=== PATIENT | male | born 1965 | race Caucasian/White ===

== ENCOUNTER 2016-11-14 17:29 | Emergency (ER) | payer OTHER ==
[~2016-11-14] VITALS: Ht 175.3 cm; Wt 117.9 kg
[~2016-11-14 17:29] MED LIST: AMOX1TAB10 PO; CETI10TA22 PO; CYCL10TA2 PO; LOSA100T6 PO; METH-37 PO; MONT10TA9 PO; NAPR500T8 PO; OMEP20CA5 PO; OXYC-250 PO; RANI150C PO
[2016-11-14 17:42] VITALS: BP 135/82
[2016-11-14] MEDS ORDERED: IPRATRPIUM/ALBUTEROL 0.5/2.5MG 3 ML NEBU. ONE (17:59)
--- NOTE | 2016-11-14 18:04 | PHYS DOC ---
Past Medical History Past Medical History: Asthma, COPD, Hypertension Past Surgical History: Cholecystectomy Additional Information: 3-4 CIGS/DAY Alcohol Use: None Drug Use: Marijuana Adult General Chief Complaint Chief Complaint: ASTHMA HPI HPI Patient is a 51 year old male, with a history of COPD, asthma and hypertension , presents emergency Department today with complaint of nonproductive cough, nasal congestion and difficulty breathing that began within the past 24 hours. Patient states he did began to have increased shortness of breath shortly after eating lunch a few hours ago. He states he became more concerned that the tibial to make it to work so he came to the emergency department. Patient is not oxygen dependent. He does have a nebulizer at home. He states he has not used his nebulizer within the past 48 hours. He denies steroid use, antibiotics , hospitalization, foreign travel within the past 90 days. Patient denies chest pain. He denies exertional dyspnea, orthopnea or PND. Review of Systems Review of Systems Constitutional: Denies fever or chills [] Eyes: Denies change in visual acuity, redness, or eye pain [] HENT: Denies nasal congestion or sore throat [] Respiratory: Denies cough or shortness of breath [] Cardiovascular: No additional information not addressed in HPI [] GI: Denies abdominal pain, nausea, vomiting, bloody stools or diarrhea [] : Denies dysuria or hematuria [] Musculoskeletal: Denies back pain or joint pain [] Integument: Denies rash or skin lesions [] Neurologic: Denies headache, focal weakness or sensory changes [] Endocrine: Denies polyuria or polydipsia [] Current Medications Current Medications Current Medications Medications (Trade) Dose Ordered Sig/Job Start Time Stop Time Status Last Admin Dose Admin Albuterol/ Ipratropium (Duoneb) 3 ml STK-MED ONCE 11/14/16 17:59 11/14/16 18:00 DC Oxymetazoline HCl (Afrin) 2 spray 1X ONCE 11/14/16 18:15 11/14/16 18:16 DC 11/14/16 18:04 2 SPRAY Prednisone (Prednisone) 50 mg 1X ONCE 11/14/16 18:15 11/14/16 18:16 DC 11/14/16 18:04 50 MG Allergies Allergies Allergies Coded Allergies Type Severity Reaction Last Updated Verified doxycycline Allergy Intermediate SWELLING RASH 12/08/15 Yes Physical Exam Physical Exam Constitutional: Well developed, well nourished, no acute distress, non-toxic appearance. [] HENT: Normocephalic, atraumatic, bilateral external ears normal, oropharynx moist, no oral exudates, boggy nasal mucosa with scant, clear rhinorrhea. Left tympanic membrane is mildly retracted with a low level fluid meniscus. There is no perforation, erythema or bulging. Is no evidence of mastoiditis. Eyes: PERRLA, EOMI, conjunctiva normal, no discharge. [] Neck: Normal range of motion, no tenderness, supple, no stridor. [] Cardiovascular:Heart rate regular rhythm, no murmur [] Lungs & Thorax: There is no evidence of respiratory distress respiratory fatigue. There is no sensory muscle use or posturing. Patient demonstrates a harsh, staccato bronchitic type cough. He is able to speak in full sentences. Oxygen saturation is 96% on room air. Lungs with a scant amount of bilateral, and expiratory wheezing. Abdomen: Bowel sounds normal, soft, no tenderness, no masses, no pulsatile masses. [] Skin: Warm, dry, no erythema, no rash. [] Back: No tenderness, no CVA tenderness. [] Extremities: No tenderness, no cyanosis, no clubbing, ROM intact, no edema. [] Neurologic: Alert and oriented X 3, normal motor function, normal sensory function, no focal deficits noted. [] Psychologic: Affect normal, judgement normal, mood normal. [] Current Patient Data Vital Signs Vital Signs Date Time Temp Pulse Resp B/P Pulse Ox O2 Delivery O2 Flow Rate FiO2 11/14/16 18:02 Room Air 11/14/16 17:42 97.9 91 20 99 97.9 EKG EKG [] Radiology/Procedures Radiology/Procedures [] Course & Med Decision Making Course & Med Decision Making Patient received Afrin nasal spray and both his nostrils, 50 mg of prednisone by mouth and DuoNeb treatment. He was reevaluated by me after this. He states that he feels much better. His lungs are clear to auscultation bilaterally. Dragon Disclaimer Dragon Disclaimer This electronic medical record was generated, in whole or in part, using a voice recognition dictation system. Departure Departure Impression: Primary Impression: Asthma exacerbation in COPD Disposition: HOME, SELF-CARE Condition: IMPROVED Referrals: AMADA BROWN MD (PCP) Patient Instructions: Asthma, Adult, [id number] Additional Instructions: 1. Use Afrin nasal spray twice a day for the next 3 days. Take the steroids as prescribed. Use your nebulizer at home every 6 hours as needed for shortness of breath. 2. Review the discharge instructions provided for self-care and reasons to return to the emergency department. 3. Contact Dr. Brown office on Tuesday to schedule follow-up appointment if there are any concerns. Scripts Prednisone 50 Mg [id number] Mg PO DAILY 5 Days Prov:CRISTHIAN ISSA 11/14/16 CRISTHIAN ISSA Nov 14, 2016 18:04
[2016-11-14] MEDS ORDERED: PREDNISONE 10 MG TABLET PO ONE (18:15)
[2016-11-14] MEDS ORDERED: OXYMETAZOLINE 0.05% NASAL SPRAY 30ML BOTTLE. NS ONE (18:15)
[2016-11-14] MEDS ORDERED: IPRATRPIUM/ALBUTEROL 0.5/2.5MG 3 ML NEBU. NEB ONE (18:15)
[2016-11-14] MEDS ORDERED: PRED50TA PO (18:18)
== END 2016-11-14 18:25 | disposition home or self-care (01) ==
LOC: ER 17:29
DX: J45.901 Unspecified asthma with (acute) exacerbation (principal); J44.9 Chronic obstructive pulmonary disease, unspecified; I10 Essential (primary) hypertension; F17.210 Nicotine dependence, cigarettes, uncomplicated; F12.10 Cannabis abuse, uncomplicated; Z88.1 Allergy status to other antibiotic agents
CPT/HCPCS: 94250; 94640; 99284; J7512; J7620

== ENCOUNTER 2017-04-19 09:20 | Emergency (ER) | payer OTHER ==
[~2017-04-19] VITALS: Ht 175.3 cm; Wt 117.9 kg
[~2017-04-19 09:20] MED LIST changes: -OXYC-250 PO; +OXYC-328 PO; +PRED50TA PO
[2017-04-19 10:05] VITALS: BP 141/93
--- NOTE | 2017-04-19 11:15 | PHYS DOC ---
Past Medical History Past Medical History: Asthma, COPD, Hypertension Past Surgical History: Cholecystectomy Alcohol Use: Occasionally Drug Use: Marijuana Adult General Chief Complaint Chief Complaint: MECHANICAL FALL HPI HPI Patient is a 52 year old male presents to the emergency department stating that he was mowing his yard on Tuesday when he fell on normal: Landed on his right hip and right shoulder. He states that he has been having increased pain and discomfort in the right shoulder with trying to move his arm. He states that he is also been having some hip pain and discomfort however his been able to ambulate without difficulty. Patient states that he's been taken ibuprofen and mobic for his pain and discomfort. He states he had the mobic for right knee pain. Patient states he's been able to ambulate without any difficulty. Patient states that he has been having some numbness and tingling into his right hand. 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 Peripheral pulses 2+ cap refill brisk less than 2 seconds good sensation noted. Patient is right-hand dominant. Review of Systems Review of Systems Constitutional: Denies fever or chills [] Eyes: Denies change in visual acuity, redness, or eye pain [] HENT: Denies nasal congestion or sore throat [] Respiratory: Denies cough or shortness of breath [] Cardiovascular: No additional information not addressed in HPI [] GI: Denies abdominal pain, nausea, vomiting, bloody stools or diarrhea [] : Denies dysuria or hematuria [] Musculoskeletal: Denies back pain. Complaint of right shoulder, right hip pain Integument: Denies rash or skin lesions [] Neurologic: Denies headache, focal weakness or sensory changes [] Endocrine: Denies polyuria or polydipsia [] Allergies Allergies Allergies Coded Allergies Type Severity Reaction Last Updated Verified doxycycline Allergy Intermediate SWELLING RASH 12/08/15 Yes Physical Exam Physical Exam Constitutional: Well developed, well nourished, no acute distress, non-toxic appearance. [] HENT: Normocephalic, atraumatic, bilateral external ears normal, oropharynx moist, no oral exudates, nose normal. [] Eyes: PERRLA, EOMI, conjunctiva normal, no discharge. [] Neck: Normal range of motion, no tenderness, supple, no stridor. [] Cardiovascular:Heart rate regular rhythm, no murmur [] Lungs & Thorax: Bilateral breath sounds clear to auscultation [] Skin: Warm, dry, no erythema, no rash. [] Back: No tenderness Extremities: Right shoulder tenderness, decreased range of motion noted in the shoulder area. Peripheral pulses are 2+ cap refill brisk less than 2 seconds. 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 Patient also noted to have tenderness in the right hip area. Patient with no tenderness noted in the knee, ankle. He is able to ambulate with a good steady gait. No cyanosis, no clubbing , ROM intact, no edema. [] Neurologic: Alert and oriented X 3, normal motor function, normal sensory function, no focal deficits noted. [] Psychologic: Affect normal, judgement normal, mood normal. [] Current Patient Data Vital Signs Vital Signs Date Time Temp Pulse Resp B/P (MAP) Pulse Ox O2 Delivery O2 Flow Rate FiO2 04/19/17 10:05 97.4 80 16 98 Room Air 97.4 EKG EKG [] Radiology/Procedures Radiology/Procedures [address] [address] IMAGING REPORT Signed PATIENT: BESSIE ZAPATA ACCOUNT: [id number] : 1965 LOCATION: ER AGE: 52 SEX: M EXAM STATUS: REG ER ORD. PHYSICIAN: COLLIN GREENE APRN REASON: fell in [facility] landed on right side,pain rt hip and shoulder. PROCEDURE: SHOULDER 2+V RIGHT Right shoulder, 3 views, 04/19/2017: History: Fall, pain There is deformity of the distal end of the right clavicle, similar to that seen on a chest radiograph from 07/24/2012. This is probably due to remote trauma with secondary degenerative change at the AC joint. No acute fracture or dislocation is identified. There is mild degenerative change at the glenohumeral joint. IMPRESSION: No acute bony abnormality is detected. DICTATED and SIGNED BY: DIVINE DALEY MD DATE: 04/19/17 1155 CC: COLLIN GREENE APRN; NON,STAFF; AMADA BROWN MD ~[] [facility] [address] [place] [address] IMAGING REPORT Signed PATIENT: BESSIE ZAPATA ACCOUNT: [id number] : 1965 LOCATION: ER AGE: 52 SEX: M EXAM STATUS: REG ER ORD. PHYSICIAN: COLLIN GREENE APRN REASON: fell in [facility] landed on right side PROCEDURE: HIP RIGHT 2V WITH PELVIS Pelvis with right hip, 3 views, 04/19/2017: History: Fall, hip pain No acute fracture or dislocation is identified. There is mild spurring at the hip joints and at the symphysis pubis. Mild degenerative changes are evident in the lower lumbar spine. IMPRESSION: No acute bony abnormality is detected. DICTATED and SIGNED BY: DIVINE DALEY MD DATE: 04/19/17 0952 CC: COLLIN GREENE APRN; NON,STAFF; AMADA BROWN MD ~ Course & Med Decision Making Course & Med Decision Making Pertinent Labs and Imaging studies reviewed. (See chart for details) X-rays were negative for any bony abnormalities. Patient will be placed in a sling with recommendations to follow-up with orthopedic. Patient will be discharged home with recommendations to continue with his home medications. Recommended ice packs on 20 minutes off 20 minutes several times today. Also recommended he take his arm out of the sling 4-5 times a day and do active range of motion. Patient will be discharged home in stable condition signs and symptoms to return back to emergency department as been provided. Patient agrees with discharge instructions treatment regimens and follow-up recommendations. All questions and concerns been answered at the patient's bedside. [] Dragon Disclaimer Dragon Disclaimer This electronic medical record was generated, in whole or in part, using a voice recognition dictation system. Departure Departure Impression: Primary Impression: Right shoulder pain Additional Impression: Right hip pain Disposition: 01 HOME, SELF-CARE Condition: STABLE Referrals: AMADA BROWN MD (PCP) Patient Instructions: Hip Pain, Shoulder Pain, [id number] Additional Instructions: Activity as tolerated. Wear the sling for comfort for the next week. Take your arm out of the sling 4-5 times a day and do active range of motion. Follow-up with orthopedic in the next week. Continue with your home medications in which you have been taken for pain and discomfort. Ice packs on 20 minutes off 20 minutes several times a day. Return back to emergency prior signs symptoms of become worse. Problem Qualifiers Primary Impression: Right shoulder pain Chronicity: acute Qualified Codes: M25.511 - Pain in right shoulder COLLIN GREENE APRN Apr 19, 2017 11:15
--- NOTE | 2017-04-19 11:55 | RAD ---
Right shoulder, 3 views, 04/19/2017: History: Fall, pain There is deformity of the distal end of the right clavicle, similar to that seen on a chest radiograph from 07/24/2012. This is probably due to remote trauma with secondary degenerative change at the AC joint. No acute fracture or dislocation is identified. There is mild degenerative change at the glenohumeral joint. IMPRESSION: No acute bony abnormality is detected.
--- NOTE | 2017-04-19 11:56 | RAD ---
Pelvis with right hip, 3 views, 04/19/2017: History: Fall, hip pain No acute fracture or dislocation is identified. There is mild spurring at the hip joints and at the symphysis pubis. Mild degenerative changes are evident in the lower lumbar spine. IMPRESSION: No acute bony abnormality is detected.
== END 2017-04-19 12:38 | disposition home or self-care (01) ==
LOC: ER 09:20
DX: M25.551 Pain in right hip (principal); M25.511 Pain in right shoulder; J44.9 Chronic obstructive pulmonary disease, unspecified; I10 Essential (primary) hypertension; Z88.1 Allergy status to other antibiotic agents; W17.1XXA Fall into storm drain or manhole, initial encounter; Y93.89 Activity, other specified; Y99.8 Other external cause status; Y92.89 Other specified places as the place of occurrence of the external cause
CPT/HCPCS: 73030; 73502; 99284-25

== ENCOUNTER 2017-09-03 15:44 | Emergency (ER) | payer OTHER ==
[2017-09-03] MEDS ORDERED: DIPHTH,PERTUSS(ACELL),TET TOX 0.5 ML DISP.SYRIN. VAX IM (16:00)
[2017-09-03] MEDS ORDERED: LIDOCAINE WITH 8.4% SOD BICARB 3 ML DISP.SYRIN. IJ (16:00)
[2017-09-03] MEDS: HYDROcodone/APAP 5/325MG 1 TAB TABLET PO (16:32)
== END 2017-09-03 16:39 | disposition home or self-care (01) ==
LOC: ER 15:44
DX: L02.212 Cutaneous abscess of back [any part, except buttock and flank] (principal); S20.461A Insect bite (nonvenomous) of right back wall of thorax, initial encounter; J44.9 Chronic obstructive pulmonary disease, unspecified; I10 Essential (primary) hypertension; F12.10 Cannabis abuse, uncomplicated; Z88.1 Allergy status to other antibiotic agents; W57.XXXA Bitten or stung by nonvenomous insect and other nonvenomous arthropods, initial encounter; Y93.89 Activity, other specified; Y99.8 Other external cause status; Y92.89 Other specified places as the place of occurrence of the external cause
CPT/HCPCS: 10060; 99283-25

== ENCOUNTER → 2017-11-01 | Outpatient (CLI) | payer OTHER | END | disposition home or self-care (01) | LOC: RAD 14:43 | DX: M47.22 Other spondylosis with radiculopathy, cervical region (principal) | CPT/HCPCS: 72050 ==

== ENCOUNTER → 2018-04-14 | Outpatient (CLI) | payer OTHER ==
[2017-09-03 15:58] VITALS: BP 159/87
[~2018-04-14] MED LIST changes: +CEPH500C PO; +HYDR-971 PO; +SULF1TAB24 PO
--- NOTE | 2018-04-14 08:59 | KCIC ---
Three-view right knee dated 04/14/2018. No comparison available. Clinical data indication: Anterior knee pain for one month. Swelling. FINDINGS: 3 views right knee show normal bony alignment. No displaced fracture. Mild tricompartmental hypertrophic change. Suspect small joint effusion. Small loose body at the posterior joint space. IMPRESSION: 1. No acute radiographic abnormality. 2. Mild tricompartmental degenerative arthrosis. 3. Suspected small joint effusion with small loose body at the posterior joint space. Electronically signed by: Kang Martinez MD (04/14/2018 8:57 AM) [id number]
--- NOTE | 2018-04-14 09:02 | KCIC ---
MRI Cervical Spine Without Contrast History: Cervicalgia, neck pain, right radiculopathy for 1.5 months, right shoulder pain Technique: Multiplanar, multi sequential noncontrast MR imaging was performed of the cervical spine. Comparison: None Findings: There is motion degradation, limits accurate evaluation of the neural foramina. There is straightening of cervical spine, very mild segmental reversal of the lordotic curvature centered at C5-6. There is grade 1 anterior spondylolisthesis at C4-C5. There is moderate to severe degenerative disc disease C5-6, minimally at C4-5 and C2-C3. There is trace inferior C5 endplate edema likely reactive/degenerative in etiology. There is mild fluid associated with the C1-C2 articulation greater on the left. Cervical cord caliber is within normal limits, no defined or expansile signal change. Cervical vertebral body stature is maintained. There is no significant abnormality of the cervical medullary junction. There is mild levoscoliosis of the cervical spine. C2-C3: There is uncovertebral degenerative change greater on the right. There is advr-li-[id number] narrowing of the right neural foramen, minimal narrowing on the left. There is minimal disc osteophyte complex eccentric to the far right lateral recess. Spinal canal is overall adequate. C3-C4: There is severe right facet degenerative change . There is right uncovertebral degenerative change. Spinal canal and left neural foramen are adequate, severe narrowing of the right neural foramen. C4-C5: There is severe left facet hypertrophic change. Spinal canal and right neural foramen are adequate, fairly severe narrowing of the left neural foramen. C5-C6: There is minimal disc osteophyte complex. Central canal is borderline about 10 mm. There is moderate to severe facet degenerative change bilaterally. There is right uncovertebral degenerative change. There is severe right and at least moderate left neural foramina compromise. C6-C7: There is bilateral facet degenerative change. The spinal canal and neural foramina are adequate. C7-T1: There is bilateral facet degenerative change. Spinal canal and neural foramina are adequate. Impression: 1. There is multilevel facet and uncovertebral degenerative change contributing to neural foramina compromise, more significant narrowing on the right at C3-C4, on the left at C4-5, and right greater than left at C5-6. 2. There is degenerative disc disease greatest C5-C6, to lesser degree at C4-5 and C2-3. There is mild spondylosis. 3. There is grade 1 anterior spondylolisthesis C4-C5. 4. There is mild fluid associated with the C1-C2 lateral mass articulation probably reactive/degenerative in etiology. Electronically signed by: Bola Aragon MD (04/14/2018 8:59 AM) [id number]
== END | disposition home or self-care (01) ==
LOC: KCIC MRI 07:47
PROVIDERS: ATTEND Family Medicine
DX: M17.11 Unilateral primary osteoarthritis, right knee (principal); M50.31 Other cervical disc degeneration, high cervical region; M47.892 Other spondylosis, cervical region; M43.12 Spondylolisthesis, cervical region; M48.02 Spinal stenosis, cervical region; I10 Essential (primary) hypertension; J44.9 Chronic obstructive pulmonary disease, unspecified; Z87.891 Personal history of nicotine dependence; Z88.1 Allergy status to other antibiotic agents
CPT/HCPCS: 72141; 73562

== ENCOUNTER → 2018-05-03 | Day surgery (SDC) | payer OTHER ==
[~2018-05-03] MED LIST changes: +HYDROmorphone 2 MG/ML VIAL IV PRN; +IV RINGERS,LACTATED 1000ML 1,000 ML IV SCH; +LIDOCAINE 1% PF 2 ML VIAL. ID PRN; -LOSA100T6 PO; +LOSA100T7 PO; +MORPHINE SULFATE 2 MG/ML VIAL. IV PRN; +ONDANSETRON PF 4 MG/2 ML VIAL. IV PRN; +PROCHLORPERAZINE 10 MG/2 ML VIAL. IV PRN; +PROPOFOL 20 ML IV ONE; +fentaNYL PF VIAL 100 MCG/2 ML VIAL IV PRN
[2018-05-03 07:50] VITALS: BP 140/87
== END | disposition home or self-care (01) ==
LOC: ENDOS 06:06
PROVIDERS: ATTEND Internal Medicine Gastroenterology
DX: K29.50 Unspecified chronic gastritis without bleeding (principal); Z88.1 Allergy status to other antibiotic agents
CPT/HCPCS: 43235; J2704

== ENCOUNTER → 2018-05-12 | Outpatient (CLI) | payer OTHER ==
[2018-05-03 07:50] VITALS: BP 140/87
[~2018-05-12] MED LIST changes: -HYDROmorphone 2 MG/ML VIAL IV PRN; -IV RINGERS,LACTATED 1000ML 1,000 ML IV SCH; -LIDOCAINE 1% PF 2 ML VIAL. ID PRN; -MORPHINE SULFATE 2 MG/ML VIAL. IV PRN; -ONDANSETRON PF 4 MG/2 ML VIAL. IV PRN; -PROCHLORPERAZINE 10 MG/2 ML VIAL. IV PRN; -PROPOFOL 20 ML IV ONE; -fentaNYL PF VIAL 100 MCG/2 ML VIAL IV PRN
--- NOTE | 2018-05-12 14:11 | RAD ---
Gastric Emptying Study 05/12/2018 Indication: Nausea and vomiting. Procedure: Anterior and posterior projection static images are obtained over the stomach following oral administration of 2.2 mCi of 99 M technetium sulfur colloid in a solid meal (egg and toast). 1 and 2 hour time point were collected. The patient then terminated the study secondary to a family emergency. This limits the exam. Findings: There is progressive emptying of the stomach on sequential images. Percentage retention at... One hour is 36% (normal 34.8-91%). Two hours 13% (normal 2.7-60%). Based on available data give estimated gastric emptying half-time is 46 minutes. (Normal ranges from 30 to 90 minutes) Impression: Normal gastric emptying half time. Only one and 2 hour time time points were measured as described. These values are within normal limits. Consensus Recommendations for Gastric Emptying Scintigraphy: A Joint Report of the [place] [employer] and the Society of Nuclear Medicine: J. Nucl. Med. Technol. October 2007 vol. 36 no. 1 44-54 Grading for severity of delayed GE based on the 4-h value: grade 1 (mild): 11?20% retention at 4 h grade 2 (moderate): 21?35% retention at 4 h grade 3 (severe): 36?50% retention at 4 h grade 4 (very severe): >50% retention at 4 h. Electronically signed by: Taiwo Marks MD (05/12/2018 2:07 PM) [id number]
== END | disposition home or self-care (01) ==
LOC: NM 07:49
PROVIDERS: ATTEND Internal Medicine Gastroenterology
DX: R10.13 Epigastric pain (principal); R11.2 Nausea with vomiting, unspecified; I10 Essential (primary) hypertension; M17.11 Unilateral primary osteoarthritis, right knee; J44.9 Chronic obstructive pulmonary disease, unspecified; Z87.891 Personal history of nicotine dependence; Z90.49 Acquired absence of other specified parts of digestive tract; Z88.1 Allergy status to other antibiotic agents
CPT/HCPCS: 78264; A9541

== ENCOUNTER 2018-06-30 22:17 | Emergency (ER) | payer OTHER ==
[~2018-06-30] VITALS: Ht 175.3 cm; Wt 113.4 kg
[2018-06-30 22:17] VITALS: BP 155/70
[~2018-06-30 22:17] MED LIST changes: +HYDR-3164 PO; -HYDR-971 PO
[2018-06-30] MEDS ORDERED: AZIT250T PO (22:49)
--- NOTE | 2018-06-30 22:50 | PHYS DOC ---
Past Medical History Past Medical History: Asthma, Bronchitis, COPD, Hypertension, Other Additional Past Medical Histor: Upper Respiratory Infection Past Surgical History: Cholecystectomy Additional Past Surgical Histo: R testicular surgery Additional Information: 3-4 cigarettes per day Alcohol Use: Rarely Drug Use: Marijuana Adult General Chief Complaint Chief Complaint: COUGH HPI HPI Patient is a 53 year old male who presents with a strong cough. The patient is a smoker and states that he gets bronchitis every year. He denies fever. He denies asthma or COPD. The cough is very strong and hacking. Review of Systems Review of Systems Constitutional: Denies fever or chills [] Eyes: Denies change in visual acuity, redness, or eye pain [] HENT: Denies nasal congestion or sore throat [] Respiratory: See history of present illness Cardiovascular: No additional information not addressed in HPI [] GI: Denies abdominal pain, nausea, vomiting, bloody stools or diarrhea [] : Denies dysuria or hematuria [] Musculoskeletal: Denies back pain or joint pain [] Integument: Denies rash or skin lesions [] Neurologic: Denies headache, focal weakness or sensory changes [] Endocrine: Denies polyuria or polydipsia [] All other systems were reviewed and found to be within normal limits, except as documented in this note. Allergies Allergies Allergies Coded Allergies Type Severity Reaction Last Updated Verified tetracycline Allergy Intermediate Hives 05/03/18 Yes Physical Exam Physical Exam Constitutional: Well developed, well nourished, no acute distress, non-toxic appearance. [] Cardiovascular:Heart rate regular rhythm, no murmur [] Lungs & Thorax: Bilateral breath sounds clear to auscultation with harsh, paroxysmal, deep cough noted [] Abdomen: Bowel sounds normal, soft, no tenderness, no masses, no pulsatile masses. [] Skin: Warm, dry, no erythema, no rash. [] Back: No tenderness, no CVA tenderness. [] Extremities: No tenderness, no cyanosis, no clubbing, ROM intact, no edema. [] Neurologic: Alert and oriented X 3, normal motor function, normal sensory function, no focal deficits noted. [] Psychologic: Affect normal, judgement normal, mood normal. [] Current Patient Data Vital Signs Vital Signs Date Time Temp Pulse Resp B/P (MAP) Pulse Ox O2 Delivery O2 Flow Rate FiO2 11/16/18 22:17 98.3 94 24 155/70 (98) 99 Room Air 98.3 EKG EKG [] Radiology/Procedures Radiology/Procedures []No acute cardiopulmonary process noted on x-ray. This x-ray was read by Dr. Mendoza in the emergency department. Course & Med Decision Making Course & Med Decision Making Pertinent Labs and Imaging studies reviewed. (See chart for details) [] Dragon Disclaimer Dragon Disclaimer This electronic medical record was generated, in whole or in part, using a voice recognition dictation system. Departure Departure Impression: Primary Impression: Bronchitis Disposition: HOME, SELF-CARE Condition: STABLE Referrals: AMADA BROWN MD (PCP) Patient Instructions: Bronchitis Additional Instructions: You may use [id number] cough and cold medication to treat your cough symptoms. Follow-up with your primary care provider if not improving in one week. Take the medication as prescribed. Scripts Azithromycin (ZITHROMAX) 250 Mg Tablet 1 PKG PO UD for infection, #1 PKG Prov: BERNADETTE RAMÍREZ APRN 06/30/18 BERNADETTE RAMÍREZ APRN Jun 30, 2018 22:50
--- NOTE | 2018-07-01 08:15 | RAD ---
EXAM: PA and Lateral Views of the Chest DATE: 06/30/2018 10:34 PM INDICATION: Cough, hx of asthma COMPARISON: No Prior FINDINGS: The heart is not enlarged. Mediastinal and hilar contours are normal. No focal parenchymal airspace opacity. Calcified granulomas are seen within the right lung. No pleural effusion or pneumothorax. IMPRESSION: 1. No radiographic evidence for acute cardiopulmonary process. Electronically signed by: Jaziel Mott MD (07/01/2018 8:12 AM) [facility]
== END 2018-06-30 22:52 | disposition home or self-care (01) ==
LOC: ER 22:17
DX: J40 Bronchitis, not specified as acute or chronic (principal); J44.9 Chronic obstructive pulmonary disease, unspecified; I10 Essential (primary) hypertension; F17.210 Nicotine dependence, cigarettes, uncomplicated; Z90.49 Acquired absence of other specified parts of digestive tract; Z88.1 Allergy status to other antibiotic agents
CPT/HCPCS: 71046; 99284

== ENCOUNTER 2018-11-01 15:12 | Inpatient (IN) | payer OTHER ==
[~2018-11-01] VITALS: Ht 175.3 cm; Wt 115.8 kg
[~2018-11-01 15:12] MED LIST changes: +AZIT250T PO; +LOSA100T14 PO; -LOSA100T7 PO; -OXYC-328 PO; +OXYC1TAB22 PO
--- NOTE | 2018-11-01 16:03 | PHYS DOC ---
Past Medical History Past Medical History: Asthma, Bronchitis, COPD, Hypertension, Other Additional Past Medical Histor: Upper Respiratory Infection Past Surgical History: Cholecystectomy Additional Past Surgical Histo: R testicular surgery Alcohol Use: Rarely Drug Use: Marijuana Adult General Chief Complaint Chief Complaint: COUGH HPI HPI Patient is a 53 year old male presented ER today for evaluation of productive cough with bloody sputum, nausea vomiting, abdominal pain for about 3 days. Patient also complaint of trouble breathing. Patient denies chest pain. Patient is a smoker, has history COPD, he is not on any oxygen at home. Patient denies history of coronary artery disease. He does have fever and chill. Review of Systems Review of Systems Constitutional: positive for fever or chills [] Eyes: Denies change in visual acuity, redness, or eye pain [] HENT: Denies nasal congestion or sore throat [] Respiratory: Positive for cough amd shortness of breath [] Cardiovascular: No additional information not addressed in HPI [] GI: Positive for abdominal pain, nausea, vomiting, NO bloody stools or diarrhea [] : Denies dysuria or hematuria [] Musculoskeletal: Denies back pain or joint pain [] Integument: Denies rash or skin lesions [] Neurologic: Denies headache, focal weakness or sensory changes [] Endocrine: Denies polyuria or polydipsia [] All other systems were reviewed and found to be within normal limits, except as documented in this note. Current Medications Current Medications Current Medications Medications (Trade) Dose Ordered Sig/Job Start Time Stop Time Status Last Admin Dose Admin Acetaminophen (Tylenol) 650 mg PRN Q4HRS PRN 11/01/18 17:45 11/02/18 17:44 UNV Albuterol/ Ipratropium (Duoneb) 3 ml RTQID 11/01/18 20:00 11/02/18 19:59 UNV Azithromycin 250 ml @ 250 mls/hr 1X ONCE 11/01/18 17:15 11/01/18 18:14 Ceftriaxone Sodium (Rocephin) 1 gm 1X ONCE 11/01/18 17:15 11/01/18 17:16 DC Ibuprofen (Motrin) 800 mg 1X ONCE 11/01/18 16:15 11/01/18 16:16 DC 11/01/18 16:45 800 MG Morphine Sulfate (Morphine Sulfate) 2 mg PRN Q2HR PRN 11/01/18 17:45 11/02/18 17:44 UNV Ondansetron HCl (Zofran) 4 mg PRN Q8HRS PRN 11/01/18 17:45 11/02/18 17:44 UNV Potassium Chloride (Klor-Con) 40 meq 1X ONCE 11/01/18 17:45 11/01/18 17:46 Sodium Chloride 1,000 ml @ 100 mls/hr Q10H 11/01/18 17:34 11/02/18 17:33 UNV Allergies Allergies Allergies Coded Allergies Type Severity Reaction Last Updated Verified tetracycline Allergy Intermediate Hives 05/03/18 Yes Physical Exam Physical Exam Constitutional: Well developed, well nourished, no acute distress, non-toxic appearance. [] HENT: Normocephalic, atraumatic, bilateral external ears normal, oropharynx moist, no oral exudates, nose normal. [] Eyes: PERRLA, EOMI, conjunctiva normal, no discharge. [] Neck: Normal range of motion, no tenderness, supple, no stridor. [] Cardiovascular:Heart rate regular rhythm, no murmur [] Lungs & Thorax: Bilateral breath sounds clear to auscultation [] Abdomen: Bowel sounds normal, soft, DIFFUSE ABDOMINAL tenderness, no masses, no pulsatile masses. [] Skin: Warm, dry, no erythema, no rash. [] Back: No tenderness, no CVA tenderness. [] Extremities: No tenderness, no cyanosis, no clubbing, ROM intact, no edema. [] Neurologic: Alert and oriented X 3, normal motor function, normal sensory function, no focal deficits noted. [] Psychologic: Affect normal, judgement normal, mood normal. [] Current Patient Data Vital Signs Vital Signs Date Time Temp Pulse Resp B/P (MAP) Pulse Ox O2 Delivery O2 Flow Rate FiO2 11/01/18 16:29 94 Room Air 11/01/18 15:55 102.2 121 24 94/53 (67) 102.2 Lab Values Laboratory Tests Test 11/01/18 16:06 11/01/18 16:40 Influenza Type A Antigen Negative (NEGATIVE) Influenza Type B Antigen Negative (NEGATIVE) White Blood Count 34.0 x10^3/uL (4.0-11.0) H Red Blood Count 4.84 x10^6/uL (4.30-5.70) Hemoglobin 11.0 g/dL (13.0-17.5) L Hematocrit 34.8 % (39.0-53.0) L Mean Corpuscular Volume 72 fL (79-100) L Mean Corpuscular Hemoglobin 23 pg (25-35) L Mean Corpuscular Hemoglobin Concent 32 g/dL (31-37) Red Cell Distribution Width 14.8 % (11.5-14.5) H Platelet Count 230 x10^3/uL (140-400) Neutrophils (%) (Auto) 88 % (31-73) H Lymphocytes (%) (Auto) 4 % (24-48) L Monocytes (%) (Auto) 8 % (0-9) Eosinophils (%) (Auto) 0 % (0-3) Basophils (%) (Auto) 0 % (0-3) Neutrophils # (Auto) 29.8 x10^3uL (1.8-7.7) H Lymphocytes # (Auto) 1.4 x10^3/uL (1.0-4.8) Monocytes # (Auto) 2.7 x10^3/uL (0.0-1.1) H Eosinophils # (Auto) 0.0 x10^3/uL (0.0-0.7) Basophils # (Auto) 0.1 x10^3/uL (0.0-0.2) Platelet Estimate Pending Prothrombin Time 17.1 SEC (11.7-14.0) H Prothrombin Time INR 1.4 (0.8-1.1) H PTT 42 SEC (24-38) H Sodium Level 137 mmol/L (136-145) Potassium Level 3.0 mmol/L (3.5-5.1) L Chloride Level 98 mmol/L (98-107) Carbon Dioxide Level 25 mmol/L (21-32) Anion Gap 14 (6-14) Blood Urea Nitrogen 20 mg/dL (8-26) Creatinine 1.5 mg/dL (0.7-1.3) H Estimated GFR (Cockcroft-Gault) 49.0 BUN/Creatinine Ratio 13 (6-20) Glucose Level 141 mg/dL (70-99) H Lactic Acid Level 1.7 mmol/L (0.4-2.0) Calcium Level 8.2 mg/dL (8.5-10.1) L Total Bilirubin 1.9 mg/dL (0.2-1.0) H Aspartate Amino Transferase (AST) 57 U/L (15-37) H Alanine Aminotransferase (ALT) 107 U/L (16-63) H Alkaline Phosphatase 114 U/L (46-116) Creatine Kinase 168 U/L (39-308) Creatine Kinase MB (Mass) 0.5 ng/mL (0.0-3.6) Creatine Kinase MB Relative Index 0.3 % (0-4) Troponin I Quantitative < 0.017 ng/mL (0.000-0.055) Total Protein 7.1 g/dL (6.4-8.2) Albumin 3.3 g/dL (3.4-5.0) L Albumin/Globulin Ratio 0.9 (1.0-1.7) L Lipase 52 U/L (73-393) L Laboratory Tests 11/01/18 16:40 Laboratory Tests 11/01/18 16:40 EKG EKG [] Radiology/Procedures Radiology/Procedures [][facility] [address] [place] [address] IMAGING REPORT Signed PATIENT: BESSIE ZAPATA ACCOUNT: [id number] : 1965 LOCATION: ER AGE: 53 SEX: M EXAM STATUS: REG ER ORD. PHYSICIAN: SHMUEL SHELTON DO REASON: COUGH PROCEDURE: PORTABLE CHEST 1V PROCEDURE: PORTABLE CHEST 1V CLINICAL INDICATION: ER PATIENT. COUGH WITH BLOOD. Hx HTN, ASTHMA, COPD. PRIOR XRAY. COMPARISON: 06/30/2018 FINDINGS: Heart is normal in size. Scattered calcified granulomas in the right lung. Prominent bilateral central bronchial markings are seen. No focal consolidation. No pneumothorax or pleural effusion. Visualized bony thorax is within normal limits. IMPRESSION: Findings of bronchitis. Electronically signed by: Usman Cooper DO (11/01/2018 4:45 PM) [facility] DICTATED and SIGNED BY: USMAN COOPER DO DATE: 11/01/18 8284 Course & Med Decision Making Course & Med Decision Making Pertinent Labs and Imaging studies reviewed. (See chart for details) [] Dragon Disclaimer Dragon Disclaimer This electronic medical record was generated, in whole or in part, using a voice recognition dictation system. Departure Departure Impression: Primary Impression: CAP (community acquired pneumonia) Additional Impression: Asthma exacerbation in COPD Disposition: 09 ADMITTED INPATIENT Admitting Physician: Vanda Us Condition: STABLE Referrals: AMADA BROWN MD (PCP) Problem Qualifiers SHMUEL SHELTON DO Nov 01, 2018 16:03
[2018-11-01] MEDS ORDERED: ONDANSETRON PF 4 MG/2 ML VIAL. IV ONE (16:15)
[2018-11-01] MEDS ORDERED: IV NORMAL SALINE 1000ML BAG 1,000 ML IV ONE ×4 (16:15→18:30)
[2018-11-01] MEDS ORDERED: IBUPROFEN 400 MG TABLET. PO ONE (16:15)
[2018-11-01] MEDS ORDERED: ACETAMINOPHEN 500 MG TABLET PO ONE (16:15)
[2018-11-01] MEDS ORDERED: IPRATRPIUM/ALBUTEROL 0.5/2.5MG 3 ML NEBU. NEB ONE (16:15)
[2018-11-01 16:40] LABS: INFLUENZA A PATIENT NEGATIVE (NEGATIVE); INFLUENZA B PATIENT NEGATIVE (NEGATIVE)
--- NOTE | 2018-11-01 16:47 | RAD ---
PROCEDURE: PORTABLE CHEST 1V CLINICAL INDICATION: ER PATIENT. COUGH WITH BLOOD. Hx HTN, ASTHMA, COPD. PRIOR XRAY. COMPARISON: 06/30/2018 FINDINGS: Heart is normal in size. Scattered calcified granulomas in the right lung. Prominent bilateral central bronchial markings are seen. No focal consolidation. No pneumothorax or pleural effusion. Visualized bony thorax is within normal limits. IMPRESSION: Findings of bronchitis. Electronically signed by: Usman Cooper DO (11/01/2018 4:45 PM) [facility]
[2018-11-01 16:56] LABS: BASO # 0.1 x10^3/uL (0.0-0.2); BASO % 0 % (0-3); EOS % 0 % (0-3); HEMATOCRIT 34.8 % (39.0-53.0); LYMPH # 1.4 x10^3/uL (1.0-4.8); LYMPH % 4 % (24-48); MEAN CORPUSCULAR HEMOGLOBIN 23 pg (25-35); MEAN CORPUSCULAR HGB CONC 32 g/dL (31-37); MEAN CORPUSCULAR VOLUME 72 fL (79-100); MONO # 2.7 x10^3/uL (0.0-1.1); MONO % 8 % (0-9); NEUT # 29.8 x10^3uL (1.8-7.7); NEUT % 88 % (31-73); PLATELET COUNT 230 x10^3/uL (140-400); RED BLOOD COUNT 4.84 x10^6/uL (4.30-5.70); RED CELL DISTRIBUTION WIDTH 14.8 % (11.5-14.5)
[2018-11-01 17:04] LABS: PROTHROMBIN TIME PATIENT 17.1 SEC (11.7-14.0)
[2018-11-01 17:06] LABS: CALCIUM 8.2 mg/dL (8.5-10.1); CREATININE 1.5 mg/dL (0.7-1.3)
[2018-11-01 17:13] LABS: ALBUMIN 3.3 g/dL (3.4-5.0); ALBUMIN/GLOBULIN RATIO 0.9 (1.0-1.7); TOTAL BILIRUBIN 1.9 mg/dL (0.2-1.0); TOTAL PROTEIN 7.1 g/dL (6.4-8.2)
[2018-11-01] MEDS ORDERED: AZITHRMYCN 500MG IVPB FOR OMNI 250 ML IV ONE (17:15)
[2018-11-01] MEDS ORDERED: cefTRIAXone IV Push 1 GM VIAL. IVP ONE (17:15)
[2018-11-01 17:34] LABS: BILIRUBIN,URINE MODERATE (NEG); CLARITY,URINE CLEAR; COLOR,URINE ORANGE; NITRITE,URINE POSITIVE (NEG); PROTEIN,URINE NEGATIVE (NEG-TRACE)
[2018-11-01] MEDS ORDERED: MORPHINE SULFATE 2 MG/ML VIAL. IV PRN (17:45)
[2018-11-01] MEDS ORDERED: ACETAMINOPHEN 325 MG TABLET. PO PRN (17:45)
[2018-11-01] MEDS ORDERED: POTASSIUM CHLORIDE 20 MEQ TABLET.ER. PO ONE (17:45)
[2018-11-01] MEDS ORDERED: ONDANSETRON PF 4 MG/2 ML VIAL. IV PRN (17:45)
[2018-11-01] MEDS ORDERED: methylPREDNISolone SOD SUCC PF 125 MG/2 ML VIAL. IV ONE (17:45)
[2018-11-01 17:46] LABS: BACTERIA,URINE FEW /HPF (0-FEW); HYALINE CASTS, URINE MODERATE /HPF; RBC,URINE 0 /HPF (0-2)
[2018-11-01 18:25] LABS: % BANDS 26 % (0-9); % LYMPHS 5 % (24-48); % METAS 1 % (0-0); % MONOS 6 % (0-10); % SEGS 62 % (35-66)
[2018-11-01 18:27] LABS: HYPOCHROMIA MOD; MICROCYTOSIS SLIGHT; OVALOCYTES FEW; PLT ESTIMATE ADEQUATE (ADEQUATE); POLYCHROMASIA SLIGHT; TARGET CELLS FEW
[2018-11-01 18:28] LABS: TOXIC VACUOLATION SLIGHT
[2018-11-01 19:45] VITALS: BP 98/55
[2018-11-01] MEDS ORDERED: ALBU2.5V8 INH (20:18)
[2018-11-01] MEDS: IPRATRPIUM/ALBUTEROL 0.5/2.5MG 3 ML NEBU. NEB SCH (20:27)
[2018-11-01] MEDS: IV NORMAL SALINE 1000ML BAG 1,000 ML IV SCH (21:28)
[2018-11-01 23:32] VITALS: BP 91/40
[2018-11-02 03:35] VITALS: BP 100/52
--- NOTE | 2018-11-02 06:56 | EKG ---
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
[2018-11-02 07:00] VITALS: BP 106/62
[2018-11-02] MEDS: IPRATRPIUM/ALBUTEROL 0.5/2.5MG 3 ML NEBU. NEB SCH ×4 (07:15→20:15)
--- NOTE | 2018-11-02 07:21 | NUR ---
Pt admitted during the noc. No complaints noted at this time. Pt continues with chronic cough however able to rest with eyes closed. Pt SR on monitor. No complaints of pain noted at this time. Will continue current plan of care.
--- NOTE | 2018-11-02 08:16 | PDOC1 ---
History and Physical Date of Admission Date of Admission DATE: 11/02/18 TIME: 08:13 Identification/Chief Complaint Chief Complaint Fever and chills Source Source: Chart review, Patient History of Present Illness History of Present Illness 53 year old male presented ER today for evaluation of productive cough with bloody sputum, nausea vomiting, abdominal pain for about 3 days. Patient also complaint of trouble breathing. Patient denies chest pain. Patient is a smoker, has history COPD, he is not on any oxygen at home. Patient denies history of coronary artery disease. He does have fever and chill. Fever 102 on admit, WBC > 30K Past Medical History Cardiovascular: No pertinent hx Pulmonary: No pertinent hx GI: No pertinent hx Heme/Onc: No pertinent hx Hepatobiliary: No pertinent hx Psych: No pertinent hx Rheumatologic: No pertinent hx Infectious disease: No pertinent hx ENT: No pertinent hx Renal/: No pertinent hx Endocrine: No pertinent hx Dermatology: No pertinent hx Past Surgical History Past Surgical History: No pertinent history Family History Family History: High Cholestrol, Hypertension Social History Smoke: 1 pack per day ALCOHOL: rare Drugs: None Current Problem List Problem List Problems Medical Problems: (1) Asthma exacerbation in COPD Status: Acute (2) CAP (community acquired pneumonia) Status: Acute Current Medications Current Medications Current Medications Albuterol/ Ipratropium (Duoneb) 3 ml 1X ONCE NEB Last administered on at 16:28; Start 11/01/18 at 16:15; Stop 11/01/18 at 16:16; Status DC Acetaminophen (Tylenol) 1,000 mg 1X ONCE PO Last administered on 11/01/18at 16: 45; Start 11/01/18 at 16:15; Stop 11/01/18 at 16:16; Status DC Ibuprofen (Motrin) 800 mg 1X ONCE PO Last administered on 11/01/18at 16:45; Start 11/01/18 at 16:15; Stop 11/01/18 at 16:16; Status DC Ondansetron HCl (Zofran) 8 mg 1X ONCE IV Last administered on 11/01/18at 16:45 ; Start 11/01/18 at 16:15; Stop 11/01/18 at 16:16; Status DC Sodium Chloride 1,000 ml @ 1,000 mls/hr 1X ONCE IV Last administered on at 16:45; Start 11/01/18 at 16:15; Stop 11/01/18 at 17:14; Status DC Ceftriaxone Sodium (Rocephin) 1 gm 1X ONCE IVP Last administered on 11/01/18at 17:15; Start 11/01/18 at 17:15; Stop 11/01/18 at 17:16; Status DC Azithromycin 250 ml @ 250 mls/hr 1X ONCE IV Last administered on 11/01/18at 17 :15; Start 11/01/18 at 17:15; Stop 11/01/18 at 18:14; Status DC Sodium Chloride 1,000 ml @ 1,000 mls/hr 1X ONCE IV Last administered on at 17:15; Start 11/01/18 at 17:15; Stop 11/01/18 at 18:14; Status DC Potassium Chloride (Klor-Con) 40 meq 1X ONCE PO Last administered on at 18:45; Start 11/01/18 at 17:45; Stop 11/01/18 at 17:46; Status DC Ondansetron HCl (Zofran) 4 mg PRN Q8HRS PRN IV NAUSEA/VOMITING; Start 11/01/18 at 17:45; Stop 11/02/18 at 17:44 Morphine Sulfate (Morphine Sulfate) 2 mg PRN Q2HR PRN IV PAIN; Start 11/01/18 at 17:45; Stop 11/02/18 at 17:44 Sodium Chloride 1,000 ml @ 100 mls/hr Q10H IV Last administered on 11/01/18at 21:28; Start 11/01/18 at 17:34; Stop 11/02/18 at 17:33 Acetaminophen (Tylenol) 650 mg PRN Q4HRS PRN PO FEVER; Start 11/01/18 at 17:45 ; Stop 11/02/18 at 17:44 Albuterol/ Ipratropium (Duoneb) 3 ml RTQID NEB Last administered on 11/02/18at 07:15; Start 11/01/18 at 20:00; Stop 11/02/18 at 19:59 Methylprednisolone Sodium Succinate (SOLU-Medrol 125MG VIAL) 125 mg 1X ONCE IV Last administered on 11/01/18at 18:45; Start 11/01/18 at 17:45; Stop 11/01/18 at 17:46; Status DC Sodium Chloride 1,000 ml @ 1,000 mls/hr 1X ONCE IV Last administered on at 18:15; Start 11/01/18 at 18:15; Stop 11/01/18 at 19:14; Status DC Sodium Chloride 1,000 ml @ 1,000 mls/hr 1X ONCE IV Last administered on at 23:26; Start 11/01/18 at 18:30; Stop 11/01/18 at 19:29; Status DC Active Scripts Active Zithromax (Azithromycin) 250 Mg Tablet 1 Pkg PO UD Reported Proair Hfa Inhaler (Albuterol Sulfate) 8.5 Gm Hfa.aer.ad 1 Puff INH PRN Q6HRS PRN Ranitidine Hcl 150 Mg Capsule 150 Mg PO TID Robaxin (Methocarbamol) 500 Mg Tablet 1 Tab PO TID PRN PRN Zyrtec (Cetirizine Hcl) 10 Mg Tablet 10 Mg PO DAILYWSUP Montelukast Sodium Tablet (Montelukast Sodium) 10 Mg Tablet 10 Mg PO HS Allergies Allergies: Coded Allergies: tetracycline (Verified Allergy, Intermediate, Hives, 05/03/18) ROS General: YES: Chills, Night Sweats, Fatigue, Malaise, Appetite PSYCHOLOGICAL ROS: No: Anxiety, Behavioral Disorder, Concentration difficultie , Decreased libido, Depression, Disorientation, Hallucinations, Hostility, Irritablity, Memory difficulties, Mood Swings, Obsessive thoughts, Physical abuse, Sexual abuse, Sleep disturbances, Suicidal ideation, Other Eyes: No Blurry vision, No Decreased vision, No Double vision, No Dry eyes, No Excessive tearing, No Eye Pain, No Itchy Eyes, No Loss of vision, No Photophobia , No Scotomata, No Uses contacts, No Uses glasses, No Other HEENT: No: Heacaches, Visual Changes, Hearing change, Nasal congestion, Nasal discharge, Oral lesions, Sinus pain, Sore Throat, Epistaxis, Sneezing, Snoring, Tinnitus, Vertigo, Vocal changes, Other ALLERGY AND IMMUNOLOGY: No: Hives, Insect Bite Sensitivity, Itchy/Watery Eyes, Nasal Congestion, Post Nasal Drip, Seasonal Allergies, Other Hematological and Lymphatic: No: Bleeding Problems, Blood Clots, Blood Transfusions, Brusing, Night Sweats, Pallor, Swollen Lymph Nodes, Other ENDOCRINE: No: Breast Changes, Galactorrhea, Hair Pattern Changes, Hot Flashes , Malaise/lethargy, Mood Swings, Palpitations, Polydipsia/polyuria, Skin Changes , Temperature Intolerance, Unexpected Weight Changes, Other Breast: No New/Changing Breast Lumps, No Nipple changes, No Nipple discharge, No Other Respiratory: YES: Cough, Hemoptysis, Pleuritic Pain, Shortness of breath, SOB with excertion, Sputum Changes, Tachypnea, Wheezing; No: Orthopnea, Stridor, Other Cardiovascular: No Chest Pain, No Palpitations, No Orthopnea, No Paroxysmal Noc. Dyspnea, No Edema, No Lt Headedness, No Other Gastrointestinal: Yes Nausea; No Vomiting, No Abdominal Pain, No Diarrhea, No Constipation, No Melena, No Hematochezia, No Other Genitourinary: No Dysuria, No Frequency, No Incontinence, No Hematuria, No Retention, No Discharge, No Urgency, No Pain, No Flank Pain, No Other, No , No , No , No , No , No , No Musculoskeletal: No Gait Disturbance, No Joint Pain, No Joint Stiffness, No Joint Swelling, No Muscle Pain, No Muscular Weakness, No Pain In:, No Swelling In:, No Other Neurological: No Behavorial Changes, No Bowel/Bladder ControlChng, No Confusion , No Dizziness, No Gait Disturbance, No Headaches, No Impaired Coord/balance, No Memory Loss, No Numbness/Tingling, No Seizures, No Speech Problems, No Tremors, No Visual Changes, No Weakness, No Other Skin: No Dry Skin, No Eczema, No Hair Changes, No Lumps, No Mole Changes, No Mottling, No Nail Changes, No Pruritus, No Rash, No Skin Lesion Changes, No Other, No Acne Physical Exam General: Alert, Oriented X3, Cooperative, No acute distress HEENT: Atraumatic, PERRLA, EOMI, Mucous membr. moist/pink Lungs: Other (Right basilar rhonchi, scattered wheezes) Heart: S1S2, RRR, no gallops, no murmurs Abdomen: Normal bowel sounds, Soft, No tenderness, No hepatosplenomegaly, No masses Extremities: No clubbing, No cyanosis, No edema, Normal pulses, No tenderness/ swelling Skin: No rashes, No breakdown, No significant lesion Neuro: Normal gait, Normal speech, Strength at 5/5 X4 ext, Normal tone, Sensation intact, Cranial nerves 3-12 NL, Reflexes 2+ Psych/Mental Status: Mental status NL, Mood NL Vitals Vitals Vital Signs Date Time Temp Pulse Resp B/P (MAP) Pulse Ox O2 Delivery O2 Flow Rate FiO2 11/02/18 07:15 96 Room Air 11/02/18 07:00 97.7 63 18 106/62 (77) 97.7 Labs Labs Laboratory Tests Test 11/01/18 16:06 11/01/18 16:40 11/01/18 17:24 11/01/18 19:36 Influenza Type A Antigen Negative (NEGATIVE) Influenza Type B Antigen Negative (NEGATIVE) White Blood Count 34.0 x10^3/uL (4.0-11.0) Red Blood Count 4.84 x10^6/uL (4.30-5.70) Hemoglobin 11.0 g/dL (13.0-17.5) Hematocrit 34.8 % (39.0-53.0) Mean Corpuscular Volume 72 fL (79-100) Mean Corpuscular Hemoglobin 23 pg (25-35) Mean Corpuscular Hemoglobin Concent 32 g/dL (31-37) Red Cell Distribution Width 14.8 % (11.5-14.5) Platelet Count 230 x10^3/uL (140-400) Neutrophils (%) (Auto) 88 % (31-73) Lymphocytes (%) (Auto) 4 % (24-48) Monocytes (%) (Auto) 8 % (0-9) Eosinophils (%) (Auto) 0 % (0-3) Basophils (%) (Auto) 0 % (0-3) Neutrophils # (Auto) 29.8 x10^3uL (1.8-7.7) Lymphocytes # (Auto) 1.4 x10^3/uL (1.0-4.8) Monocytes # (Auto) 2.7 x10^3/uL (0.0-1.1) Eosinophils # (Auto) 0.0 x10^3/uL (0.0-0.7) Basophils # (Auto) 0.1 x10^3/uL (0.0-0.2) Segmented Neutrophils % 62 % (35-66) Band Neutrophils % 26 % (0-9) Lymphocytes % 5 % (24-48) Monocytes % 6 % (0-10) Metamyelocytes % 1 % (0-0) Toxic Vacuolation Slight Platelet Estimate Adequate (ADEQUATE) Polychromasia Slight Hypochromasia Mod Microcytosis Slight Target Cells Few Ovalocytes Few Prothrombin Time 17.1 SEC (11.7-14.0) Prothromb Time International Ratio 1.4 (0.8-1.1) Activated Partial Thromboplast Time 42 SEC (24-38) Sodium Level 137 mmol/L (136-145) Potassium Level 3.0 mmol/L (3.5-5.1) Chloride Level 98 mmol/L (98-107) Carbon Dioxide Level 25 mmol/L (21-32) Anion Gap 14 (6-14) Blood Urea Nitrogen 20 mg/dL (8-26) Creatinine 1.5 mg/dL (0.7-1.3) Estimated GFR (Cockcroft-Gault) 49.0 BUN/Creatinine Ratio 13 (6-20) Glucose Level 141 mg/dL (70-99) Lactic Acid Level 1.7 mmol/L (0.4-2.0) 1.7 mmol/L (0.4-2.0) Calcium Level 8.2 mg/dL (8.5-10.1) Total Bilirubin 1.9 mg/dL (0.2-1.0) Aspartate Amino Transf (AST/SGOT) 57 U/L (15-37) Alanine Aminotransferase (ALT/SGPT) 107 U/L (16-63) Alkaline Phosphatase 114 U/L (46-116) Creatine Kinase 168 U/L (39-308) Creatine Kinase MB (Mass) 0.5 ng/mL (0.0-3.6) Creatine Kinase MB Relative Index 0.3 % (0-4) Troponin I Quantitative < 0.017 ng/mL (0.000-0.055) Total Protein 7.1 g/dL (6.4-8.2) Albumin 3.3 g/dL (3.4-5.0) Albumin/Globulin Ratio 0.9 (1.0-1.7) Lipase 52 U/L (73-393) Urine Collection Type Unknown Urine Color [place] Urine Clarity Clear Urine pH 5.0 Urine Specific [place] 1.025 Urine Protein Negative mg/dL (NEG-TRACE) Urine Glucose (UA) Negative mg/dL (NEG) Urine Ketones (Stick) Trace mg/dL (NEG) Urine Blood Negative (NEG) Urine Nitrite Positive (NEG) Urine Bilirubin Moderate (NEG) Urine Urobilinogen Dipstick 1.0 mg/dL (0.2 mg/dL) Urine Leukocyte Esterase Small (NEG) Urine RBC 0 /HPF (0-2) Urine WBC 1-4 /HPF (0-4) Urine Bacteria Few /HPF (0-FEW) Urine Hyaline Casts Moderate /HPF Urine Mucus Marked /LPF Laboratory Tests Test 11/01/18 16:06 11/01/18 16:40 11/01/18 17:24 11/01/18 19:36 Influenza Type A Antigen Negative (NEGATIVE) Influenza Type B Antigen Negative (NEGATIVE) White Blood Count 34.0 x10^3/uL (4.0-11.0) Red Blood Count 4.84 x10^6/uL (4.30-5.70) Hemoglobin 11.0 g/dL (13.0-17.5) Hematocrit 34.8 % (39.0-53.0) Mean Corpuscular Volume 72 fL (79-100) Mean Corpuscular Hemoglobin 23 pg (25-35) Mean Corpuscular Hemoglobin Concent 32 g/dL (31-37) Red Cell Distribution Width 14.8 % (11.5-14.5) Platelet Count 230 x10^3/uL (140-400) Neutrophils (%) (Auto) 88 % (31-73) Lymphocytes (%) (Auto) 4 % (24-48) Monocytes (%) (Auto) 8 % (0-9) Eosinophils (%) (Auto) 0 % (0-3) Basophils (%) (Auto) 0 % (0-3) Neutrophils # (Auto) 29.8 x10^3uL (1.8-7.7) Lymphocytes # (Auto) 1.4 x10^3/uL (1.0-4.8) Monocytes # (Auto) 2.7 x10^3/uL (0.0-1.1) Eosinophils # (Auto) 0.0 x10^3/uL (0.0-0.7) Basophils # (Auto) 0.1 x10^3/uL (0.0-0.2) Segmented Neutrophils % 62 % (35-66) Band Neutrophils % 26 % (0-9) Lymphocytes % 5 % (24-48) Monocytes % 6 % (0-10) Metamyelocytes % 1 % (0-0) Toxic Vacuolation Slight Platelet Estimate Adequate (ADEQUATE) Polychromasia Slight Hypochromasia Mod Microcytosis Slight Target Cells Few Ovalocytes Few Prothrombin Time 17.1 SEC (11.7-14.0) Prothromb Time International Ratio 1.4 (0.8-1.1) Activated Partial Thromboplast Time 42 SEC (24-38) Sodium Level 137 mmol/L (136-145) Potassium Level 3.0 mmol/L (3.5-5.1) Chloride Level 98 mmol/L (98-107) Carbon Dioxide Level 25 mmol/L (21-32) Anion Gap 14 (6-14) Blood Urea Nitrogen 20 mg/dL (8-26) Creatinine 1.5 mg/dL (0.7-1.3) Estimated GFR (Cockcroft-Gault) 49.0 BUN/Creatinine Ratio 13 (6-20) Glucose Level 141 mg/dL (70-99) Lactic Acid Level 1.7 mmol/L (0.4-2.0) 1.7 mmol/L (0.4-2.0) Calcium Level 8.2 mg/dL (8.5-10.1) Total Bilirubin 1.9 mg/dL (0.2-1.0) Aspartate Amino Transf (AST/SGOT) 57 U/L (15-37) Alanine Aminotransferase (ALT/SGPT) 107 U/L (16-63) Alkaline Phosphatase 114 U/L (46-116) Creatine Kinase 168 U/L (39-308) Creatine Kinase MB (Mass) 0.5 ng/mL (0.0-3.6) Creatine Kinase MB Relative Index 0.3 % (0-4) Troponin I Quantitative < 0.017 ng/mL (0.000-0.055) Total Protein 7.1 g/dL (6.4-8.2) Albumin 3.3 g/dL (3.4-5.0) Albumin/Globulin Ratio 0.9 (1.0-1.7) Lipase 52 U/L (73-393) Urine Collection Type Unknown Urine Color [place] Urine Clarity Clear Urine pH 5.0 Urine Specific [place] 1.025 Urine Protein Negative mg/dL (NEG-TRACE) Urine Glucose (UA) Negative mg/dL (NEG) Urine Ketones (Stick) Trace mg/dL (NEG) Urine Blood Negative (NEG) Urine Nitrite Positive (NEG) Urine Bilirubin Moderate (NEG) Urine Urobilinogen Dipstick 1.0 mg/dL (0.2 mg/dL) Urine Leukocyte Esterase Small (NEG) Urine RBC 0 /HPF (0-2) Urine WBC 1-4 /HPF (0-4) Urine Bacteria Few /HPF (0-FEW) Urine Hyaline Casts Moderate /HPF Urine Mucus Marked /LPF Images Images CXR - Findings of bronchitis. CT Chest - 1. Consolidation in the right lower lobe may secondary to pneumonia. 2. Scattered groundglass opacities and nodules as described above. Differential diagnoses includes fungal infection or vasculitis. Follow-up CT chest in 3 months recommended. VTE Prophylaxis Ordered VTE Prophylaxis Devices: No VTE Pharmacological Prophylaxi: Yes Assessment/Plan Assessment/Plan A/P: Hemoptysis/Shortness of breath - bronchitis on CXR read. CT confirms this is pneumonia. Consult pulm, may need bronch. Transaminitis - likely shock 2/2 sepsis, though his INR also elevated, he likely has some underlying liver disease. Will monitor Severe sepsis - on empiric antibiotics, likely 2/2 pneumonia as source with end organ dysfunction in his liver. Very large leukocytosis, likely infectious Tobacco use - counseled on cessation Probably underlying chronic obstructive pulmonary disease, smoked for 20 years. Hypokalemia, present on admission - replaced Moderate protein-calorie malnutrition. Albumin is 2.7 - will get nutrition involved to accelerate recovery time. Hyperglycemia - will screen for DM, check A1c, in the meantime will give insulin coverage and poc glucose checks FEN - ADA diet PPX - lovenox FULL CODE Inpatient for pneumonia with severe sepsis, will be admitted at least 2 midnights. TOMEKA BAEZ MD Nov 02, 2018 08:16
[2018-11-02 09:44] LABS: BASO % 0 % (0-3); EOS % 0 % (0-3); HEMATOCRIT 32.8 % (39.0-53.0); HEMOGLOBIN 10.4 g/dL (13.0-17.5); LYMPH # 0.9 x10^3/uL (1.0-4.8); LYMPH % 3 % (24-48); MEAN CORPUSCULAR HEMOGLOBIN 23 pg (25-35); MEAN CORPUSCULAR HGB CONC 32 g/dL (31-37); MEAN CORPUSCULAR VOLUME 73 fL (79-100); MONO # 0.6 x10^3/uL (0.0-1.1); MONO % 2 % (0-9); NEUT # 31.2 x10^3uL (1.8-7.7); NEUT % 95 % (31-73); PLATELET COUNT 208 x10^3/uL (140-400); RED BLOOD COUNT 4.48 x10^6/uL (4.30-5.70); RED CELL DISTRIBUTION WIDTH 15.3 % (11.5-14.5); WHITE BLOOD COUNT 32.7 x10^3/uL (4.0-11.0)
[2018-11-02 09:55] LABS: ALBUMIN 2.7 g/dL (3.4-5.0); ALBUMIN/GLOBULIN RATIO 0.7 (1.0-1.7); CREATININE 1.3 mg/dL (0.7-1.3); GFR 57.7; TOTAL BILIRUBIN 0.5 mg/dL (0.2-1.0); TOTAL PROTEIN 6.5 g/dL (6.4-8.2)
[2018-11-02 10:04] LABS: POTASSIUM 2.9 mmol/L (3.5-5.1)
[2018-11-02] MEDS: IV NORMAL SALINE 1000ML BAG 1,000 ML IV SCH ×2 (10:23→13:34)
[2018-11-02] MEDS ORDERED: POTASSIUM CHLORIDE 20 MEQ TABLET.ER. PO ONE (10:45)
[2018-11-02] MEDS ORDERED: DEXTROSE 50% 25 GM / 50ML DISP.SYRIN. IV PRN (10:45)
--- NOTE | 2018-11-02 10:59 | CONS ---
DATE OF CONSULTATION: PULMONARY CONSULTATION ATTENDING PHYSICIAN: Dr. Us. REASON FOR CONSULTATION: Hemoptysis. HISTORY OF PRESENT ILLNESS: The patient is a 53-year-old who presents to the hospital with 3 day history of coughing up bloody sputum. He has no subjective fever. However, on admit, he had a fever of 102. The patient states that he has no shortness of breath. He denies any chest pains. Never had deep vein thrombosis or pulmonary embolism. The patient had some nausea and headache. No increased leg edema. No focal weakness. His chest x-ray did not reveal any definite infiltrate. PAST MEDICAL HISTORY: Significant for COPD. SOCIAL HISTORY: Smoker for 20 years and still smokes 4 cigarettes a day. SURGERIES: Cholecystectomy and testicular surgery. ALLERGIES: TETRACYCLINE. CURRENT MEDICATIONS: Reviewed as listed in the MRAD including one dose of antibiotics, azithromycin, Rocephin, and one dose of Solu-Medrol. SYSTEMS REVIEW: A 12-point system obtained. Pertinent positives discussed in my present illness, otherwise noncontributory. All systems that were negative were reviewed as well. FAMILY HISTORY: Noncontributory to lungs. PHYSICAL EXAMINATION: VITAL SIGNS: T-max of 102, blood pressure 116/65, pulse ox 94% on room air. NECK: Supple. LUNGS: Clear. No wheezing. CARDIOVASCULAR: Regular rate and rhythm. ABDOMEN: Soft, nontender, obese. EXTREMITIES: With no pitting edema. LABORATORY DATA: Labs are reviewed. Influenza screen is negative. Potassium was 2.9, sodium 144. INR 1.4. White cell count 32,000, hemoglobin 10.4 and platelets are 208. IMPRESSION: 1. Hemoptysis along with fever and the patient has been coughing up bloody sputum for the last 3 days. This is likely related to an infectious etiology and likely caused by acute bronchitis. However, would obtain a noncontrast CT chest to make sure there is no mass contributing to the patient's symptoms. Clinically less likely thromboembolic disease. 2. Marked leukocytosis are likely related to an infectious etiology. 3. History of tobacco use, probably underlying chronic obstructive pulmonary disease, smoked for 20 years. 4. Hypokalemia, present on admission. 5. Moderate protein-calorie malnutrition. Albumin is 2.7. RECOMMENDATIONS: 1. Continue with present antibiotics. 2. Bronchodilators, DuoNeb. 3. Noncontrast CT chest. 4. Monitor hemoptysis closely. If it does not improve, then may consider bronchoscopy. 5. Discussed with RN. 6. Smoking cessation counseling provided. OJ MAR MD DR: BO/peggy JOB#: [id number] / [id number]
[2018-11-02 11:00] VITALS: BP 118/62
--- NOTE | 2018-11-02 11:25 | RAD ---
PQRS Compliance statement: One or more of the following individualized dose reduction techniques were utilized for this examination: 1. Automated exposure control. 2. Adjustment of the mA and/or kV according to patient size. 3. Use of iterative reconstruction technique. Indication:Bloody SPUTUM TECHNIQUE: CT chest without IV contrast with multiplanar reformats. COMPARISON: 07/18/2014 FINDINGS: Heart is normal in size. No pericardial or pleural effusion. No enlarged axillary adenopathy. Enlarged mediastinal lymph nodes are seen, the largest measuring 1.7 x 1.4 cm. Calcified mediastinal lymph nodes likely stigmata of old healed than a metastatic disease. Evaluation of hilar lymphadenopathy is limited due to lack of IV contrast. Central airways are patent. Consolidation is seen in the right lower lobe with air bronchograms. 1 cm groundglass nodule in the right upper lobe (series 3 image 24). Ill-defined patchy opacity in the left upper lobe with surrounding groundglass opacity measuring 3.7 cm (series 3 image 21). 9 mm groundglass nodule in the superior segment left lower lobe (series 3 image 22). Visualized noncontrast sections through the liver, spleen, pancreas, adrenals and kidneys within normal limits. No suspicious bony lesion. IMPRESSION: 1. Consolidation in the right lower lobe may secondary to pneumonia. 2. Scattered groundglass opacities and nodules as described above. Differential diagnoses includes fungal infection or vasculitis. Follow-up CT chest in 3 months recommended. Electronically signed by: Usman Cooper DO (11/02/2018 11:22 AM) [facility]
[2018-11-02] MEDS: POTASSIUM CHLORIDE 10MEQ 100 ML IV SCH ×2 (11:34→12:46)
[2018-11-02] MEDS: FAMOTIDINE 20 MG TABLET. PO SCH ×2 (11:35→20:02)
[2018-11-02] MEDS: INSULIN LISPRO 300 UNITS/3 ML INSULN.PEN. SQ SCH ×2 (12:52→17:04)
--- NOTE | 2018-11-02 14:23 | NUR ---
SW following for discharge planning. Chart reviewed. Pt lives at home with significant other. No discharge recommendation or SW needs noted at this time. Will continue to assess needs.
[2018-11-02] MEDS ORDERED: ENOXAPARIN 40 MG/0.4 ML SYRINGE. SQ SCH (14:30)
[2018-11-02 15:00] VITALS: BP 125/70
[2018-11-02] MEDS ORDERED: cefTRIAXone IV Push 1 GM VIAL. IVP SCH (17:00)
[2018-11-02] MEDS ORDERED: CETIRIZINE HCL 10 MG TABLET. PO SCH (17:00)
[2018-11-02] MEDS ORDERED: AZITHROMYCIN 500 MG in IV NORMAL SALINE 250ML 250 ML IV SCH (17:30)
[2018-11-02 19:48] VITALS: BP 103/55
[2018-11-02] MEDS: LACTOBACILLUS RHAMNOSUS GG 1 CAPSULE. PO SCH (20:02)
[2018-11-02] MEDS ORDERED: ACETAMINOPHEN 325 MG TABLET. PO PRN (20:15)
[2018-11-02] MEDS: BENZONATATE 100 MG CAPSULE. PO PRN (20:24)
[2018-11-02] MEDS ORDERED: MONTELUKAST SODIUM 10 MG TABLET. PO SCH (21:00)
[2018-11-02] MEDS ORDERED: INSULIN GLARGINE 300 UNITS/3 ML INSULN.PEN. SQ SCH (21:00)
--- NOTE | 2018-11-02 22:32 | NUR ---
Patient agitated with radiation monitor and removed from self. After educating patient about monitor in an attempt to put back on, patient verbalized that he did not want it on and decided to refuse to monitor at this time. Will continue to monitor.
[2018-11-02 23:11] LABS: HEMOGLOBIN A1C 5.6 % (4.8-5.6)
[2018-11-02 23:33] VITALS: BP 119/62
[2018-11-03 03:06] VITALS: BP 104/53
[2018-11-03 07:00] VITALS: BP 139/85
[2018-11-03] MEDS: IPRATRPIUM/ALBUTEROL 0.5/2.5MG 3 ML NEBU. NEB SCH ×2 (07:59→11:30)
[2018-11-03] MEDS: INSULIN LISPRO 300 UNITS/3 ML INSULN.PEN. SQ SCH ×2 (08:00→12:00)
[2018-11-03] MEDS: BENZONATATE 100 MG CAPSULE. PO PRN (08:11)
[2018-11-03] MEDS: LACTOBACILLUS RHAMNOSUS GG 1 CAPSULE. PO SCH (08:11)
[2018-11-03] MEDS: FAMOTIDINE 20 MG TABLET. PO SCH (08:11)
--- NOTE | 2018-11-03 08:24 | PDOC ---
PROGRESS NOTES Chief Complaint Chief Complaint A/P: Hemoptysis/Shortness of breath - bronchitis on CXR read. CT confirms this is pneumonia. Consulted pulm, may need bronch. Transaminitis - likely shock 2/2 sepsis, though his INR also elevated, he likely has some underlying liver disease. Will monitor Severe sepsis - on empiric antibiotics, likely 2/2 pneumonia as source with end organ dysfunction in his liver. Very large leukocytosis, likely infectious etiology which could be Bordetella pertussis - azithromycin 500mg IV daily appropriate treatment, could go home on this or biaxin Tobacco use - counseled on cessation Probably underlying chronic obstructive pulmonary disease, smoked for 20 years. Hypokalemia, present on admission - replaced Moderate protein-calorie malnutrition. Albumin is 2.7 - will get nutrition involved to accelerate recovery time. Hyperglycemia - will screen for DM, check A1c, in the meantime will give insulin coverage and poc glucose checks FEN - ADA diet PPX - lovenox FULL CODE Inpatient for pneumonia with severe sepsis, will be admitted at least 2 midnights. History of Present Illness History of Present Illness 53 year old male presented ER for evaluation of productive cough with bloody sputum, nausea vomiting, abdominal pain for about 3 days. Patient also complaint of trouble breathing. Patient denies chest pain. Patient is a smoker, has history COPD, he is not on any oxygen at home. Patient denies history of coronary artery disease. He does have fever and chill. Fever 102 on admit, WBC > 30K Feeling better today. Agitated about his telemetry Plan: Can likely d/c on azithromycin if ok with ID. Vitals Vitals Vital Signs Date Time Temp Pulse Resp B/P (MAP) Pulse Ox O2 Delivery O2 Flow Rate FiO2 11/03/18 08:01 96 Room Air 11/03/18 03:06 97.5 99 18 104/53 (70) 97.5 Physical Exam General: Alert, Oriented X3, Cooperative, No acute distress Abdomen: Normal bowel sounds, Soft, No tenderness, No hepatosplenomegaly, No masses Extremities: No clubbing, No cyanosis, No edema, Normal pulses, No tenderness/ swelling Skin: No rashes, No breakdown, No significant lesion Labs LABS Laboratory Tests Test 11/02/18 09:28 11/02/18 12:14 11/02/18 17:02 11/02/18 20:04 White Blood Count 32.7 x10^3/uL (4.0-11.0) Red Blood Count 4.48 x10^6/uL (4.30-5.70) Hemoglobin 10.4 g/dL (13.0-17.5) Hematocrit 32.8 % (39.0-53.0) Mean Corpuscular Volume 73 fL (79-100) Mean Corpuscular Hemoglobin 23 pg (25-35) Mean Corpuscular Hemoglobin Concent 32 g/dL (31-37) Red Cell Distribution Width 15.3 % (11.5-14.5) Platelet Count 208 x10^3/uL (140-400) Neutrophils (%) (Auto) 95 % (31-73) Lymphocytes (%) (Auto) 3 % (24-48) Monocytes (%) (Auto) 2 % (0-9) Eosinophils (%) (Auto) 0 % (0-3) Basophils (%) (Auto) 0 % (0-3) Neutrophils # (Auto) 31.2 x10^3uL (1.8-7.7) Lymphocytes # (Auto) 0.9 x10^3/uL (1.0-4.8) Monocytes # (Auto) 0.6 x10^3/uL (0.0-1.1) Eosinophils # (Auto) 0.0 x10^3/uL (0.0-0.7) Basophils # (Auto) 0.0 x10^3/uL (0.0-0.2) Sodium Level 144 mmol/L (136-145) Potassium Level 2.9 mmol/L (3.5-5.1) Chloride Level 107 mmol/L (98-107) Carbon Dioxide Level 24 mmol/L (21-32) Anion Gap 13 (6-14) Blood Urea Nitrogen 21 mg/dL (8-26) Creatinine 1.3 mg/dL (0.7-1.3) Estimated GFR (Cockcroft-Gault) 57.7 BUN/Creatinine Ratio 16 (6-20) Glucose Level 265 mg/dL (70-99) Hemoglobin A1c 5.6 % (4.8-5.6) Calcium Level 8.0 mg/dL (8.5-10.1) Magnesium Level 2.2 mg/dL (1.8-2.4) Total Bilirubin 0.5 mg/dL (0.2-1.0) Aspartate Amino Transf (AST/SGOT) 29 U/L (15-37) Alanine Aminotransferase (ALT/SGPT) 81 U/L (16-63) Alkaline Phosphatase 114 U/L (46-116) Total Protein 6.5 g/dL (6.4-8.2) Albumin 2.7 g/dL (3.4-5.0) Albumin/Globulin Ratio 0.7 (1.0-1.7) Glucose (Fingerstick) 255 mg/dL (70-99) 143 mg/dL (70-99) 179 mg/dL (70-99) Test 11/03/18 08:11 Glucose (Fingerstick) 95 mg/dL (70-99) Assessment and Plan Assessmemt and Plan Problems Medical Problems: (1) Asthma exacerbation in COPD Status: Acute (2) CAP (community acquired pneumonia) Status: Acute Comment Review of Relevant I have reviewed the following items tereso (where applicable) has been applied. Labs Laboratory Tests Test 11/01/18 16:06 11/01/18 16:40 11/01/18 17:24 11/01/18 19:36 Influenza Type A Antigen Negative (NEGATIVE) Influenza Type B Antigen Negative (NEGATIVE) White Blood Count 34.0 x10^3/uL (4.0-11.0) Red Blood Count 4.84 x10^6/uL (4.30-5.70) Hemoglobin 11.0 g/dL (13.0-17.5) Hematocrit 34.8 % (39.0-53.0) Mean Corpuscular Volume 72 fL (79-100) Mean Corpuscular Hemoglobin 23 pg (25-35) Mean Corpuscular Hemoglobin Concent 32 g/dL (31-37) Red Cell Distribution Width 14.8 % (11.5-14.5) Platelet Count 230 x10^3/uL (140-400) Neutrophils (%) (Auto) 88 % (31-73) Lymphocytes (%) (Auto) 4 % (24-48) Monocytes (%) (Auto) 8 % (0-9) Eosinophils (%) (Auto) 0 % (0-3) Basophils (%) (Auto) 0 % (0-3) Neutrophils # (Auto) 29.8 x10^3uL (1.8-7.7) Lymphocytes # (Auto) 1.4 x10^3/uL (1.0-4.8) Monocytes # (Auto) 2.7 x10^3/uL (0.0-1.1) Eosinophils # (Auto) 0.0 x10^3/uL (0.0-0.7) Basophils # (Auto) 0.1 x10^3/uL (0.0-0.2) Segmented Neutrophils % 62 % (35-66) Band Neutrophils % 26 % (0-9) Lymphocytes % 5 % (24-48) Monocytes % 6 % (0-10) Metamyelocytes % 1 % (0-0) Toxic Vacuolation Slight Platelet Estimate Adequate (ADEQUATE) Polychromasia Slight Hypochromasia Mod Microcytosis Slight Target Cells Few Ovalocytes Few Prothrombin Time 17.1 SEC (11.7-14.0) Prothromb Time International Ratio 1.4 (0.8-1.1) Activated Partial Thromboplast Time 42 SEC (24-38) Sodium Level 137 mmol/L (136-145) Potassium Level 3.0 mmol/L (3.5-5.1) Chloride Level 98 mmol/L (98-107) Carbon Dioxide Level 25 mmol/L (21-32) Anion Gap 14 (6-14) Blood Urea Nitrogen 20 mg/dL (8-26) Creatinine 1.5 mg/dL (0.7-1.3) Estimated GFR (Cockcroft-Gault) 49.0 BUN/Creatinine Ratio 13 (6-20) Glucose Level 141 mg/dL (70-99) Lactic Acid Level 1.7 mmol/L (0.4-2.0) 1.7 mmol/L (0.4-2.0) Calcium Level 8.2 mg/dL (8.5-10.1) Total Bilirubin 1.9 mg/dL (0.2-1.0) Aspartate Amino Transf (AST/SGOT) 57 U/L (15-37) Alanine Aminotransferase (ALT/SGPT) 107 U/L (16-63) Alkaline Phosphatase 114 U/L (46-116) Creatine Kinase 168 U/L (39-308) Creatine Kinase MB (Mass) 0.5 ng/mL (0.0-3.6) Creatine Kinase MB Relative Index 0.3 % (0-4) Troponin I Quantitative < 0.017 ng/mL (0.000-0.055) Total Protein 7.1 g/dL (6.4-8.2) Albumin 3.3 g/dL (3.4-5.0) Albumin/Globulin Ratio 0.9 (1.0-1.7) Lipase 52 U/L (73-393) Urine Collection Type Unknown Urine Color [place] Urine Clarity Clear Urine pH 5.0 Urine Specific [place] 1.025 Urine Protein Negative mg/dL (NEG-TRACE) Urine Glucose (UA) Negative mg/dL (NEG) Urine Ketones (Stick) Trace mg/dL (NEG) Urine Blood Negative (NEG) Urine Nitrite Positive (NEG) Urine Bilirubin Moderate (NEG) Urine Urobilinogen Dipstick 1.0 mg/dL (0.2 mg/dL) Urine Leukocyte Esterase Small (NEG) Urine RBC 0 /HPF (0-2) Urine WBC 1-4 /HPF (0-4) Urine Bacteria Few /HPF (0-FEW) Urine Hyaline Casts Moderate /HPF Urine Mucus Marked /LPF Test 11/02/18 09:28 11/02/18 12:14 11/02/18 17:02 11/02/18 20:04 White Blood Count 32.7 x10^3/uL (4.0-11.0) Red Blood Count 4.48 x10^6/uL (4.30-5.70) Hemoglobin 10.4 g/dL (13.0-17.5) Hematocrit 32.8 % (39.0-53.0) Mean Corpuscular Volume 73 fL (79-100) Mean Corpuscular Hemoglobin 23 pg (25-35) Mean Corpuscular Hemoglobin Concent 32 g/dL (31-37) Red Cell Distribution Width 15.3 % (11.5-14.5) Platelet Count 208 x10^3/uL (140-400) Neutrophils (%) (Auto) 95 % (31-73) Lymphocytes (%) (Auto) 3 % (24-48) Monocytes (%) (Auto) 2 % (0-9) Eosinophils (%) (Auto) 0 % (0-3) Basophils (%) (Auto) 0 % (0-3) Neutrophils # (Auto) 31.2 x10^3uL (1.8-7.7) Lymphocytes # (Auto) 0.9 x10^3/uL (1.0-4.8) Monocytes # (Auto) 0.6 x10^3/uL (0.0-1.1) Eosinophils # (Auto) 0.0 x10^3/uL (0.0-0.7) Basophils # (Auto) 0.0 x10^3/uL (0.0-0.2) Sodium Level 144 mmol/L (136-145) Potassium Level 2.9 mmol/L (3.5-5.1) Chloride Level 107 mmol/L (98-107) Carbon Dioxide Level 24 mmol/L (21-32) Anion Gap 13 (6-14) Blood Urea Nitrogen 21 mg/dL (8-26) Creatinine 1.3 mg/dL (0.7-1.3) Estimated GFR (Cockcroft-Gault) 57.7 BUN/Creatinine Ratio 16 (6-20) Glucose Level 265 mg/dL (70-99) Hemoglobin A1c 5.6 % (4.8-5.6) Calcium Level 8.0 mg/dL (8.5-10.1) Magnesium Level 2.2 mg/dL (1.8-2.4) Total Bilirubin 0.5 mg/dL (0.2-1.0) Aspartate Amino Transf (AST/SGOT) 29 U/L (15-37) Alanine Aminotransferase (ALT/SGPT) 81 U/L (16-63) Alkaline Phosphatase 114 U/L (46-116) Total Protein 6.5 g/dL (6.4-8.2) Albumin 2.7 g/dL (3.4-5.0) Albumin/Globulin Ratio 0.7 (1.0-1.7) Glucose (Fingerstick) 255 mg/dL (70-99) 143 mg/dL (70-99) 179 mg/dL (70-99) Test 11/03/18 08:11 Glucose (Fingerstick) 95 mg/dL (70-99) Laboratory Tests Test 11/02/18 09:28 11/02/18 12:14 11/02/18 17:02 11/02/18 20:04 White Blood Count 32.7 x10^3/uL (4.0-11.0) Red Blood Count 4.48 x10^6/uL (4.30-5.70) Hemoglobin 10.4 g/dL (13.0-17.5) Hematocrit 32.8 % (39.0-53.0) Mean Corpuscular Volume 73 fL (79-100) Mean Corpuscular Hemoglobin 23 pg (25-35) Mean Corpuscular Hemoglobin Concent 32 g/dL (31-37) Red Cell Distribution Width 15.3 % (11.5-14.5) Platelet Count 208 x10^3/uL (140-400) Neutrophils (%) (Auto) 95 % (31-73) Lymphocytes (%) (Auto) 3 % (24-48) Monocytes (%) (Auto) 2 % (0-9) Eosinophils (%) (Auto) 0 % (0-3) Basophils (%) (Auto) 0 % (0-3) Neutrophils # (Auto) 31.2 x10^3uL (1.8-7.7) Lymphocytes # (Auto) 0.9 x10^3/uL (1.0-4.8) Monocytes # (Auto) 0.6 x10^3/uL (0.0-1.1) Eosinophils # (Auto) 0.0 x10^3/uL (0.0-0.7) Basophils # (Auto) 0.0 x10^3/uL (0.0-0.2) Sodium Level 144 mmol/L (136-145) Potassium Level 2.9 mmol/L (3.5-5.1) Chloride Level 107 mmol/L (98-107) Carbon Dioxide Level 24 mmol/L (21-32) Anion Gap 13 (6-14) Blood Urea Nitrogen 21 mg/dL (8-26) Creatinine 1.3 mg/dL (0.7-1.3) Estimated GFR (Cockcroft-Gault) 57.7 BUN/Creatinine Ratio 16 (6-20) Glucose Level 265 mg/dL (70-99) Hemoglobin A1c 5.6 % (4.8-5.6) Calcium Level 8.0 mg/dL (8.5-10.1) Magnesium Level 2.2 mg/dL (1.8-2.4) Total Bilirubin 0.5 mg/dL (0.2-1.0) Aspartate Amino Transf (AST/SGOT) 29 U/L (15-37) Alanine Aminotransferase (ALT/SGPT) 81 U/L (16-63) Alkaline Phosphatase 114 U/L (46-116) Total Protein 6.5 g/dL (6.4-8.2) Albumin 2.7 g/dL (3.4-5.0) Albumin/Globulin Ratio 0.7 (1.0-1.7) Glucose (Fingerstick) 255 mg/dL (70-99) 143 mg/dL (70-99) 179 mg/dL (70-99) Test 11/03/18 08:11 Glucose (Fingerstick) 95 mg/dL (70-99) Microbiology 11/01/18 Blood Culture - Preliminary, Resulted NO GROWTH AFTER 1 DAY Medications Current Medications Albuterol/ Ipratropium (Duoneb) 3 ml 1X ONCE NEB Last administered on 16:28; Start 11/01/18 at 16:15; Stop 11/01/18 at 16:16; Status DC Acetaminophen (Tylenol) 1,000 mg 1X ONCE PO Last administered on 11/01/18 16: 45; Start 11/01/18 at 16:15; Stop 11/01/18 at 16:16; Status DC Ibuprofen (Motrin) 800 mg 1X ONCE PO Last administered on 11/01/18 16:45; Start 11/01/18 at 16:15; Stop 11/01/18 at 16:16; Status DC Ondansetron HCl (Zofran) 8 mg 1X ONCE IV Last administered on 11/01/18 16:45 ; Start 11/01/18 at 16:15; Stop 11/01/18 at 16:16; Status DC Sodium Chloride 1,000 ml @ 1,000 mls/hr 1X ONCE IV Last administered on at 16:45; Start 11/01/18 at 16:15; Stop 11/01/18 at 17:14; Status DC Ceftriaxone Sodium (Rocephin) 1 gm 1X ONCE IVP Last administered on 11/01/18at 17:15; Start 11/01/18 at 17:15; Stop 11/01/18 at 17:16; Status DC Azithromycin 250 ml @ 250 mls/hr 1X ONCE IV Last administered on 11/01/18at 17 :15; Start 11/01/18 at 17:15; Stop 11/01/18 at 18:14; Status DC Sodium Chloride 1,000 ml @ 1,000 mls/hr 1X ONCE IV Last administered on at 17:15; Start 11/01/18 at 17:15; Stop 11/01/18 at 18:14; Status DC Potassium Chloride (Klor-Con) 40 meq 1X ONCE PO Last administered on at 18:45; Start 11/01/18 at 17:45; Stop 11/01/18 at 17:46; Status DC Ondansetron HCl (Zofran) 4 mg PRN Q8HRS PRN IV NAUSEA/VOMITING; Start 11/01/18 at 17:45; Stop 11/02/18 at 17:44; Status DC Morphine Sulfate (Morphine Sulfate) 2 mg PRN Q2HR PRN IV PAIN; Start 11/01/18 at 17:45; Stop 11/02/18 at 17:44; Status DC Sodium Chloride 1,000 ml @ 100 mls/hr Q10H IV Last administered on 11/02/18at 10:23; Start 11/01/18 at 17:34; Stop 11/02/18 at 17:33; Status DC Acetaminophen (Tylenol) 650 mg PRN Q4HRS PRN PO FEVER; Start 11/01/18 at 17:45 ; Stop 11/02/18 at 17:44; Status DC Albuterol/ Ipratropium (Duoneb) 3 ml RTQID NEB Last administered on 11/02/18at 15:56; Start 11/01/18 at 20:00; Stop 11/02/18 at 16:23; Status DC Methylprednisolone Sodium Succinate (SOLU-Medrol 125MG VIAL) 125 mg 1X ONCE IV Last administered on 11/01/18at 18:45; Start 11/01/18 at 17:45; Stop 11/01/18 at 17:46; Status DC Sodium Chloride 1,000 ml @ 1,000 mls/hr 1X ONCE IV Last administered on at 18:15; Start 11/01/18 at 18:15; Stop 11/01/18 at 19:14; Status DC Sodium Chloride 1,000 ml @ 1,000 mls/hr 1X ONCE IV Last administered on at 23:26; Start 11/01/18 at 18:30; Stop 11/01/18 at 19:29; Status DC Ceftriaxone Sodium (Rocephin) 1 gm Q24H IVP Last administered on 11/02/18at 16: 58; Start 11/02/18 at 17:00 Lactobacillus Rhamnosus (Culturelle) 1 cap BID PO Last administered on at 08:11; Start 11/02/18 at 21:00 Potassium Chloride/Water 100 ml @ 100 mls/hr Q1H IV Last administered on at 12:46; Start 11/02/18 at 10:45; Stop 11/02/18 at 12:44; Status DC Potassium Chloride (Klor-Con) 40 meq 1X ONCE PO Last administered on at 11:35; Start 11/02/18 at 10:45; Stop 11/02/18 at 10:50; Status DC Cetirizine HCl (ZyrTEC) 10 mg DAILYWSUP PO Last administered on 11/02/18at 16:57 ; Start 11/02/18 at 17:00 Montelukast Sodium (Singulair) 10 mg QHS PO Last administered on 11/02/18at 20: 02; Start 11/02/18 at 21:00 Famotidine (Pepcid) 20 mg BID PO Last administered on 11/03/18at 08:11; Start at 11:00 Insulin Human Lispro (HumaLOG) 0-7 UNITS TIDWMEALS SQ Last administered on 11/02at 12:52; Start 11/02/18 at 12:00 Dextrose (Dextrose 50%-Water Syringe) 12.5 gm PRN Q15MIN PRN IV SEE COMMENTS; Start 11/02/18 at 10:45 Insulin Glargine (Lantus) 8 units QHS SQ ; Start 11/02/18 at 21:00 Azithromycin 500 mg/Sodium Chloride 250 ml @ 250 mls/hr Q24H IV Last administered on 11/02/18at 16:58; Start 11/02/18 at 17:30 Enoxaparin Sodium (Lovenox 40mg Syringe) 40 mg Q24H SQ ; Start 11/02/18 at 14:30 Albuterol/ Ipratropium (Duoneb) 3 ml RTQID NEB Last administered on 11/03/18at 07:59; Start 11/02/18 at 20:00 Acetaminophen (Tylenol) 650 mg PRN Q4HRS PRN PO PAIN Last administered on at 20:24; Start 11/02/18 at 20:15 Benzonatate (Tessalon Perle) 200 mg PRN Q8HRS PRN PO COUGH Last administered on 11/03/18at 08:11; Start 11/02/18 at 20:15 Active Scripts Active Zithromax (Azithromycin) 250 Mg Tablet 1 Pkg PO UD Reported Proair Hfa Inhaler (Albuterol Sulfate) 8.5 Gm Hfa.aer.ad 1 Puff INH PRN Q6HRS PRN Ranitidine Hcl 150 Mg Capsule 150 Mg PO TID Robaxin (Methocarbamol) 500 Mg Tablet 1 Tab PO TID PRN PRN Zyrtec (Cetirizine Hcl) 10 Mg Tablet 10 Mg PO DAILYWSUP Montelukast Sodium Tablet (Montelukast Sodium) 10 Mg Tablet 10 Mg PO HS Vitals/I & O Vital Sign - Last 24 Hours 11/02/18 11/02/18 11/02/18 11/02/18 11:00 11:06 15:00 15:57 Temp 98.0 98.0 98.0 98.0 Pulse 105 105 Resp 18 18 B/P (MAP) 118/62 (80) 125/70 (88) Pulse Ox 95 98 96 98 O2 Delivery Room Air Room Air Room Air Room Air 11/02/18 11/02/18 11/02/18 11/02/18 19:48 20:07 20:17 23:33 Temp 98.0 98.4 98.0 98.4 Pulse 106 105 Resp 20 18 B/P (MAP) 103/55 (71) 119/62 (81) Pulse Ox 98 97 O2 Delivery Room Air Room Air Room Air Room Air 11/03/18 11/03/18 03:06 08:01 Temp 97.5 97.5 Pulse 99 Resp 18 B/P (MAP) 104/53 (70) Pulse Ox 95 96 O2 Delivery Room Air Room Air Intake and Output 11/02/18 11/02/18 11/03/18 14:59 22:59 06:59 Intake Total 360 ml Balance [address] Chest - 1. Consolidation in the right lower lobe may secondary to pneumonia. 2. Scattered groundglass opacities and nodules as described above. Differential diagnoses includes fungal infection or vasculitis. Follow-up CT chest in 3 months recommended. TOMEKA BAEZ MD Nov 03, 2018 08:24
[2018-11-03] MEDS ORDERED: AZIT1PAC PO (10:39)
[2018-11-03] MEDS ORDERED: CEFU500T46 PO (10:39)
--- NOTE | 2018-11-03 10:44 | PDOC3 ---
Discharge Summary Visit Information Date of Admission: Nov 01, 2018 Date of Discharge: Nov 03, 2018 Admitting Diagnosis: Hemoptysis Final Diagnosis Problems Medical Problems: (1) Asthma exacerbation in COPD Status: Acute (2) CAP (community acquired pneumonia) Status: Acute Brief Hospital Course Allergies Allergies Coded Allergies Type Severity Reaction Last Updated Verified tetracycline Allergy Intermediate Hives 05/03/18 Yes Vital Signs Vital Signs Date Time Temp Pulse Resp B/P (MAP) Pulse Ox O2 Delivery O2 Flow Rate FiO2 11/03/18 08:01 96 Room Air 11/03/18 07:00 97.8 105 18 139/85 (103) 97.8 Lab Results Laboratory Tests Test 11/01/18 16:06 11/01/18 16:40 11/01/18 17:24 11/01/18 19:36 Influenza Type A Antigen Negative (NEGATIVE) Influenza Type B Antigen Negative (NEGATIVE) White Blood Count 34.0 x10^3/uL (4.0-11.0) Red Blood Count 4.84 x10^6/uL (4.30-5.70) Hemoglobin 11.0 g/dL (13.0-17.5) Hematocrit 34.8 % (39.0-53.0) Mean Corpuscular Volume 72 fL (79-100) Mean Corpuscular Hemoglobin 23 pg (25-35) Mean Corpuscular Hemoglobin Concent 32 g/dL (31-37) Red Cell Distribution Width 14.8 % (11.5-14.5) Platelet Count 230 x10^3/uL (140-400) Neutrophils (%) (Auto) 88 % (31-73) Lymphocytes (%) (Auto) 4 % (24-48) Monocytes (%) (Auto) 8 % (0-9) Eosinophils (%) (Auto) 0 % (0-3) Basophils (%) (Auto) 0 % (0-3) Neutrophils # (Auto) 29.8 x10^3uL (1.8-7.7) Lymphocytes # (Auto) 1.4 x10^3/uL (1.0-4.8) Monocytes # (Auto) 2.7 x10^3/uL (0.0-1.1) Eosinophils # (Auto) 0.0 x10^3/uL (0.0-0.7) Basophils # (Auto) 0.1 x10^3/uL (0.0-0.2) Segmented Neutrophils % 62 % (35-66) Band Neutrophils % 26 % (0-9) Lymphocytes % 5 % (24-48) Monocytes % 6 % (0-10) Metamyelocytes % 1 % (0-0) Toxic Vacuolation Slight Platelet Estimate Adequate (ADEQUATE) Polychromasia Slight Hypochromasia Mod Microcytosis Slight Target Cells Few Ovalocytes Few Prothrombin Time 17.1 SEC (11.7-14.0) Prothromb Time International Ratio 1.4 (0.8-1.1) Activated Partial Thromboplast Time 42 SEC (24-38) Sodium Level 137 mmol/L (136-145) Potassium Level 3.0 mmol/L (3.5-5.1) Chloride Level 98 mmol/L (98-107) Carbon Dioxide Level 25 mmol/L (21-32) Anion Gap 14 (6-14) Blood Urea Nitrogen 20 mg/dL (8-26) Creatinine 1.5 mg/dL (0.7-1.3) Estimated GFR (Cockcroft-Gault) 49.0 BUN/Creatinine Ratio 13 (6-20) Glucose Level 141 mg/dL (70-99) Lactic Acid Level 1.7 mmol/L (0.4-2.0) 1.7 mmol/L (0.4-2.0) Calcium Level 8.2 mg/dL (8.5-10.1) Total Bilirubin 1.9 mg/dL (0.2-1.0) Aspartate Amino Transf (AST/SGOT) 57 U/L (15-37) Alanine Aminotransferase (ALT/SGPT) 107 U/L (16-63) Alkaline Phosphatase 114 U/L (46-116) Creatine Kinase 168 U/L (39-308) Creatine Kinase MB (Mass) 0.5 ng/mL (0.0-3.6) Creatine Kinase MB Relative Index 0.3 % (0-4) Troponin I Quantitative < 0.017 ng/mL (0.000-0.055) Total Protein 7.1 g/dL (6.4-8.2) Albumin 3.3 g/dL (3.4-5.0) Albumin/Globulin Ratio 0.9 (1.0-1.7) Lipase 52 U/L (73-393) Urine Collection Type Unknown Urine Color [place] Urine Clarity Clear Urine pH 5.0 Urine Specific [place] 1.025 Urine Protein Negative mg/dL (NEG-TRACE) Urine Glucose (UA) Negative mg/dL (NEG) Urine Ketones (Stick) Trace mg/dL (NEG) Urine Blood Negative (NEG) Urine Nitrite Positive (NEG) Urine Bilirubin Moderate (NEG) Urine Urobilinogen Dipstick 1.0 mg/dL (0.2 mg/dL) Urine Leukocyte Esterase Small (NEG) Urine RBC 0 /HPF (0-2) Urine WBC 1-4 /HPF (0-4) Urine Bacteria Few /HPF (0-FEW) Urine Hyaline Casts Moderate /HPF Urine Mucus Marked /LPF Test 11/02/18 09:28 11/02/18 12:14 11/02/18 17:02 11/02/18 20:04 White Blood Count 32.7 x10^3/uL (4.0-11.0) Red Blood Count 4.48 x10^6/uL (4.30-5.70) Hemoglobin 10.4 g/dL (13.0-17.5) Hematocrit 32.8 % (39.0-53.0) Mean Corpuscular Volume 73 fL (79-100) Mean Corpuscular Hemoglobin 23 pg (25-35) Mean Corpuscular Hemoglobin Concent 32 g/dL (31-37) Red Cell Distribution Width 15.3 % (11.5-14.5) Platelet Count 208 x10^3/uL (140-400) Neutrophils (%) (Auto) 95 % (31-73) Lymphocytes (%) (Auto) 3 % (24-48) Monocytes (%) (Auto) 2 % (0-9) Eosinophils (%) (Auto) 0 % (0-3) Basophils (%) (Auto) 0 % (0-3) Neutrophils # (Auto) 31.2 x10^3uL (1.8-7.7) Lymphocytes # (Auto) 0.9 x10^3/uL (1.0-4.8) Monocytes # (Auto) 0.6 x10^3/uL (0.0-1.1) Eosinophils # (Auto) 0.0 x10^3/uL (0.0-0.7) Basophils # (Auto) 0.0 x10^3/uL (0.0-0.2) Sodium Level 144 mmol/L (136-145) Potassium Level 2.9 mmol/L (3.5-5.1) Chloride Level 107 mmol/L (98-107) Carbon Dioxide Level 24 mmol/L (21-32) Anion Gap 13 (6-14) Blood Urea Nitrogen 21 mg/dL (8-26) Creatinine 1.3 mg/dL (0.7-1.3) Estimated GFR (Cockcroft-Gault) 57.7 BUN/Creatinine Ratio 16 (6-20) Glucose Level 265 mg/dL (70-99) Hemoglobin A1c 5.6 % (4.8-5.6) Calcium Level 8.0 mg/dL (8.5-10.1) Magnesium Level 2.2 mg/dL (1.8-2.4) Total Bilirubin 0.5 mg/dL (0.2-1.0) Aspartate Amino Transf (AST/SGOT) 29 U/L (15-37) Alanine Aminotransferase (ALT/SGPT) 81 U/L (16-63) Alkaline Phosphatase 114 U/L (46-116) Total Protein 6.5 g/dL (6.4-8.2) Albumin 2.7 g/dL (3.4-5.0) Albumin/Globulin Ratio 0.7 (1.0-1.7) Glucose (Fingerstick) 255 mg/dL (70-99) 143 mg/dL (70-99) 179 mg/dL (70-99) Test 11/03/18 08:11 Glucose (Fingerstick) 95 mg/dL (70-99) Laboratory Tests Test 11/02/18 12:14 11/02/18 17:02 11/02/18 20:04 11/03/18 08:11 Glucose (Fingerstick) 255 mg/dL (70-99) 143 mg/dL (70-99) 179 mg/dL (70-99) 95 mg/dL (70-99) Brief Hospital Course 53 year old male presented ER for evaluation of productive cough with bloody sputum, nausea vomiting, abdominal pain for about 3 days. Patient also complaint of trouble breathing. Patient denies chest pain. Patient is a smoker, has history COPD, he is not on any oxygen at home. Patient denies history of coronary artery disease. He does have fever and chill. Fever 102 on admit, WBC > 30K Seen by pulmonology adn ID, underwent CT chest showing lobar pneumonia RLL and possible VIDAL, his sx imply pertussis, was already on z-colleen, will treat with ceftin and azithromycin Feeling better today. Agitated about his telemetry Plan: Can likely d/c on azithromycin if ok with ID. Greater than 30 minutes spent on discharge A/P: Hemoptysis/Shortness of breath - bronchitis on CXR read. CT confirms this is pneumonia. Consulted pulm, may need bronch. Transaminitis - likely shock 2/2 sepsis, though his INR also elevated, he likely has some underlying liver disease. Will monitor Severe sepsis - on empiric antibiotics, likely 2/2 pneumonia as source with end organ dysfunction in his liver. Very large leukocytosis, likely infectious etiology which could be Bordetella pertussis - azithromycin 500mg IV daily appropriate treatment, could go home on this or biaxin Tobacco use - counseled on cessation Probably underlying chronic obstructive pulmonary disease, smoked for 20 years. Hypokalemia, present on admission - replaced Moderate protein-calorie malnutrition. Albumin is 2.7 - will get nutrition involved to accelerate recovery time. Hyperglycemia - will screen for DM, check A1c, in the meantime will give insulin coverage and poc glucose checks Discharge Information Condition at Discharge: Improved Follow Up: Weeks (2) Disposition/Orders: D/C to Home Scheduled Azithromycin (Zithromax Packet) 1 Gm Packet, 1 PACKET PO ONCE for Pertussis for 5 Days, #1 2 tabs day 1 followed by 1 tab daily for 4 days, disp #6 tabs Prescribed by: TOMEKA BAEZ MD on 11/03/18 1039 Cefuroxime Axetil (Cefuroxime) 500 Mg Tablet, 1 TAB PO BID for 5, #10 Prescribed by: TOMEKA BAEZ MD on 11/03/18 1039 Cetirizine Hcl (Zyrtec) 10 Mg Tablet, 10 MG PO DAILYWSUP for allergy, (Reported) Entered as Reported by: ELODIA IRWIN on 12/08/15 1721 Last Taken: Unknown Dose on 10/31/18 Last Action: Continued on 11/02/18 1040 by TOMEKA BAEZ MD Montelukast Sodium (Montelukast Sodium Tablet) 10 Mg Tablet, 10 MG PO HS for FOR ASTHMA, #30 Ref 0 (Reported) Entered as Reported by: ELODIA IRWIN on 12/08/151720 Last Taken: Unknown Dose on 10/31/18 Last Action: Converted on 11/02/18 1040 by TOMEKA BAEZ MD Ranitidine Hcl (Ranitidine Hcl) 150 Mg Capsule, 150 MG PO TID for indigestion, ( Reported) Entered as Reported by: ELODIA IRWIN on 12/08/151721 Last Taken: Unknown Dose on 11/01/18 Last Action: Converted on 11/02/18 1040 by TOMEKA BAEZ MD Scheduled PRN Albuterol Sulfate (Proair Hfa Inhaler) 8.5 Gm Hfa.aer.ad, 1 PUFF INH PRN Q6HRS PRN for SHORTNESS OF BREATH, Ref 0 (Reported) Entered as Reported by: CHUNG ALMAGUER on 11/01/182017 Last Taken: Unknown Dose on 11/01/18 Last Action: New Order on 11/01/182017 by CHUNG ALMAGUER Methocarbamol (Robaxin) 500 Mg Tablet, 1 TAB PO TID PRN PRN for PAIN, #90 ( Reported) Entered as Reported by: ELODIA IRWIN on 12/08/151720 Last Taken: Unknown Dose on 11/01/18 Last Action: HELD on 11/02/181038 by TOMEKA BAEZ MD Discontinued Medications Azithromycin (Zithromax) 250 Mg Tablet, 1 PKG PO UD for infection, #1 Prescribed by: BERNADETTE RAMÍREZ APRN on 06/30/18 0994 Last Action: HELD on 11/02/181038 by TOMEKA BAEZ MD Omeprazole (Prilosec) 20 Mg Capsule.dr, 20 MG PO, (Reported) Entered as Reported by: OBIE ARREOLA on 08/03/13 0747 Last Action: Discontinued on 11/01/182017 by TOMEKA LONGORIA MD Nov 03, 2018 10:44
--- NOTE | 2018-11-03 10:59 | PDOC ---
Infectious Disease Note Vital Sign Vital Signs Vital Signs Date Time Temp Pulse Resp B/P (MAP) Pulse Ox O2 Delivery O2 Flow Rate FiO2 11/03/18 08:01 96 Room Air 11/03/18 07:00 97.8 105 18 139/85 (103) 97.8 Labs Lab Laboratory Tests Test 11/02/18 12:14 11/02/18 17:02 11/02/18 20:04 11/03/18 08:11 Glucose (Fingerstick) 255 mg/dL (70-99) 143 mg/dL (70-99) 179 mg/dL (70-99) 95 mg/dL (70-99) Micro Microbiology 11/01/18 Blood Culture - Preliminary, Resulted NO GROWTH AFTER 1 DAY Objective Assessment CAP Leukocytosis COPD Obesity Plan Plan of Care ok to d/c home will need f/u wbc and cxr/ct d/w ANOTNINA Messer MD Nov 03, 2018 10:59
[2018-11-03 11:00] VITALS: BP 140/83
[2018-11-03 11:37] LABS: BASO % 0 % (0-3); EOS % 0 % (0-3); HEMATOCRIT 30.2 % (39.0-53.0); HEMOGLOBIN 9.7 g/dL (13.0-17.5); LYMPH # 2.2 x10^3/uL (1.0-4.8); LYMPH % 8 % (24-48); MEAN CORPUSCULAR HEMOGLOBIN 23 pg (25-35); MEAN CORPUSCULAR HGB CONC 32 g/dL (31-37); MEAN CORPUSCULAR VOLUME 73 fL (79-100); MONO # 1.3 x10^3/uL (0.0-1.1); MONO % 5 % (0-9); NEUT # 24.1 x10^3uL (1.8-7.7); NEUT % 87 % (31-73); PLATELET COUNT 247 x10^3/uL (140-400); RED BLOOD COUNT 4.14 x10^6/uL (4.30-5.70); RED CELL DISTRIBUTION WIDTH 15.3 % (11.5-14.5); WHITE BLOOD COUNT 27.6 x10^3/uL (4.0-11.0)
--- NOTE | 2018-11-03 11:44 | NUR ---
Received discharge orders from Dr Porter today. Also spoke to Dr Lee and he agrees with discharge. Dr Aragon would like the pt to stay another night however pt is wanting to be discharged to home. I reviewed with him the importance of following up with his primary for repeat labs and chest x-ray. He verbalized understanding and has an appointment with Dr Flores on November 14, 2018. I also gave him contact numbers for Dr Aragon and Dr Lee.
--- NOTE | 2018-11-03 11:50 | PDOC ---
PULMONARY PROGRESS NOTES Subjective HEMOPTYSIS RESOLVED PT INSIST IN GOING HOME Vitals Vital Signs Date Time Temp Pulse Resp B/P (MAP) Pulse Ox O2 Delivery O2 Flow Rate FiO2 11/03/18 11:31 Room Air 11/03/18 08:01 96 11/03/18 07:00 97.8 105 18 139/85 (103) 97.8 General: Alert, No acute distress Lungs: Clear Cardiovascular: S1 Abdomen: Soft Neuro Exam: Alert Extremities: No Edema Skin: Warm Labs Laboratory Tests Test 11/01/18 16:06 11/01/18 16:40 11/01/18 17:24 11/01/18 19:36 Influenza Type A Antigen Negative (NEGATIVE) Influenza Type B Antigen Negative (NEGATIVE) White Blood Count 34.0 x10^3/uL (4.0-11.0) Red Blood Count 4.84 x10^6/uL (4.30-5.70) Hemoglobin 11.0 g/dL (13.0-17.5) Hematocrit 34.8 % (39.0-53.0) Mean Corpuscular Volume 72 fL (79-100) Mean Corpuscular Hemoglobin 23 pg (25-35) Mean Corpuscular Hemoglobin Concent 32 g/dL (31-37) Red Cell Distribution Width 14.8 % (11.5-14.5) Platelet Count 230 x10^3/uL (140-400) Neutrophils (%) (Auto) 88 % (31-73) Lymphocytes (%) (Auto) 4 % (24-48) Monocytes (%) (Auto) 8 % (0-9) Eosinophils (%) (Auto) 0 % (0-3) Basophils (%) (Auto) 0 % (0-3) Neutrophils # (Auto) 29.8 x10^3uL (1.8-7.7) Lymphocytes # (Auto) 1.4 x10^3/uL (1.0-4.8) Monocytes # (Auto) 2.7 x10^3/uL (0.0-1.1) Eosinophils # (Auto) 0.0 x10^3/uL (0.0-0.7) Basophils # (Auto) 0.1 x10^3/uL (0.0-0.2) Segmented Neutrophils % 62 % (35-66) Band Neutrophils % 26 % (0-9) Lymphocytes % 5 % (24-48) Monocytes % 6 % (0-10) Metamyelocytes % 1 % (0-0) Toxic Vacuolation Slight Platelet Estimate Adequate (ADEQUATE) Polychromasia Slight Hypochromasia Mod Microcytosis Slight Target Cells Few Ovalocytes Few Prothrombin Time 17.1 SEC (11.7-14.0) Prothromb Time International Ratio 1.4 (0.8-1.1) Activated Partial Thromboplast Time 42 SEC (24-38) Sodium Level 137 mmol/L (136-145) Potassium Level 3.0 mmol/L (3.5-5.1) Chloride Level 98 mmol/L (98-107) Carbon Dioxide Level 25 mmol/L (21-32) Anion Gap 14 (6-14) Blood Urea Nitrogen 20 mg/dL (8-26) Creatinine 1.5 mg/dL (0.7-1.3) Estimated GFR (Cockcroft-Gault) 49.0 BUN/Creatinine Ratio 13 (6-20) Glucose Level 141 mg/dL (70-99) Lactic Acid Level 1.7 mmol/L (0.4-2.0) 1.7 mmol/L (0.4-2.0) Calcium Level 8.2 mg/dL (8.5-10.1) Total Bilirubin 1.9 mg/dL (0.2-1.0) Aspartate Amino Transf (AST/SGOT) 57 U/L (15-37) Alanine Aminotransferase (ALT/SGPT) 107 U/L (16-63) Alkaline Phosphatase 114 U/L (46-116) Creatine Kinase 168 U/L (39-308) Creatine Kinase MB (Mass) 0.5 ng/mL (0.0-3.6) Creatine Kinase MB Relative Index 0.3 % (0-4) Troponin I Quantitative < 0.017 ng/mL (0.000-0.055) Total Protein 7.1 g/dL (6.4-8.2) Albumin 3.3 g/dL (3.4-5.0) Albumin/Globulin Ratio 0.9 (1.0-1.7) Lipase 52 U/L (73-393) Urine Collection Type Unknown Urine Color [place] Urine Clarity Clear Urine pH 5.0 Urine Specific [place] 1.025 Urine Protein Negative mg/dL (NEG-TRACE) Urine Glucose (UA) Negative mg/dL (NEG) Urine Ketones (Stick) Trace mg/dL (NEG) Urine Blood Negative (NEG) Urine Nitrite Positive (NEG) Urine Bilirubin Moderate (NEG) Urine Urobilinogen Dipstick 1.0 mg/dL (0.2 mg/dL) Urine Leukocyte Esterase Small (NEG) Urine RBC 0 /HPF (0-2) Urine WBC 1-4 /HPF (0-4) Urine Bacteria Few /HPF (0-FEW) Urine Hyaline Casts Moderate /HPF Urine Mucus Marked /LPF Test 11/02/18 09:28 11/02/18 12:14 11/02/18 17:02 11/02/18 20:04 White Blood Count 32.7 x10^3/uL (4.0-11.0) Red Blood Count 4.48 x10^6/uL (4.30-5.70) Hemoglobin 10.4 g/dL (13.0-17.5) Hematocrit 32.8 % (39.0-53.0) Mean Corpuscular Volume 73 fL (79-100) Mean Corpuscular Hemoglobin 23 pg (25-35) Mean Corpuscular Hemoglobin Concent 32 g/dL (31-37) Red Cell Distribution Width 15.3 % (11.5-14.5) Platelet Count 208 x10^3/uL (140-400) Neutrophils (%) (Auto) 95 % (31-73) Lymphocytes (%) (Auto) 3 % (24-48) Monocytes (%) (Auto) 2 % (0-9) Eosinophils (%) (Auto) 0 % (0-3) Basophils (%) (Auto) 0 % (0-3) Neutrophils # (Auto) 31.2 x10^3uL (1.8-7.7) Lymphocytes # (Auto) 0.9 x10^3/uL (1.0-4.8) Monocytes # (Auto) 0.6 x10^3/uL (0.0-1.1) Eosinophils # (Auto) 0.0 x10^3/uL (0.0-0.7) Basophils # (Auto) 0.0 x10^3/uL (0.0-0.2) Sodium Level 144 mmol/L (136-145) Potassium Level 2.9 mmol/L (3.5-5.1) Chloride Level 107 mmol/L (98-107) Carbon Dioxide Level 24 mmol/L (21-32) Anion Gap 13 (6-14) Blood Urea Nitrogen 21 mg/dL (8-26) Creatinine 1.3 mg/dL (0.7-1.3) Estimated GFR (Cockcroft-Gault) 57.7 BUN/Creatinine Ratio 16 (6-20) Glucose Level 265 mg/dL (70-99) Hemoglobin A1c 5.6 % (4.8-5.6) Calcium Level 8.0 mg/dL (8.5-10.1) Magnesium Level 2.2 mg/dL (1.8-2.4) Total Bilirubin 0.5 mg/dL (0.2-1.0) Aspartate Amino Transf (AST/SGOT) 29 U/L (15-37) Alanine Aminotransferase (ALT/SGPT) 81 U/L (16-63) Alkaline Phosphatase 114 U/L (46-116) Total Protein 6.5 g/dL (6.4-8.2) Albumin 2.7 g/dL (3.4-5.0) Albumin/Globulin Ratio 0.7 (1.0-1.7) Glucose (Fingerstick) 255 mg/dL (70-99) 143 mg/dL (70-99) 179 mg/dL (70-99) Test 11/03/18 08:11 Glucose (Fingerstick) 95 mg/dL (70-99) Laboratory Tests Test 11/02/18 12:14 11/02/18 17:02 11/02/18 20:04 11/03/18 08:11 Glucose (Fingerstick) 255 mg/dL (70-99) 143 mg/dL (70-99) 179 mg/dL (70-99) 95 mg/dL (70-99) Medications Active Scripts Medications Dose Route/Sig Max Daily Dose Days Date Category Dose Instructions Zithromax Packet (Azithromycin) 1 Gm Packet 1 Packet PO ONCE 5 11/03/18 Rx 2 tabs day 1 followed by 1 tab daily for 4 days, disp #6 tabs Cefuroxime (Cefuroxime Axetil) 500 Mg Tablet 1 Tab PO BID 11/03/18 Rx Proair Hfa Inhaler (Albuterol Sulfate) 8.5 Gm Hfa.aer.ad 1 Puff INH PRN Q6HRS PRN 11/01/18 Reported Ranitidine Hcl 150 Mg Capsule 150 Mg PO TID 12/08/15 Reported Robaxin (Methocarbamol) 500 Mg Tablet 1 Tab PO TID PRN PRN 12/08/15 Reported Zyrtec (Cetirizine Hcl) 10 Mg Tablet 10 Mg PO DAILYWSUP 12/08/15 Reported Montelukast Sodium Tablet (Montelukast Sodium) 10 Mg Tablet 10 Mg PO HS 12/08/[address] chest VIDAL/ RLL pneumonia Impression . 1. Hemoptysis along with fever and the patient has been coughing up bloody sputum for the last [address] chest with no mass. Confirmed VIDAL/ RLL pneumonia 2. Marked leukocytosis are likely related to an infectious etiology.? steroids ( received one dose in ER) 3. History of tobacco use, probably underlying chronic obstructive pulmonary disease, smoked for 20 years. 4. Hypokalemia, present on admission. 5. Moderate protein-calorie malnutrition. Albumin is 2.7. Plan . 1. Continue with present antibiotics./ ID consulted 2. Bronchodilators, DuoNeb. 3. Noncontrast CT chest reviewed.. 4. resolved hemoptysis 5. Discussed with RN./ DR BAEZ. I would prefer to keep patient one more day to see improvement in wbc. He insist in leaving. Abx per ID/ Rec F/U ct chest with PCP 6. Smoking cessation counseling provided. OJ MAR MD Nov 03, 2018 11:50
[2018-11-03 12:02] LABS: ALBUMIN 2.5 g/dL (3.4-5.0); ALBUMIN/GLOBULIN RATIO 0.7 (1.0-1.7); CALCIUM 8.2 mg/dL (8.5-10.1); GFR 78.2; POTASSIUM 3.6 mmol/L (3.5-5.1); TOTAL BILIRUBIN 0.3 mg/dL (0.2-1.0); TOTAL PROTEIN 6.2 g/dL (6.4-8.2)
--- NOTE | 2018-11-03 13:00 | NUR ---
Pt discharged to home with family. Discussed discharge instructions such as diet, activity, medications and follow up. Pt verbalized understanding and importance of follow up.
--- NOTE | 2018-11-03 22:42 | CONS ---
DATE OF CONSULTATION: 11/03/2018 REQUESTING PHYSICIAN: Dr. Porter. REASON FOR CONSULTATION: Pneumonia and leukocytosis. HISTORY OF PRESENT ILLNESS: This is a 53-year-old gentleman who came in with 3-day history of cough with coughing up some blood. He was noted to have 102 fever when he hit the ER. The patient was admitted, diagnosed with pneumonia. The patient was started on Rocephin, azithromycin and now the white count is still 32,000, hence consultation. The patient is feeling much better. He would rather go home, he says. The patient denies any vomiting, denies any headache, visual symptoms. Denies any chest pain, abdominal pain, urinary symptoms. PAST MEDICAL HISTORY: Positive for suspected COPD, has had cholecystectomy and testicular surgery done in the past. SOCIAL HISTORY: Negative for alcohol use or drug use. The patient does smoke. The patient's last antibiotic use was a month or two ago for "sinusitis" with azithromycin. REVIEW OF SYSTEMS: As per HPI, all other systems reviewed are negative. CURRENT MEDICATIONS: Reviewed. PHYSICAL EXAMINATION: GENERAL: Alert, oriented gentleman, not in any distress. VITAL SIGNS: Stable. The patient is afebrile. HEENT: NAD. NECK: Supple, no JVP, no lymphadenopathy. LUNGS: Clear. HEART: S1, S2 regular. ABDOMEN: Benign. EXTREMITIES: No edema or cyanosis. SKIN: Unremarkable. NEUROLOGIC: The patient is neurologically intact. LABORATORY DATA: White count is 32,000. BUN and creatinine is normal. Lactic acid was normal. Chest x-ray and CT reviewed. The patient's CT is showing consolidation of the right lower lobe. IMPRESSION: 1. Community-acquired pneumonia. 2. Leukocytosis, partially complicated along with pneumonia with one dose of methylprednisolone the patient received. 3. Suspected chronic obstructive pulmonary disease. 4. Fever and leukocytosis. RECOMMENDATIONS: The patient can be discharged on cefuroxime or Omnicef. The patient does need a followup WBC next week and the patient needs probably follow up either chest x-ray or CT in about 4 weeks. Thank you very much, Dr. Porter, for giving me the opportunity to participate in this patient's care. ANTONINA LEE MD DR: SAMANTHA/peggy JOB#: [id number] / [id number]
== END 2018-11-03 13:00 | disposition home or self-care (01) | DRG 871 ==
LOC: ER 15:12 → 6 SOUTH 17:33
PROVIDERS: ADMIT Internal Medicine; ATTEND Internal Medicine
DX: A41.9 Sepsis, unspecified organism (principal); J18.9 Pneumonia, unspecified organism; R65.21 Severe sepsis with septic shock; J18.1 Lobar pneumonia, unspecified organism; J44.0 Chronic obstructive pulmonary disease with (acute) lower respiratory infection; E44.0 Moderate protein-calorie malnutrition; J45.901 Unspecified asthma with (acute) exacerbation; R04.2 Hemoptysis; E87.6 Hypokalemia; J20.9 Acute bronchitis, unspecified; F12.90 Cannabis use, unspecified, uncomplicated; E66.9 Obesity, unspecified; I10 Essential (primary) hypertension; Z90.49 Acquired absence of other specified parts of digestive tract; F17.210 Nicotine dependence, cigarettes, uncomplicated; Z82.49 Family history of ischemic heart disease and other diseases of the circulatory system; Z68.37 Body mass index [BMI] 37.0-37.9, adult
CPT/HCPCS: 36415; 71045; 71250; 80053; 81001; 82553; 82962; 83036; 83605; 83690; 83735; 84484; 85007; 85025; 85610; 85730; 87040; 87070; 87086; 87205; 87804; 93005; 94640; 96361; 96365; 96366; 96375; 99406; J0456; J0696; J1815; J2405; J2930; J3480; J7030; J7050; J7620; 99285-25

== ENCOUNTER 2019-04-30 20:45 | Emergency (ER) | payer OTHER ==
[~2019-04-30] VITALS: Ht 175.3 cm; Wt 113.4 kg
[~2019-04-30 20:45] MED LIST changes: +ALBU2.5V8 INH; +AZIT1PAC PO; +CEFU500T46 PO; +MONT10TA49 PO; -MONT10TA9 PO
[2019-04-30 21:14] VITALS: BP 140/80
--- NOTE | 2019-04-30 21:36 | PHYS DOC ---
Past Medical History Past Medical History: Hypertension Additional Past Medical Histor: Upper Respiratory Infection (BESSIE MARTÍNEZ APRN) Past Surgical History: Cholecystectomy Additional Past Surgical Histo: R testicular surgery (BESSIE MARTÍNEZ APRN) Alcohol Use: Occasionally Drug Use: Marijuana (BESSIE MARTÍNEZ APRN) Adult General Chief Complaint Chief Complaint: LOWER EXTREMITY SWELLING HPI HPI Patient is a 54 year old male that presents to the ER stating that he's had left foot pain has been ongoing for couple months. The patient states his pain level is 8 out of 10 in severity and states it has been excruciating when he walks over the last several months. He states he been try to tough it out been no longer can. Denies trauma. (BESSIE MARTÍNEZ APRN) Review of Systems Review of Systems Constitutional: Denies fever or chills [] Eyes: Denies change in visual acuity, redness, or eye pain [] HENT: Denies nasal congestion or sore throat [] Respiratory: Denies cough or shortness of breath [] Cardiovascular: No additional information not addressed in HPI [] GI: Denies abdominal pain, nausea, vomiting, bloody stools or diarrhea [] : Denies dysuria or hematuria [] Musculoskeletal: Reports L foot pain. Integument: Denies rash or skin lesions [] Neurologic: Denies headache, focal weakness or sensory changes [] Endocrine: Denies polyuria or polydipsia [] Complete systems were reviewed and found to be within normal limits, except as documented in this note. (BESSIE MARTÍNEZ APRN) Current Medications Current Medications Current Medications Medications (Trade) Dose Ordered Sig/Job Start Time Stop Time Status Last Admin Dose Admin Morphine Sulfate (Morphine Sulfate) 8 mg 1X ONCE 04/30/19 22:00 04/30/19 22:01 DC 04/30/19 21:54 8 MG (BESSIE ONEAL DO) Allergies Allergies Allergies Coded Allergies Type Severity Reaction Last Updated Verified tetracycline Allergy Intermediate Hives 05/03/18 Yes (BESSIE ONEAL DO) Physical Exam Physical Exam Constitutional: Well developed, well nourished, no acute distress, non-toxic appearance. [] HENT: Normocephalic, atraumatic, bilateral external ears normal, oropharynx moist, no oral exudates, nose normal. [] Eyes: PERRLA, EOMI, conjunctiva normal, no discharge. [] Neck: Normal range of motion, no tenderness, supple, no stridor. [] Cardiovascular:Heart rate regular rhythm, no murmur [] Lungs & Thorax: Bilateral breath sounds clear to auscultation [] Abdomen: Bowel sounds normal, soft, no tenderness, no masses, no pulsatile masses. [] Skin: Warm, dry, no erythema, no rash. [] Back: No tenderness, no CVA tenderness. [] Extremities: Tenderness and edema to L foot going up posterior ankle. -handy test. Neurologic: Alert and oriented X 3, normal motor function, normal sensory function, no focal deficits noted. [] Psychologic: Affect normal, judgement normal, mood normal. [] (BESSIE MARTÍNEZ APRN) Current Patient Data Vital Signs Vital Signs Date Time Temp Pulse Resp B/P (MAP) Pulse Ox O2 Delivery O2 Flow Rate FiO2 04/30/19 21:54 14 98 04/30/19 21:14 98.7 107 140/80 (100) Room Air 98.7 (BESSEI ONEAL DO) EKG EKG [] (BESSIE MARTÍNEZ APRN) Radiology/Procedures Radiology/Procedures XRAY interpreted by Dr. ONEAL No obvious acute findings.[] (BESSIE MARTÍNEZ APRN) Course & Med Decision Making Course & Med Decision Making Pertinent Labs and Imaging studies reviewed. (See chart for details) Will give meds and get imaging. Imaging is unremarkable. Will place in Post-Op shoe and have follow up with primary care doctor and ortho. (BESSIE MARTÍNEZ APRN) Dragon Disclaimer Dragon Disclaimer This electronic medical record was generated, in whole or in part, using a voice recognition dictation system. (BESSIE MARTÍNEZ APRN) Splinting Splinting : Location: Left foot Pre-Made Type: Post op shoe Pre-Proc Neuro Vasc Exam: normal Post-Proc Neuro Vasc Exam: normal, unchanged from pre-exam (BESSIE ONEAL DO) Departure Departure Impression: Primary Impression: Left foot pain Disposition: 01 HOME, SELF-CARE Condition: STABLE Referrals: AMADA BROWN MD (PCP) FROYLAN BUTCHER MD Additional Instructions: Thank you for visiting [facility]. We appreciate you trusting us with your care. If any additional problems come up don't hesitate to return to visit us. Please follow up with your primary care provider so they can plan additional care if needed and know about the problem that you had. If symptoms worsen come back to the Emergency Department. Any concerning symptoms that start such as chest pain, shortness of air, weakness or numbness on one side of the body, running high fevers or any other concerning symptoms return to the ER. Please follow up with primary care and ortho. Scripts Naproxen (NAPROXEN) 500 Mg Tablet 1 TAB PO BID for 30 Days, #60 TAB Prov: BESSIE MARTÍNEZ APRN 04/30/19 Attending Signature Attending Signature I have reviewed the PA/PALLIATIVE CARE COORDINATOR's note and plan of care. I was available for consultation as needed during the patient's visit in the emergency department. I agree with the clinical impression, plan, and disposition. (BESSIE ONEAL DO) BESSIE MARTÍNEZ APRN Apr 30, 2019 21:36 BESSIE ONEAL DO May 01, 2019 04:35
[2019-04-30] MEDS ORDERED: MORPHINE SULFATE 4 MG/ML VIAL. IM ONE (22:00)
[2019-04-30] MEDS ORDERED: NAPR-514 PO (22:40)
--- NOTE | 2019-05-01 08:17 | RAD ---
LEFT FOOT AP LATERAL OBLIQUE Clinical Indication: Chronic edema, pain to left foot. Comparison: None. Findings: There is no acute fracture or dislocation. The bony alignment is normal. Mineralization is normal. No bony erosion. Joint spaces are maintained. Bipartite medial sesamoid. There are tiny calcaneal bone spurs. No soft tissue swelling is identified radiographically. No radiopaque foreign body is seen. IMPRESSION: No acute bone abnormality. Electronically signed by: Toño Tan MD (05/01/2019 8:14 AM) [id number]
== END 2019-04-30 23:25 | disposition home or self-care (01) ==
LOC: ER 20:45
DX: M79.672 Pain in left foot (principal); I10 Essential (primary) hypertension; Z88.1 Allergy status to other antibiotic agents
CPT/HCPCS: 73630; 96372; 99284; J2270

== ENCOUNTER 2019-08-03 14:03 | Emergency (ER) | payer OTHER ==
[~2019-08-03] VITALS: Ht 175.3 cm; Wt 111.1 kg
[~2019-08-03 14:03] MED LIST changes: +NAPR-514 PO
--- NOTE | 2019-08-03 15:16 | PHYS DOC ---
Past Medical History Past Medical History: Hypertension, Other Additional Past Medical Histor: Upper Respiratory Infection,CHRONIC NECK PAIN Past Surgical History: Cholecystectomy, Other Additional Past Surgical Histo: R testicular surgery Alcohol Use: Occasionally Drug Use: Marijuana Adult General Chief Complaint Chief Complaint: SYNCOPE HPI HPI Patient is a 54 year old male patient with history of asthma who presents with complaining of passing out and dizziness and hand numbness. Patient states he has had this problem for a long time since 2013 that getting worse gradually. Patient states he gets episodes of syncope once or twice a month with the last episode happened 2 nights ago and is getting tired of having this episode and wanted to do was going on with him. Patient states he has constant dizziness for years and gets episodes of bilateral hand numbness that lasted for few hours to a few days intermittently. Patient states he had CT scan of his head and waiting for his insurance to up with him for MRI of the brain but decided to come to ER today for evaluation. Patient denies a smoking cigarettes, using drugs except for marijuana or drinking alcohol. Review of Systems Review of Systems Constitutional: Denies fever or chills [] Eyes: Denies change in visual acuity, redness, or eye pain [] HENT: Denies nasal congestion or sore throat [] Respiratory: Denies cough or shortness of breath [] Cardiovascular: No additional information not addressed in HPI [] GI: Denies abdominal pain, nausea, vomiting, bloody stools or diarrhea [] : Denies dysuria or hematuria [] Musculoskeletal: Denies back pain or joint pain [] Integument: Denies rash or skin lesions [] Neurologic: Denies headache, focal weakness, reports dizziness, syncope and sensory changes [] Endocrine: Denies polyuria or polydipsia [] All other systems were reviewed and found to be within normal limits, except as documented in this note. Allergies Allergies Allergies Coded Allergies Type Severity Reaction Last Updated Verified tetracycline Allergy Intermediate Hives 05/03/18 Yes Physical Exam Physical Exam Constitutional: Well developed, well nourished, no acute distress, non-toxic appearance. [] HENT: Normocephalic, atraumatic, bilateral external ears normal, oropharynx moist, no oral exudates, nose normal. [] Eyes: PERRLA, EOMI, conjunctiva normal, no discharge. [] Neck: Normal range of motion, no tenderness, supple, no stridor. [] Cardiovascular:Heart rate regular rhythm, no murmur [] Lungs & Thorax: Bilateral breath sounds clear to auscultation [] Abdomen: Bowel sounds normal, soft, no tenderness, no masses, no pulsatile masses. [] Skin: Warm, dry, no erythema, no rash. [] Back: No tenderness, no CVA tenderness. [] Extremities: No tenderness, no cyanosis, no clubbing, ROM intact, no edema. [] Neurologic: Alert and oriented X 3, normal motor function, normal sensory function, no focal deficits noted. [] Psychologic: Affect anxious, judgement normal, mood normal. [] Current Patient Data Vital Signs Vital Signs Date Time Temp Pulse Resp B/P (MAP) Pulse Ox O2 Delivery O2 Flow Rate FiO2 08/03/19 16:49 89 17 149/83 (105) 95 Room Air 08/03/19 14:26 98.8 98.8 Lab Values Laboratory Tests Test 08/03/19 15:17 08/03/19 16:30 White Blood Count 7.3 x10^3/uL (4.0-11.0) Red Blood Count 5.41 x10^6/uL (4.30-5.70) Hemoglobin 12.6 g/dL (13.0-17.5) L Hematocrit 39.7 % (39.0-53.0) Mean Corpuscular Volume 73 fL (79-100) L Mean Corpuscular Hemoglobin 23 pg (25-35) L Mean Corpuscular Hemoglobin Concent 32 g/dL (31-37) Red Cell Distribution Width 15.0 % (11.5-14.5) H Platelet Count 275 x10^3/uL (140-400) Neutrophils (%) (Auto) 60 % (31-73) Lymphocytes (%) (Auto) 26 % (24-48) Monocytes (%) (Auto) 12 % (0-9) H Eosinophils (%) (Auto) 2 % (0-3) Basophils (%) (Auto) 1 % (0-3) Neutrophils # (Auto) 4.4 x10^3/uL (1.8-7.7) Lymphocytes # (Auto) 1.9 x10^3/uL (1.0-4.8) Monocytes # (Auto) 0.8 x10^3/uL (0.0-1.1) Eosinophils # (Auto) 0.1 x10^3/uL (0.0-0.7) Basophils # (Auto) 0.1 x10^3/uL (0.0-0.2) Sodium Level 145 mmol/L (136-145) Potassium Level 3.6 mmol/L (3.5-5.1) Chloride Level 106 mmol/L (98-107) Carbon Dioxide Level 29 mmol/L (21-32) Anion Gap 10 (6-14) Blood Urea Nitrogen 20 mg/dL (8-26) Creatinine 1.0 mg/dL (0.7-1.3) Estimated GFR (Cockcroft-Gault) 77.9 BUN/Creatinine Ratio 20 (6-20) Glucose Level 103 mg/dL (70-99) H Calcium Level 8.5 mg/dL (8.5-10.1) Magnesium Level 1.8 mg/dL (1.8-2.4) Total Bilirubin 0.2 mg/dL (0.2-1.0) Aspartate Amino Transferase (AST) 21 U/L (15-37) Alanine Aminotransferase (ALT) 27 U/L (16-63) Alkaline Phosphatase 102 U/L (46-116) Troponin I Quantitative < 0.017 ng/mL (0.000-0.055) Total Protein 6.9 g/dL (6.4-8.2) Albumin 3.2 g/dL (3.4-5.0) L Albumin/Globulin Ratio 0.9 (1.0-1.7) L Urine Opiates Screen Neg (NEG) Urine Methadone Screen Neg (NEG) Urine Barbiturates Neg (NEG) Urine Phencyclidine Screen Neg (NEG) Urine Amphetamine/Methamphetamine Pos (NEG) Urine Benzodiazepines Screen Neg (NEG) Urine Cocaine Screen Neg (NEG) Urine Cannabinoids Screen Pos (NEG) Urine Ethyl Alcohol Neg (NEG) Laboratory Tests 08/03/19 15:17 Laboratory Tests 08/03/19 15:17 EKG EKG EKG interpreted by me. EKG at 1515 showed normal sinus rhythm at rate of 92, left atrial abnormality, normal OH and QT interval, no acute ST and T-wave elevation. Radiology/Procedures Radiology/Procedures [][facility] [address] [place] [address] IMAGING REPORT Signed PATIENT: BESSIE ZAPATA AACCOUNT: [id number] : 1965 LOCATION: ER AGE: 54 SEX: M EXAM STATUS: REG ER ORD. PHYSICIAN: JOCELYNE ROSS MD REASON: syncope/ pt states having trouble breathing and blacking out. PROCEDURE: PORTABLE CHEST 1V EXAM: CHEST 1 VIEW History: Syncope COMPARISON: 11/01/2018 TECHNIQUE: Single portable radiograph of the chest FINDINGS: The cardiac silhouette is unremarkable. The lungs are clear bilaterally. The costophrenic sulci are clear and well demarcated. Small calcified granuloma identified in the right upper lobe of the lung unchanged. IMPRESSION: No radiographic evidence of an acute cardiopulmonary process. Electronically signed by: Yogesh Wilks MD (08/03/2019 3:49 PM) [id number] DICTATED and SIGNED BY: YOGESH WILKS MD DATE: 08/03/19 1549 [facility] [address] [place] [address] IMAGING REPORT Signed PATIENT: BESSIE ZAPATA AACCOUNT: [id number] : 1965 LOCATION: ER AGE: 54 SEX: M EXAM STATUS: REG ER ORD. PHYSICIAN: JOCELYNE ROSS MD REASON: syncope PROCEDURE: CT HEAD WO CONTRAST Exam: CT head INDICATION: Syncope TECHNIQUE: Sequential axial images through the head were obtained without the administration of IV contrast. Comparisons: None FINDINGS: No focal parenchymal lesion or hemorrhage is identified. There is no midline shift or sulcal effacement. No acute vascular territory infarction is identified. Monae-white distinction is preserved. The ventricular system is within normal limits without compression hydrocephalus. The basal cisterns are well maintained. The visualized portions of the paranasal sinuses and mastoid air cells are well-pneumatized. No acute fractures. IMPRESSION: No acute intracranial abnormality. Exposure: One or more of the following in the visualized dose reduction techniques were utilized for this examination: 1. Automated exposure control 2. Adjustment of the MA and/or KV according to patient size Use of iterative of reconstructive technique Electronically signed by: Sherry Maxwell MD (08/03/2019 4:10 PM) [id number] DICTATED and SIGNED BY: SHERRY MAXWELL MD DATE: 08/03/19 1610 Course & Med Decision Making Course & Med Decision Making Pertinent Labs and Imaging studies reviewed. (See chart for details) Evaluation of patient in ER showed 54-year-old male patient with episodes of dizziness and syncope and hands numbness. Patient had unremarkable physical exam and labs except for positive methamphetamine and marijuana abuse and CT head and chest x-ray was advised to follow-up with his primary care physician regarding chronic problem. Dragon Disclaimer Dragon Disclaimer This electronic medical record was generated, in whole or in part, using a voice recognition dictation system. Departure Departure Impression: Primary Impression: Recurrent syncope Additional Impressions: Dizziness Anemia, mild Paresthesia Methamphetamine abuse Marijuana abuse Disposition: HOME, SELF-CARE (at 1649) Condition: STABLE Referrals: AMADA BROWN MD (PCP) Patient Instructions: Anemia, FAQs, Dizziness, Paresthesia, Syncope Additional Instructions: Drink plenty of liquids Follow-up with your primary care physician in 2-3 days for more evaluation and arrangement for colonoscopy Return to ER if not getting better Thank you for visiting . We appreciate you trusting us with your care. If any additional problems come up don't hesitate to return to visit us. Please follow up with your primary care provider so they can plan additional care if needed and know about the problem that you had. If symptoms worsen come back to the Emergency Department. Any concerning symptoms that start such as chest pain, shortness of air, weakness or numbness on one side of the body, running high fevers or any other concerning symptoms return to the ER. Scripts Thiamine Hcl (VITAMIN B-1) 100 Mg Tablet 1 TAB PO DAILY for 30 Days, #30 TAB 0 Refills Prov: JOCELYNE ROSS MD 08/03/19 Problem Qualifiers JOCELYNE ROSS MD Aug 03, 2019 15:16
[2019-08-03 15:29] LABS: BASO # 0.1 x10^3/uL (0.0-0.2); BASO % 1 % (0-3); EOS # 0.1 x10^3/uL (0.0-0.7); EOS % 2 % (0-3); HEMATOCRIT 39.7 % (39.0-53.0); HEMOGLOBIN 12.6 g/dL (13.0-17.5); LYMPH # 1.9 x10^3/uL (1.0-4.8); LYMPH % 26 % (24-48); MEAN CORPUSCULAR HEMOGLOBIN 23 pg (25-35); MEAN CORPUSCULAR HGB CONC 32 g/dL (31-37); MEAN CORPUSCULAR VOLUME 73 fL (79-100); MONO # 0.8 x10^3/uL (0.0-1.1); MONO % 12 % (0-9); NEUT # 4.4 x10^3/uL (1.8-7.7); NEUT % 60 % (31-73); PLATELET COUNT 275 x10^3/uL (140-400); RED BLOOD COUNT 5.41 x10^6/uL (4.30-5.70); WHITE BLOOD COUNT 7.3 x10^3/uL (4.0-11.0)
[2019-08-03 15:42] LABS: CALCIUM 8.5 mg/dL (8.5-10.1); GFR 77.9; POTASSIUM 3.6 mmol/L (3.5-5.1)
[2019-08-03 15:47] LABS: ALBUMIN 3.2 g/dL (3.4-5.0); ALBUMIN/GLOBULIN RATIO 0.9 (1.0-1.7); MAGNESIUM 1.8 mg/dL (1.8-2.4); TOTAL BILIRUBIN 0.2 mg/dL (0.2-1.0); TOTAL PROTEIN 6.9 g/dL (6.4-8.2)
--- NOTE | 2019-08-03 15:52 | RAD ---
EXAM: CHEST 1 VIEW History: Syncope COMPARISON: 11/01/2018 TECHNIQUE: Single portable radiograph of the chest FINDINGS: The cardiac silhouette is unremarkable. The lungs are clear bilaterally. The costophrenic sulci are clear and well demarcated. Small calcified granuloma identified in the right upper lobe of the lung unchanged. IMPRESSION: No radiographic evidence of an acute cardiopulmonary process. Electronically signed by: Yogesh Wilks MD (08/03/2019 3:49 PM) [id number]
--- NOTE | 2019-08-03 16:13 | RAD ---
Exam: CT head INDICATION: Syncope TECHNIQUE: Sequential axial images through the head were obtained without the administration of IV contrast. Comparisons: None FINDINGS: No focal parenchymal lesion or hemorrhage is identified. There is no midline shift or sulcal effacement. No acute vascular territory infarction is identified. Monae-white distinction is preserved. The ventricular system is within normal limits without compression hydrocephalus. The basal cisterns are well maintained. The visualized portions of the paranasal sinuses and mastoid air cells are well-pneumatized. No acute fractures. IMPRESSION: No acute intracranial abnormality. Exposure: One or more of the following in the visualized dose reduction techniques were utilized for this examination: 1. Automated exposure control 2. Adjustment of the MA and/or KV according to patient size Use of iterative of reconstructive technique Electronically signed by: Sherry Stahl MD (08/03/2019 4:10 PM) [facility]
[2019-08-03 16:49] VITALS: BP 149/83
[2019-08-03] MEDS ORDERED: THIA100T57 PO (16:51)
[2019-08-03 17:19] LABS: BARBITURATES NEG (NEG); BENZODIAZEPINES NEG (NEG); CANNABINOIDS POS (NEG); COCAINE NEG (NEG); METHADONE NEG (NEG); OPIATES NEG (NEG); PHENCYCLIDINE NEG (NEG)
[2019-08-03 17:23] LABS: AMPHETAMINE/METHAMPHETAMINE POS (NEG)
--- NOTE | 2019-08-04 13:41 | EKG ---
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
== END 2019-08-03 17:07 | disposition home or self-care (01) ==
LOC: ER 14:03
DX: R55 Syncope and collapse (principal); D64.9 Anemia, unspecified; R20.2 Paresthesia of skin; F15.10 Other stimulant abuse, uncomplicated; F12.10 Cannabis abuse, uncomplicated; I10 Essential (primary) hypertension; G89.29 Other chronic pain; Z90.49 Acquired absence of other specified parts of digestive tract; Z88.1 Allergy status to other antibiotic agents
CPT/HCPCS: 36415; 70450; 71045; 80053; 80307; 83735; 84484; 85025; 93005; 99285-25

== ENCOUNTER → 2019-09-13 | Outpatient (CLI) | payer OTHER ==
[~2019-09-13] MED LIST changes: -CETI10TA22 PO; +CETI10TA24 PO; +THIA100T57 PO
--- NOTE | 2019-09-13 14:44 | KCIC ---
MRI Cervical Spine Without Contrast History: Cervical radiculopathy, worsening symptoms, bilateral upper extremity numbness Technique: Multiplanar, multi sequential noncontrast MR imaging was performed of the cervical spine. Comparison: April 14, 2018 Findings: There is significant motion degradation even for repeated images. Cervical cord caliber is within normal limits without new expansile signal abnormality, limited evaluation for signal change due to motion. Cervical vertebral body stature is overall preserved. There is again straightening of cervical spine. There is likely unchanged minimal grade 1 anterior spondylolisthesis C4-5. There is again moderate to severe degenerative disc disease at C5-6, minimally at C2-C3. There is C5-6 endplate edema likely reactive/degenerative in etiology. C2-C3: There is again uncovertebral degenerative change greater on the right. There is minimal disc osteophyte complex greater in the right lateral recess, spinal canal overall adequate. There is again suspected mild neural foramina compromise bilaterally. C3-C4: There is again severe right facet degenerative change, also right uncovertebral degenerative change. There is again severe narrowing of the right neural foramen, spinal canal and left neural foramen overall adequate. C4-C5: There is again severe left facet hypertrophic change contributing to likely severe narrowing of the left neural foramen although poorly characterized due to severe motion. Spinal canal and right neural foramen are overall adequate. C5-C6: There is again disc osteophyte complex indenting the ventral thecal sac, central canal narrowed to about 9 to 10 mm. There is again facet into change bilaterally also likely right uncovertebral degenerative change. Neural foramina are poorly characterized due to severe motion, probable fairly severe right and at least moderate left neural foramina compromise. C6-C7: Spinal canal is overall adequate. Neural foramina are poorly characterized due to severe motion, possible mild narrowing on the right by uncovertebral degenerative change, left neural foramen overall adequate. C7-T1: Spinal canal and neural foramina are overall adequate. Impression: 1. There is significant motion degradation even for repeated images. Findings are not convincingly changed compared with March 2018 exam. There is again mild spinal stenosis C5-6. There is again degenerative disc disease and spondylosis greatest at C5-6. There is multilevel facet degenerative change contributing to multilevel neural foramina compromise, again more significant narrowing on the right at C3-4, on the left at C4-C5, and bilaterally at C5-C6. Electronically signed by: Bola Aragon MD (09/13/2019 2:41 PM) [id number]
== END | disposition home or self-care (01) ==
LOC: KCIC MRI 13:20
PROVIDERS: ATTEND Nurse Practitioner Gerontology
DX: M43.12 Spondylolisthesis, cervical region (principal); M50.122 Cervical disc disorder at C5-C6 level with radiculopathy; M47.22 Other spondylosis with radiculopathy, cervical region; M48.02 Spinal stenosis, cervical region; M25.78 Osteophyte, vertebrae
CPT/HCPCS: 72141

== ENCOUNTER 2019-09-28 16:17 | Emergency (ER) | payer OTHER ==
[~2019-09-28] VITALS: Ht 175.3 cm; Wt 109.0 kg
[2019-09-28 16:20] VITALS: BP 152/75
[2019-09-28] MEDS ORDERED: IPRATRPIUM/ALBUTEROL 0.5/2.5MG 3 ML NEBU. NEB STA (16:42)
--- NOTE | 2019-09-28 16:44 | PHYS DOC ---
Past Medical History Past Medical History: Hypertension, Other Additional Past Medical Histor: Upper Respiratory Infection,CHRONIC NECK PAIN Past Surgical History: Cholecystectomy, Other Additional Past Surgical Histo: R testicular surgery Smoking Status: Former Smoker Alcohol Use: Occasionally Drug Use: Marijuana Adult General Chief Complaint Chief Complaint: COUGH HPI HPI Patient is a 54 year old male who presents with cough this been ongoing for 3 weeks. The patient denies having a fever, denies sore throat, denies nausea, vomiting, diarrhea. The patient does state she feels a little bit short of breath but no more than normal. The patient has a history of COPD and asthma. The patient states he's been having a runny nose and congestion. Denies any additional complaints. Complete ROS were reviewed and found to be within normal limits, except as documented in the HPI Current Medications Current Medications Current Medications Medications (Trade) Dose Ordered Sig/Job Start Time Stop Time Status Last Admin Dose Admin Albuterol/ Ipratropium (Duoneb) 3 ml 1X STAT 09/28/19 16:42 09/28/19 16:44 DC 09/28/19 16:50 3 ML Allergies Allergies Allergies Coded Allergies Type Severity Reaction Last Updated Verified tetracycline Allergy Intermediate Hives 05/03/18 Yes Physical Exam Physical Exam Constitutional: Well developed, well nourished, no acute distress, non-toxic appearance. [] HENT: Normocephalic, atraumatic, bilateral external ears normal, bilateral tympanic membranes are pearly kee, oropharynx moist, no oral exudates, nose turbinates are inflamed. Eyes: PERRLA, EOMI, conjunctiva normal, no discharge. [] Neck: Normal range of motion, no tenderness, supple, no stridor. [] Cardiovascular:Heart rate regular rhythm, no murmur [] Lungs & Thorax: Bilateral breath sounds clear to auscultation [] Abdomen: Bowel sounds normal, soft, no tenderness, no masses, no pulsatile masses. [] Skin: Warm, dry, no erythema, no rash. [] Neurologic: Alert and oriented X 3, normal motor function, normal sensory function, no focal deficits noted. [] Psychologic: Affect normal, judgement normal, mood normal. [] Current Patient Data Vital Signs Vital Signs Date Time Temp Pulse Resp B/P (MAP) Pulse Ox O2 Delivery O2 Flow Rate FiO2 09/28/19 16:52 95 Room Air 09/28/19 16:20 98.7 111 22 152/75 (100) 98.7 EKG EKG [] Radiology/Procedures Radiology/Procedures [][facility] [address] [place] [address] IMAGING REPORT Signed PATIENT: BESSIE ZAPATA ACCOUNT: [id number] : 1965 LOCATION: ER AGE: 54 SEX: M EXAM STATUS: PRE ER ORD. PHYSICIAN: BESSIE MARTÍNEZ APRN REASON: cough PROCEDURE: CHEST PA & LATERAL Chest, PA and Lateral: Technique: PA and lateral views of the chest were obtained. History: Cough. Comparison: 08/03/2019. Findings: The heart and pulmonary vasculature appear within normal limits. The lungs are clear. The pleural margins are clear. Impression: No acute chest process is seen. Electronically signed by: Yogesh Wilks MD (09/28/2019 5:13 PM) [facility] DICTATED and SIGNED BY: YOGESH WILKS MD DATE: 09/28/19 1713 Course & Med Decision Making Course & Med Decision Making Pertinent Labs and Imaging studies reviewed. (See chart for details) Will get chest x-ray, and breathing treatment. Patient has been sick for three weeks with symptoms. Will place on Zithromax and Medrol Dose pack. X-ray is unremarkable. Dragon Disclaimer Dragon Disclaimer This electronic medical record was generated, in whole or in part, using a voice recognition dictation system. Departure Departure Impression: Primary Impression: Upper respiratory infection Disposition: 01 HOME, SELF-CARE Condition: STABLE Referrals: AMADA BROWN MD (PCP) Patient Instructions: Upper Respiratory Infection, Adult Additional Instructions: Thank you for visiting [facility]. We appreciate you trusting us with your care. If any additional problems come up don't hesitate to return to visit us. Please follow up with your primary care provider so they can plan additional care if needed and know about the problem that you had. If symptoms worsen come back to the Emergency Department. Any concerning symptoms that start such as chest pain, shortness of air, weakness or numbness on one side of the body, running high fevers or any other concerning symptoms return to the ER. You have been prescribed an antibiotic today to help fight your infection. Please take all of the antibiotic as directed. If after 48 hours the infection is not improving, please return for more care. If the infection worsens, return to ER for additional care. Please fill your medications at any pharmacy and follow the prescription instructions. Scripts Azithromycin (ZITHROMAX PACKET) 1 Gm Packet 1 PACKET PO ONCE, #1 PACKET Prov: BESSIE MARTÍNEZ APRN 09/28/19 Methylprednisolone (MEDROL) 4 Mg Tab.ds.pk 1 PKG PO UD, #1 PKG Prov: BESSIE MARTÍNEZ APRN 09/28/19 Problem Qualifiers Primary Impression: Upper respiratory infection URI type: unspecified URI Qualified Codes: J06.9 - Acute upper respiratory infection, unspecified BESSIE MARTÍNEZ APRN Sep 28, 2019 16:44
--- NOTE | 2019-09-28 17:16 | RAD ---
Chest, PA and Lateral: Technique: PA and lateral views of the chest were obtained. History: Cough. Comparison: 08/03/2019. Findings: The heart and pulmonary vasculature appear within normal limits. The lungs are clear. The pleural margins are clear. Impression: No acute chest process is seen. Electronically signed by: Yogesh Wilks MD (09/28/2019 5:13 PM) [facility]
[2019-09-28] MEDS ORDERED: METH4TAB2 PO (17:40)
[2019-09-28] MEDS ORDERED: AZIT1PAC PO (17:40)
== END 2019-09-28 17:59 | disposition home or self-care (01) ==
LOC: ER 16:17
DX: J06.9 Acute upper respiratory infection, unspecified (principal); J44.9 Chronic obstructive pulmonary disease, unspecified; I10 Essential (primary) hypertension; G89.29 Other chronic pain; Z87.891 Personal history of nicotine dependence; Z88.1 Allergy status to other antibiotic agents
CPT/HCPCS: 71046; 94640; 99283; J7620

== ENCOUNTER → 2019-10-02 | Outpatient (CLI) | payer OTHER ==
[2019-09-28 16:20] VITALS: BP 152/75
[~2019-10-02] MED LIST changes: +LEVO750T31 PO; +METH4TAB2 PO
--- NOTE | 2019-10-03 01:25 | PAIN ---
DATE OF SERVICE: 10/02/2019 INITIAL CONSULTATION FOR PAIN CLINIC CHIEF COMPLAINT: Neck and bilateral upper extremity pain. HISTORY OF PRESENT ILLNESS: This is a 54-year-old male who presents with history of pain in the base of neck, upper extremities and shoulders for about 3 years, gradually increasing, not a result of any specific injury or accident he is aware of. The patient reports it just came on, got worse over time. He has had some physical therapy for this, which has helped. This was in March of last summer 2018. The patient reports it did decrease the pain fairly significantly, but it has been returning on him, now much more noticeably over the past few months. The patient reports no motor loss, but significant fatigability of both the upper extremities, especially the right arm as he is right-hand dominant. The patient reports no complete loss of function, but significant fatigability. The patient reports the pain is constant, sharp, stabbing, throbbing, and shooting in the upper extremities, mostly in the anterior and posterior aspects of the upper arms, forearms and hands with tingling and numbness in both hands, radiating, burning, cramping, aching in the neck. The patient did have MRI scan of the cervical spine showing significant mild spinal stenosis at C5-C6 with degenerative disk disease and spondylosis greatest at C5-C6 with multilevel facet degenerative change, more significant narrowing on the right at C3-C4, left at C4-C5, bilaterally at C5-C6. The patient rates disability rating from 0-10, 10 being the worst, is a 7-8 with family and home responsibilities, 9 with recreation, occupation and life support activities, 8 with social activity and sexual behavior, 6 with self-care activities. The patient reports the pain does awaken him from sleep about 3-5 times a night, does not affect his bowel or bladder control, but can affect his ability to walk if he is walking greater distances with fatigability in the shoulders and arms. The patient reports no loss of motor function, but again significant difficulty with fine motor movements and repetitive lifting, reaching over his head with his hands or any repetitive lifting or motions with the upper extremities. PAST MEDICAL HISTORY: Significant for COPD, hypertension, tachycardia, gastroesophageal reflux, dizziness, and arthritis. PREVIOUS SURGERY: Include cholecystectomy, right hydrocelectomy, and wisdom teeth extraction. CURRENT MEDICATIONS: Include ibuprofen, losartan, Robaxin, ProAir inhaler, Singulair, and Zyrtec. ALLERGIES: THE PATIENT REPORTS ALLERGY TO DOXYCYCLINE AND HYDROCODONE. FAMILY HISTORY: Significant for hypertension. SOCIAL HISTORY: The patient drinks 2-3 beers once or twice a year, does smoke about 2 packs a day of [place], did smoke marijuana, but quit about a year ago by his report. The patient is single, lives locally in [place], [place]. Reports he is currently not working. REVIEW OF SYSTEMS: The patient's review of systems is positive for those items mentioned in history of present illness. All systems reviewed and otherwise negative. It is complete, full and well documented on the patient's chart. PHYSICAL EXAMINATION: VITAL SIGNS: The patient's blood pressure 158/104, pulse 107, respirations 16, temperature 98.0 degrees Fahrenheit, height is 5 feet 9 inches, weight is 241 pounds. GENERAL: The patient is awake, alert, oriented, appropriate, very pleasant demeanor. HEENT: Head shows normocephalic, atraumatic. Extraocular movements are intact and symmetrical. Oral cavity: Mucous membranes moist and pink. Dentition is intact. NECK: Shows anterior throat supple without palpable lymphadenopathy noted. Swallow reflex symmetrical. CHEST: Shows normal on inspection. Breath sounds are clear to auscultation bilaterally. HEART: Shows S1, S2 clear. No murmurs auscultated. ABDOMEN: Soft, nontender, and nondistended. No palpable organomegaly is noted. No rebound or guarding demonstrated. BACK: Shows spine grossly in the midline, normal-appearing cervical lordotic curvature, thoracic kyphotic curvature and lumbar lordotic curvature. Cervical paraspinous muscle shows symmetrical on inspection, with palpation shows some moderate tenderness diffusely bilaterally, but only diffusely without significant radiation. The patient has good rotational motion of cervical spine, both laterally greater than 45 degrees, closer to 90 degrees right and left as well as full extension, full forward flexion without significant pain reported. EXTREMITIES: The patient's upper extremities show deep tendon reflexes 2+ in the biceps and triceps tendons. 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 Peripheral pulses are 2+ radial distribution. No peripheral edema is noted. Upper extremities are warm and dry to touch, equal in color and appearance. The patient's shoulder shrug is strong and intact without loss of strength on resistance, but with some moderate pain reported bilaterally in the shoulders, but without radiation in the upper extremities as with abduction of the shoulder to 90 degrees, which is performed well without loss of strength on resistance bilaterally. The patient's skin shows warm and dry, good turgor. No edema. No sores, rashes or bruising throughout. IMPRESSION: 1. This is a 54-year-old male with approximately 3-year history of pain in the base of the neck, upper extremities in a radicular fashion. 2. Cervical MRI scan as noted. 3. Arthritis. 4. Hypertension. 5. Chronic obstructive pulmonary disease. PLAN: Options were discussed with the patient including conservative medical managements, physical therapies and interventional techniques and he would like to pursue interventional techniques. We discussed a cervical epidural steroid injection, but he would first like to try more conservative measures. We discussed the matter further and if he did well with physical therapy in the past, we will order the patient for physical therapy to include traction of the cervical spine also. The patient will follow up after physical therapy is completed. If not significantly improved, we did discuss potential interventional techniques at that time. KALEY VIDES MD DR: PIPER/peggy JOB#: [id number] / [id number] ALICIA Son APRN
== END | disposition home or self-care (01) ==
LOC: PNCL 07:58
PROVIDERS: ATTEND Anesthesiology
DX: M54.2 Cervicalgia (principal); M79.641 Pain in right hand; M79.642 Pain in left hand; J44.9 Chronic obstructive pulmonary disease, unspecified; I10 Essential (primary) hypertension; K21.9 Gastro-esophageal reflux disease without esophagitis; M19.90 Unspecified osteoarthritis, unspecified site; Z90.49 Acquired absence of other specified parts of digestive tract
CPT/HCPCS: G0463

== ENCOUNTER 2019-10-04 22:20 | Emergency (ER) | payer OTHER ==
[~2019-10-04] VITALS: Ht 175.3 cm; Wt 111.0 kg
[~2019-10-04 22:20] MED LIST changes: -LEVO750T31 PO
[2019-10-04] MEDS ORDERED: IPRATRPIUM/ALBUTEROL 0.5/2.5MG 3 ML NEBU. NEB ONE (23:30)
--- NOTE | 2019-10-04 23:31 | PHYS DOC ---
Past Medical History Past Medical History: Hypertension, Other Additional Past Medical Histor: Upper Respiratory Infection,CHRONIC NECK PAIN Past Surgical History: Cholecystectomy, Other Additional Past Surgical Histo: R testicular surgery Smoking Status: Former Smoker Alcohol Use: Occasionally Drug Use: Marijuana Adult General Chief Complaint Chief Complaint: COUGH HPI HPI 54-year-old male underlying history of COPD, hypertension [facility] complaints of shortness of breath, cough. Patient was diagnosed with upper respiratory tract infection on September 28, 2019 he was provided Z pack at that time. He states he's had continued cough, productive with evidence of blood tinged sputum. He describes a headache behind his eyes. He is to contact on examination, not febrile, tachycardic. Patient denies any chest pain, complains of shortness of breath, nausea. Nothing makes his symptoms worse, nothing makes his symptoms better. Patient has a rash appreciated to his back, warm to the touch, no mucosal involvement. Review of Systems Review of Systems Constitutional: chills Respiratory:Cough/SOB Cardiovascular: No additional information not addressed in HPI [] GI: Denies abdominal pain, + nausea, no vomiting, bloody stools or diarrhea [] Musculoskeletal: Denies back pain or joint pain [] Integument: redness appreciated to bilateral flank Neurologic: + headache, focal weakness or sensory changes [] All other systems were reviewed and found to be within normal limits, except as documented in this note. Current Medications Current Medications Current Medications Medications (Trade) Dose Ordered Sig/Job Start Time Stop Time Status Last Admin Dose Admin Albuterol/ Ipratropium (Duoneb) 3 ml 1X ONCE 10/04/19 23:30 10/04/19 23:31 DC 10/04/19 23:41 3 ML Levofloxacin/ Dextrose 150 ml @ 100 mls/hr 1X ONCE 10/05/19 01:00 10/05/19 02:29 10/05/19 00:54 100 MLS/HR Allergies Allergies Allergies Coded Allergies Type Severity Reaction Last Updated Verified doxycycline Allergy Intermediate Unknown 10/02/19 Yes tetracycline Allergy Intermediate Hives 05/03/18 Yes Physical Exam Physical Exam Constitutional: Well developed, well nourished, ill appearing. [] HENT: Normocephalic, atraumatic, bilateral external ears normal, oropharynx moist, no oral exudates, nose normal. [] Eyes: PERRLA, EOMI, conjunctiva normal, no discharge. [] Neck: Normal range of motion, no tenderness, supple, no stridor. [] Cardiovascular: Tachycardia Lungs & Thorax: Coarse BS Abdomen: Bowel sounds normal, soft, no tenderness, no masses, no pulsatile masses. [] Skin: Warm, dry, no erythema, no rash. [] Back: No tenderness, no CVA tenderness. [] Extremities: No tenderness, no edema. [] Neurologic: Alert and oriented X 3, no focal deficits noted. [] Psychologic: Affect normal, judgement normal, mood normal. [] Current Patient Data Vital Signs Vital Signs Date Time Temp Pulse Resp B/P (MAP) Pulse Ox O2 Delivery O2 Flow Rate FiO2 10/04/19 23:44 98 Room Air Lab Values Laboratory Tests Test 10/04/19 23:39 White Blood Count 10.7 x10^3/uL (4.0-11.0) Red Blood Count 4.91 x10^6/uL (4.30-5.70) Hemoglobin 11.5 g/dL (13.0-17.5) L Hematocrit 35.6 % (39.0-53.0) L Mean Corpuscular Volume 73 fL (79-100) L Mean Corpuscular Hemoglobin 23 pg (25-35) L Mean Corpuscular Hemoglobin Concent 32 g/dL (31-37) Red Cell Distribution Width 14.8 % (11.5-14.5) H Platelet Count 248 x10^3/uL (140-400) Neutrophils (%) (Auto) 55 % (31-73) Lymphocytes (%) (Auto) 33 % (24-48) Monocytes (%) (Auto) 7 % (0-9) Eosinophils (%) (Auto) 5 % (0-3) H Basophils (%) (Auto) 1 % (0-3) Neutrophils # (Auto) 5.8 x10^3/uL (1.8-7.7) Lymphocytes # (Auto) 3.5 x10^3/uL (1.0-4.8) Monocytes # (Auto) 0.8 x10^3/uL (0.0-1.1) Eosinophils # (Auto) 0.6 x10^3/uL (0.0-0.7) Basophils # (Auto) 0.1 x10^3/uL (0.0-0.2) Sodium Level 144 mmol/L (136-145) Potassium Level 3.2 mmol/L (3.5-5.1) L Chloride Level 108 mmol/L (98-107) H Carbon Dioxide Level 28 mmol/L (21-32) Anion Gap 8 (6-14) Blood Urea Nitrogen 21 mg/dL (8-26) Creatinine 1.1 mg/dL (0.7-1.3) Estimated GFR (Cockcroft-Gault) 69.8 BUN/Creatinine Ratio 19 (6-20) Glucose Level 158 mg/dL (70-99) H Lactic Acid Level 2.2 mmol/L (0.4-2.0) H Calcium Level 8.0 mg/dL (8.5-10.1) L Total Bilirubin 0.2 mg/dL (0.2-1.0) Aspartate Amino Transferase (AST) 23 U/L (15-37) Alanine Aminotransferase (ALT) 38 U/L (16-63) Alkaline Phosphatase 104 U/L (46-116) Troponin I Quantitative < 0.017 ng/mL (0.000-0.055) YG-Uin-J-Type Natriuretic Peptide 80 pg/mL (0-124) Total Protein 6.1 g/dL (6.4-8.2) L Albumin 2.9 g/dL (3.4-5.0) L Albumin/Globulin Ratio 0.9 (1.0-1.7) L Influenza Type A Antigen Negative (NEGATIVE) Influenza Type B Antigen Negative (NEGATIVE) Laboratory Tests 10/04/19 23:39 Laboratory Tests 10/04/19 23:39 EKG EKG [] Radiology/Procedures Radiology/Procedures CXR with evidence of right middle lobe PNA[] Course & Med Decision Making Course & Med Decision Making Pertinent Labs and Imaging studies reviewed. (See chart for details) []54-year-old male underlying history of COPD, hypertension presents to the emergency Department complaints of shortness of breath, cough. Patient was diagnosed with upper respiratory tract infection on September 28, 2019 he was provided Z pack at that time. He states he's had continued cough, productive with evidence of blood tinged sputum. He describes a headache behind his eyes. He is to contact on examination, not febrile, tachycardic. Patient denies any chest pain, complains of shortness of breath, nausea. Nothing makes his symptoms worse, nothing makes his symptoms better. Patient has a rash appreciated to his back, warm to the touch, no mucosal involvement. Labs/Imaging reviewed Shadi revise reviewed white blood cell count 10.7, lactic acid 2.2, potassium 3.2 Influenza negative CXR reveals evidence of right middle lobe pneumonia It appears patient has failed outpatient therapy, discussed staying in the hospital given sepsis criteria however patient declines Levaquin 750 mg IV 1, recommend continued inhalers as prescribed home, steroid burst provided upon discharge Even patient's sepsis criteria has been met, and that he declines admission will recommend AMA form to be signed. Discussed findings with the patient and family member the bedside Johnny Disclaimer Johnny Disclaimer This electronic medical record was generated, in whole or in part, using a voice recognition dictation system. Departure Departure Impression: Primary Impression: Sepsis Additional Impression: Community acquired pneumonia Disposition: AGAINST MEDICAL ADVICE Condition: STABLE Referrals: AMADA BROWN MD (PCP) Patient Instructions: Hypokalemia-Brief, Pneumonia, Adult, [id number], Sepsis, Adult Additional Instructions: Recommend levaquin 750mg daily x 7 days Continue inhaler as prescribed Prednisone burst 50mg x 3 days Recommend return to ER if worsening symptoms - fever, altered mental status, worsening SOB Scripts Prednisone (PREDNISONE) 50 Mg Tablet 1 TAB PO DAILY for 3 Days, #3 TAB Prov: FORREST BERRIOS MD 10/05/19 Levofloxacin (LEVAQUIN) 750 Mg Tablet 1 TAB PO DAILY for 7 Days, #7 TAB 0 Refills Prov: FORREST BERRIOS MD 10/05/19 Problem Qualifiers Primary Impression: Sepsis Sepsis type: sepsis due to unspecified organism Sepsis acute organ dysfunction status: unspecified Qualified Codes: A41.9 - Sepsis, unspecified organism Additional Impression: Community acquired pneumonia Laterality: right Lung location: middle lobe of lung Qualified Codes: J18.9 - Pneumonia, unspecified organism FORREST BERRIOS MD Oct 04, 2019 23:31
[2019-10-04 23:50] LABS: BASO # 0.1 x10^3/uL (0.0-0.2); BASO % 1 % (0-3); EOS # 0.6 x10^3/uL (0.0-0.7); EOS % 5 % (0-3); HEMATOCRIT 35.6 % (39.0-53.0); HEMOGLOBIN 11.5 g/dL (13.0-17.5); LYMPH # 3.5 x10^3/uL (1.0-4.8); LYMPH % 33 % (24-48); MEAN CORPUSCULAR HEMOGLOBIN 23 pg (25-35); MEAN CORPUSCULAR HGB CONC 32 g/dL (31-37); MEAN CORPUSCULAR VOLUME 73 fL (79-100); MONO # 0.8 x10^3/uL (0.0-1.1); MONO % 7 % (0-9); NEUT # 5.8 x10^3/uL (1.8-7.7); NEUT % 55 % (31-73); PLATELET COUNT 248 x10^3/uL (140-400); RED BLOOD COUNT 4.91 x10^6/uL (4.30-5.70); RED CELL DISTRIBUTION WIDTH 14.8 % (11.5-14.5); WHITE BLOOD COUNT 10.7 x10^3/uL (4.0-11.0)
[2019-10-05 00:02] LABS: CREATININE 1.1 mg/dL (0.7-1.3); GFR 69.8; POTASSIUM 3.2 mmol/L (3.5-5.1)
[2019-10-05 00:07] LABS: ALBUMIN 2.9 g/dL (3.4-5.0); ALBUMIN/GLOBULIN RATIO 0.9 (1.0-1.7); TOTAL BILIRUBIN 0.2 mg/dL (0.2-1.0); TOTAL PROTEIN 6.1 g/dL (6.4-8.2)
[2019-10-05 00:09] LABS: INFLUENZA A PATIENT NEGATIVE (NEGATIVE); INFLUENZA B PATIENT NEGATIVE (NEGATIVE)
[2019-10-05] MEDS ORDERED: LEVO750T31 PO (01:22)
[2019-10-05] MEDS ORDERED: PRED50TA PO (01:22)
[2019-10-05] MEDS ORDERED: POTASSIUM CHLORIDE 20 MEQ TABLET.ER. PO ONE (01:30)
[2019-10-05 02:18] VITALS: BP 129/66
--- NOTE | 2019-10-05 06:54 | EKG ---
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
--- NOTE | 2019-10-05 07:45 | RAD ---
Examination: PORTABLE CHEST 1V History: Cough Comparison/Correlation: 09/28/2019 two-view chest x-ray exam Findings: Portable frontal view the chest was obtained. Exams obtained with patient upright. Heart size and pulmonary vasculature are normal. No infiltrate or pleural effusion. No pneumothorax. Bony structures unremarkable. Calcified granuloma at the right upper lung noted. Impression: No active disease. Electronically signed by: Kenny Escamilla MD (10/05/2019 7:42 AM) [id number]
== END 2019-10-05 02:30 | disposition left against medical advice (07) ==
LOC: ER 22:20
DX: A41.9 Sepsis, unspecified organism (principal); J18.9 Pneumonia, unspecified organism; I10 Essential (primary) hypertension; G89.29 Other chronic pain; Z87.891 Personal history of nicotine dependence; Z88.1 Allergy status to other antibiotic agents
CPT/HCPCS: 36415; 71045; 80053; 83605; 83880; 84484; 85025; 87804; 93005; 94640; 96365; 99285; J1956; J7620

== ENCOUNTER 2020-08-26 00:12 | Emergency (ER) | payer OTHER ==
[~2020-08-26] VITALS: Ht 175.3 cm; Wt 110.0 kg
[~2020-08-26 00:12] MED LIST changes: -CETI10TA24 PO; +CETI10TA74 PO; +LEVO750T31 PO
[2020-08-26] MEDS ORDERED: IV NORMAL SALINE 1000ML BAG 1,000 ML IV ONE (00:45)
--- NOTE | 2020-08-26 00:46 | ED.ADGEN ---
Past Medical History Past Medical History: COPD, Hypertension, Other Additional Past Medical Histor: Upper Respiratory Infection,CHRONIC NECK PAIN Past Surgical History: Cholecystectomy, Other Additional Past Surgical Histo: R testicular surgery Smoking Status: Current Every Day Smoker Alcohol Use: Occasionally Drug Use: Marijuana General Adult EDM: Chief Complaint: ABDOMINAL PAIN HPI: HPI: Patient is a 55 year old male brought in by EMS for left lower quadrant abdominal pain. Said the pain has been intermittent over the past couple weeks. Is sharp and often causes him to vomit. Patient states the pain was intolerable tonight. Has not had any diarrhea but says he has been constipated for the past 3 days. Does not have a history of constipation. Patient states he is a appointment coming up with his GI doctor in 1 week. States he has a history of diverticulitis. States he otherwise been well denies any fevers, cough, shortness of breath, chest pain, change in urination. Has history of cholecystectomy but no other abdominal surgeries Review of Systems: Review of Systems: All other systems within normal limits except for as noted in the HPI Current Medications: Current Medications Medications (Trade) Dose Ordered Sig/Job Start Time Stop Time Status Last Admin Dose Admin Info (CONTRAST GIVEN -- Rx MONITORING) 1 each PRN DAILY PRN 08/26/20 01:00 08/28/20 00:59 Iohexol (Omnipaque 300 Mg/ml) 75 ml 1X ONCE 08/26/20 01:00 08/26/20 01:01 DC 08/26/20 01:05 75 ML Sodium Chloride 1,000 ml @ 1,000 mls/hr 1X ONCE 08/26/20 00:45 08/26/20 01:44 DC 08/26/20 01:26 1,000 MLS/HR Allergies: Allergies: Allergies Coded Allergies Type Severity Reaction Last Updated Verified doxycycline Allergy Intermediate Unknown 10/02/19 Yes tetracycline Allergy Intermediate Hives 05/03/18 Yes Physical Exam: PE: Constitutional: Well developed, well nourished, no acute distress, non-toxic appearance. [] HENT: Normocephalic, atraumatic, bilateral external ears normal, nose normal. [] Eyes: PERRLA, conjunctiva normal, no discharge. [] Neck: No rigidity, supple, no stridor. [] Cardiovascular: Regular rate and rhythm, brisk cap refill [] Lungs & Thorax: Non labored symmetric respirations, no tachypnea or respiratory distress [] Abdomen: Soft, nondistended, left lower quadrant abdominal pain with guarding.. Skin: Warm, dry, no erythema, no rash. [] Back: No tenderness, no CVA tenderness. [] Extremities: No deformities, range of motion grossly intact, no lower extremity edema [] Neurologic: Alert and oriented X 3, no focal deficits noted. [] Psychologic: Affect normal, judgement normal, mood normal. [] Current Patient Data: Labs: Laboratory Tests Test 08/26/20 00:30 08/26/20 01:43 White Blood Count 10.6 x10^3/uL (4.0-11.0) Red Blood Count 5.38 x10^6/uL (4.30-5.70) Hemoglobin 12.7 g/dL (13.0-17.5) L Hematocrit 39.1 % (39.0-53.0) Mean Corpuscular Volume 73 fL (79-100) L Mean Corpuscular Hemoglobin 24 pg (25-35) L Mean Corpuscular Hemoglobin Concent 33 g/dL (31-37) Red Cell Distribution Width 14.6 % (11.5-14.5) H Platelet Count 283 x10^3/uL (140-400) Neutrophils (%) (Auto) 78 % (31-73) H Lymphocytes (%) (Auto) 16 % (24-48) L Monocytes (%) (Auto) 6 % (0-9) Eosinophils (%) (Auto) 0 % (0-3) Basophils (%) (Auto) 1 % (0-3) Neutrophils # (Auto) 8.3 x10^3/uL (1.8-7.7) H Lymphocytes # (Auto) 1.6 x10^3/uL (1.0-4.8) Monocytes # (Auto) 0.6 x10^3/uL (0.0-1.1) Eosinophils # (Auto) 0.0 x10^3/uL (0.0-0.7) Basophils # (Auto) 0.0 x10^3/uL (0.0-0.2) Sodium Level 140 mmol/L (136-145) Potassium Level 4.3 mmol/L (3.5-5.1) Chloride Level 104 mmol/L (98-107) Carbon Dioxide Level 26 mmol/L (21-32) Anion Gap 10 (6-14) Blood Urea Nitrogen 24 mg/dL (8-26) Creatinine 1.0 mg/dL (0.7-1.3) Estimated GFR (Cockcroft-Gault) 77.6 BUN/Creatinine Ratio 24 (6-20) H Glucose Level 126 mg/dL (70-99) H Calcium Level 9.0 mg/dL (8.5-10.1) Total Bilirubin 0.2 mg/dL (0.2-1.0) Aspartate Amino Transferase (AST) 21 U/L (15-37) Alanine Aminotransferase (ALT) 49 U/L (16-63) Alkaline Phosphatase 106 U/L (46-116) Total Protein 7.0 g/dL (6.4-8.2) Albumin 3.5 g/dL (3.4-5.0) Albumin/Globulin Ratio 1.0 (1.0-1.7) Lipase 123 U/L (73-393) Urine Collection Type Unknown Urine Color Yellow Urine Clarity Clear Urine pH 5.5 (<5.0-8.0) Urine Specific [place] >=1.030 (1.000-1.030) Urine Protein Negative mg/dL (NEG-TRACE) Urine Glucose (UA) Negative mg/dL (NEG) Urine Ketones (Stick) Negative mg/dL (NEG) Urine Blood Negative (NEG) Urine Nitrite Negative (NEG) Urine Bilirubin Negative (NEG) Urine Urobilinogen Dipstick 0.2 mg/dL (0.2 mg/dL) Urine Leukocyte Esterase Negative (NEG) Urine RBC 0 /HPF (0-2) Urine WBC 0 /HPF (0-4) Urine Squamous Epithelial Cells Occ /LPF Urine Amorphous Sediment Present /HPF Urine Bacteria 0 /HPF (0-FEW) Urine Mucus Slight /LPF Laboratory Tests 08/26/20 00:30 Laboratory Tests 08/26/20 00:30 Vital Signs: Vital Signs Date Time Temp Pulse Resp B/P (MAP) Pulse Ox O2 Delivery O2 Flow Rate FiO2 08/26/20 00:30 98.2 87 20 129/66 (87) 97 Room Air 98.2 EKG: EKG: [] Heart Score: Risk Factors: Risk Factors: DM, Current or recent (<one month) smoker, HTN, HLP, family history of CAD, obesity. Risk Scores: Score 0 - 3: 2.5% MACE over next 6 weeks - Discharge Home Score 4 - 6: 20.3% MACE over next 6 weeks - Admit for Clinical Observation Score 7 - 10: 72.7% MACE over next 6 weeks - Early Invasive Strategies Radiology/Procedures: Radiology/Procedures: EXAM: CT Abdomen and Pelvis with IV contrast CLINICAL HISTORY: LLQ abd pain COMPARISON: none TECHNIQUE: Helical CT of the abdomen and pelvis was performed following the administration of intravenous contrast. Axial, coronal and sagittal reformatted images were generated. PQRS compliance statement - One or more of the following individualized dose reduction techniques were utilized for this study: 1. Automated exposure control 2. Adjustment of the mA and/or kV according to patient size 3. Use of iterative reconstruction technique FINDINGS: Lower Chest: Lung bases are clear. Abdomen and Pelvis: Hepatic hypoattenuation, likely fatty liver. Accounting for postcholecystectomy change, no biliary ductal dilatation. Pancreas, spleen, adrenal glands are normal in appearance. Symmetric nephrograms. No focal renal lesion. No hydronephrosis. No hydroureter. Bladder wall thickening. Appendix is normal. Moderate to large volume colonic stool content is seen. No small or large bowel dilatation. No bowel obstruction. Colonic diverticula are seen. Fat-containing bilateral inguinal hernias. No abdominal or pelvic lymphadenop athy. No abdominal or pelvic ascites. Aorta is normal in caliber with intermittent atherosclerotic calcifications. Trace fat-containing periumbilical hernia. Bones: No aggressive osseous lesion is seen. Hip joint and lower lumbar spine degenerative changes are seen. IMPRESSION: Hepatic hypoattenuation, likely fatty liver. Colonic diverticula are seen. No evidence for acute diverticulitis. Moderate to large volume colonic stool content can be correlated for possible constipation. [] Course & Med Decision Making: Course & Med Decision Making Pertinent Labs and Imaging studies reviewed. (See chart for details) [] Johnny Disclaimer: Johnny Disclaimer: This electronic medical record was generated, in whole or in part, using a voice recognition dictation system. Departure Departure Impression: Primary Impression: Abdominal pain Additional Impression: Constipation Disposition: 01 DC HOME SELF CARE/HOMELESS Condition: STABLE Referrals: AMADA BROWN MD (PCP) Patient Instructions: Constipation, Adult Additional Instructions: Start taking MiraLAX, 1/2-1 cap daily and increase water intake Problem Qualifiers NONI STEPHENS MD Aug 26, 2020 00:45
[2020-08-26 00:48] LABS: BASO % 1 % (0-3); EOS % 0 % (0-3); HEMATOCRIT 39.1 % (39.0-53.0); HEMOGLOBIN 12.7 g/dL (13.0-17.5); LYMPH # 1.6 x10^3/uL (1.0-4.8); LYMPH % 16 % (24-48); MEAN CORPUSCULAR HEMOGLOBIN 24 pg (25-35); MEAN CORPUSCULAR HGB CONC 33 g/dL (31-37); MEAN CORPUSCULAR VOLUME 73 fL (79-100); MONO # 0.6 x10^3/uL (0.0-1.1); MONO % 6 % (0-9); NEUT # 8.3 x10^3/uL (1.8-7.7); NEUT % 78 % (31-73); PLATELET COUNT 283 x10^3/uL (140-400); RED BLOOD COUNT 5.38 x10^6/uL (4.30-5.70); RED CELL DISTRIBUTION WIDTH 14.6 % (11.5-14.5); WHITE BLOOD COUNT 10.6 x10^3/uL (4.0-11.0)
[2020-08-26 00:58] LABS: GFR 77.6; POTASSIUM 4.3 mmol/L (3.5-5.1)
[2020-08-26] MEDS ORDERED: CONTRAST GIVEN. MC PRN (01:00)
[2020-08-26] MEDS ORDERED: IOHEXOL 300 MG/ML 100ML VIAL. IV ONE (01:00)
[2020-08-26 01:03] LABS: ALBUMIN 3.5 g/dL (3.4-5.0); TOTAL BILIRUBIN 0.2 mg/dL (0.2-1.0)
[2020-08-26 01:49] LABS: BILIRUBIN,URINE NEGATIVE (NEG); CLARITY,URINE CLEAR; COLOR,URINE YELLOW; NITRITE,URINE NEGATIVE (NEG); PH,URINE 5.5 (<5.0-8.0); PROTEIN,URINE NEGATIVE (NEG-TRACE); UROBILINOGEN,URINE 0.2 mg/dL (0.2 mg/dL)
--- NOTE | 2020-08-26 01:53 | RAD ---
EXAM: CT Abdomen and Pelvis with IV contrast CLINICAL HISTORY: LLQ abd pain COMPARISON: none TECHNIQUE: Helical CT of the abdomen and pelvis was performed following the administration of intrave nous contrast. Axial, coronal and sagittal reformatted images were generated. PQRS compliance statement - One or more of the following individualized dose reduction techniques wer e utilized for this study: 1. Automated exposure control 2. Adjustment of the mA and/or kV according to patient size 3. Use of iterative reconstruction technique FINDINGS: Lower Chest: Lung bases are clear. Abdomen and Pelvis: Hepatic hypoattenuation, likely fatty liver. Accounting for postcholecystectomy change, no biliary du ctal dilatation. Pancreas, spleen, adrenal glands are normal in appearance. Symmetric nephrograms. No focal renal lesion. No hydronephrosis. No hydroureter. Bladder wall thicken ing. Appendix is normal. Moderate to large volume colonic stool content is seen. No small or large martinez wel dilatation. No bowel obstruction. Colonic diverticula are seen. Fat-containing bilateral inguinal hernias. No abdominal or pelvic lymphadenopathy. No abdominal or pe lvic ascites. Aorta is normal in caliber with intermittent atherosclerotic calcifications. Trace fat- containing periumbilical hernia. Bones: No aggressive osseous lesion is seen. Hip joint and lower lumbar spine degenerative changes are seen. IMPRESSION: Hepatic hypoattenuation, likely fatty liver. Colonic diverticula are seen. No evidence for acute diverticulitis. Moderate to large volume colonic stool content can be correlated for possible constipation. Electronically signed by: Jaziel Mott MD (08/26/2020 1:51 AM) [facility]
[2020-08-26 02:00] LABS: BACTERIA,URINE 0 /HPF (0-FEW); RBC,URINE 0 /HPF (0-2); WBC,URINE 0 /HPF (0-4)
[2020-08-26 02:01] LABS: AMORPHOUS SEDIMENT,UR PRESENT /HPF
[2020-08-26] MEDS ORDERED: MAGNESIUM CITRATE 296 ML SOLUTION. PO ONE (02:15)
[2020-08-26 02:27] VITALS: BP 184/96
== END 2020-08-26 00:32 | disposition home or self-care (01) ==
LOC: ER 00:12
DX: R10.32 Left lower quadrant pain (principal); R11.2 Nausea with vomiting, unspecified; J44.9 Chronic obstructive pulmonary disease, unspecified; I10 Essential (primary) hypertension; F17.200 Nicotine dependence, unspecified, uncomplicated; F12.90 Cannabis use, unspecified, uncomplicated; G89.29 Other chronic pain; Z90.49 Acquired absence of other specified parts of digestive tract; Z98.890 Other specified postprocedural states
CPT/HCPCS: 36415; 74177; 80053; 81001; 83690; 85025; 96360; 99285; J7030; Q9967

== ENCOUNTER 2021-02-28 22:42 | Emergency (ER) | payer OTHER ==
[~2021-02-28] VITALS: Ht 175.3 cm; Wt 102.0 kg
[2021-03-01 00:47] LABS: BASO # 0.1 x10^3/uL (0.0-0.2); BASO % 1 % (0-3); EOS # 0.1 x10^3/uL (0.0-0.7); EOS % 0 % (0-3); HEMOGLOBIN 14.1 g/dL (13.0-17.5); LYMPH # 2.5 x10^3/uL (1.0-4.8); LYMPH % 18 % (24-48); MEAN CORPUSCULAR HEMOGLOBIN 23 pg (25-35); MEAN CORPUSCULAR HGB CONC 32 g/dL (31-37); MEAN CORPUSCULAR VOLUME 73 fL (79-100); MONO % 7 % (0-9); NEUT # 10.3 x10^3/uL (1.8-7.7); NEUT % 74 % (31-73); PLATELET COUNT 321 x10^3/uL (140-400); RED BLOOD COUNT 6.07 x10^6/uL (4.30-5.70); RED CELL DISTRIBUTION WIDTH 14.8 % (11.5-14.5); WHITE BLOOD COUNT 13.9 x10^3/uL (4.0-11.0)
[2021-03-01 00:55] LABS: CREATININE 1.1 mg/dL (0.7-1.3); GFR 69.2; POTASSIUM 4.3 mmol/L (3.5-5.1)
[2021-03-01] MEDS ORDERED: IV NORMAL SALINE 1000ML BAG 1,000 ML IV SCH (01:00)
[2021-03-01] MEDS ORDERED: FAMOTIDINE 20 MG/2 ML VIAL IVP ONE (01:00)
[2021-03-01] MEDS ORDERED: MORPHINE SULFATE 4 MG/ML INJ. IV ONE ×2 (01:00→03:00)
[2021-03-01] MEDS ORDERED: PANTOPRAZOLE IV PUSH 40 MG VIAL. IVP ONE (01:00)
[2021-03-01 01:02] LABS: ALBUMIN 3.6 g/dL (3.4-5.0); DIRECT BILIRUBIN 0.1 mg/dL (0.0-0.2); TOTAL BILIRUBIN 0.3 mg/dL (0.2-1.0); TOTAL PROTEIN 7.2 g/dL (6.4-8.2)
--- NOTE | 2021-03-01 01:17 | PHYS DOC ---
Past Medical History Past Medical History: COPD, Hypertension, Other Additional Past Medical Histor: Upper Respiratory Infection,CHRONIC NECK PAIN Past Surgical History: Cholecystectomy, Other Additional Past Surgical Histo: R testicular surgery Smoking Status: Former Smoker Alcohol Use: Occasionally Drug Use: Marijuana Social History Narrative: MAYBE ONCE EVERY 3-4 MONTH [facility] Adult EDM: Chief Complaint: ABDOMINAL PAIN HPI: HPI: 56-year-old male past medical history significant for COPD, hypertension and "gastroenteritis," presents to the ED with complaints of lower abdominal pain that moves to the upper abdomen and chest, described as stabbing for the past 2 and half weeks. Has been seen by Dr. Cabrera, GI, since 2012 and discontinued his Pepcid 6 months ago due to lack of follow-up. Is concerned for cancer. Reports associated vomiting, nonbloody nonbilious. Last bowel movement was at 10:30 PM, no melena or hematochezia. States pain feels similar to his gastroenteritis but is more severe. PSH-cholecystectomy. Denies any recent alcohol/drug use. Review of Systems: Review of Systems: Constitutional: Denies fever or chills, denies weight loss or night sweats Eyes: Denies change in visual acuity. [] HENT: Denies nasal congestion or sore throat. [] Respiratory: Denies cough or shortness of breath. [] Cardiovascular: Denies chest pain or edema. [] GI: Denies melena, hematochezia, hematemesis or diarrhea : Denies dysuria or hematuria Musculoskeletal: Denies back pain or joint pain. [] Integument: Denies rash or diaphoresis Neurologic: Denies headache, focal weakness or sensory changes. [] Endocrine: Denies polyuria or polydipsia. [] Lymphatic: Denies swollen glands. [] Psychiatric: Denies depression or anxiety. [] Heart Score: C/O Chest Pain: Yes HEART Score for Chest Pain: HEART Score for Chest Pain Response (Comments) Value History Slighlty/Non-Suspicious 0 ECG Normal 0 Age >45 - < 65 1 Risk Factors 1 or 2 Risk Factors 1 Troponin < Normal Limit 0 Total 2 Risk Factors: Risk Factors: DM, Current or recent (<one month) smoker, HTN, HLP, family history of CAD, obesity. Risk Scores: Score 0 - 3: 2.5% MACE over next 6 weeks - Discharge Home Score 4 - 6: 20.3% MACE over next 6 weeks - Admit for Clinical Observation Score 7 - 10: 72.7% MACE over next 6 weeks - Early Invasive Strategies Current Medications: Current Medications Medications (Trade) Dose Ordered Sig/Job Start Time Stop Time Status Last Admin Dose Admin Famotidine (Pepcid Vial) 20 mg 1X ONCE 03/01/21 01:00 03/01/21 01:01 DC Morphine Sulfate (Morphine Sulfate) 4 mg 1X ONCE 03/01/21 01:00 03/01/21 01:01 DC Pantoprazole Sodium (PROTONIX VIAL for IV PUSH) 40 mg 1X ONCE 03/01/21 01:00 03/01/21 01:01 DC Sodium Chloride 1,000 ml @ 1,000 mls/hr Q1H 03/01/21 01:00 03/01/21 01:59 Allergies: Allergies: Allergies Coded Allergies Type Severity Reaction Last Updated Verified doxycycline Allergy Intermediate Unknown 12/30/20 Yes tetracycline Allergy Intermediate Hives 12/30/20 Yes Physical Exam: PE: Constitutional: Uncomfortable appearing, afebrile HENT: Normocephalic, atraumatic, dry mucous membranes Eyes: EOMI, conjunctiva normal, no discharge. Neck: Normal range of motion, supple, Cardiovascular: S1/2 present, tachycardic at 104 on arrival Lungs & Thorax: Speaking in full sentences, bilateral equal chest rise, no tachypnea or increased work of breathing Abdomen: soft, nonfocal tenderness/obese pannus- pain worse in epigastric region Skin: Warm, dry, Back: No tenderness, no CVA tenderness. [] Extremities: No tenderness, no cyanosis, Neurologic: Alert and oriented X 3, normal motor function, normal sensory function, no focal deficits noted. [] Psychologic: Affect normal, judgement normal, mood normal. [] Current Patient Data: Labs: Laboratory Tests Test 03/01/21 00:30 White Blood Count 13.9 x10^3/uL (4.0-11.0) H Red Blood Count 6.07 x10^6/uL (4.30-5.70) H Hemoglobin 14.1 g/dL (13.0-17.5) Hematocrit 44.0 % (39.0-53.0) Mean Corpuscular Volume 73 fL (79-100) L Mean Corpuscular Hemoglobin 23 pg (25-35) L Mean Corpuscular Hemoglobin Concent 32 g/dL (31-37) Red Cell Distribution Width 14.8 % (11.5-14.5) H Platelet Count 321 x10^3/uL (140-400) Neutrophils (%) (Auto) 74 % (31-73) H Lymphocytes (%) (Auto) 18 % (24-48) L Monocytes (%) (Auto) 7 % (0-9) Eosinophils (%) (Auto) 0 % (0-3) Basophils (%) (Auto) 1 % (0-3) Neutrophils # (Auto) 10.3 x10^3/uL (1.8-7.7) H Lymphocytes # (Auto) 2.5 x10^3/uL (1.0-4.8) Monocytes # (Auto) 1.0 x10^3/uL (0.0-1.1) Eosinophils # (Auto) 0.1 x10^3/uL (0.0-0.7) Basophils # (Auto) 0.1 x10^3/uL (0.0-0.2) Sodium Level 138 mmol/L (136-145) Potassium Level 4.3 mmol/L (3.5-5.1) Chloride Level 103 mmol/L (98-107) Carbon Dioxide Level 24 mmol/L (21-32) Anion Gap 11 (6-14) Blood Urea Nitrogen 17 mg/dL (8-26) Creatinine 1.1 mg/dL (0.7-1.3) Estimated GFR (Cockcroft-Gault) 69.2 Glucose Level 125 mg/dL (70-99) H Calcium Level 9.0 mg/dL (8.5-10.1) Total Bilirubin 0.3 mg/dL (0.2-1.0) Direct Bilirubin 0.1 mg/dL (0.0-0.2) Aspartate Amino Transferase (AST) 19 U/L (15-37) Alanine Aminotransferase (ALT) 41 U/L (16-63) Alkaline Phosphatase 105 U/L (46-116) Creatine Kinase 36 U/L (39-308) L Troponin I Quantitative < 0.017 ng/mL (0.000-0.055) Total Protein 7.2 g/dL (6.4-8.2) Albumin 3.6 g/dL (3.4-5.0) Lipase 107 U/L (73-393) Laboratory Tests 03/01/21 00:30 Laboratory Tests 03/01/21 00:30 Vital Signs: Vital Signs Date Time Temp Pulse Resp B/P (MAP) Pulse Ox O2 Delivery O2 Flow Rate FiO2 03/01/21 00:14 97.9 107 26 132/89 (125) 97 Room Air 97.9 EKG: EKG: Sinus rhythm 91 bpm, no axis deviation, normal intervals, no T wave inversion, no ST elevations or ST depressions Radiology/Procedures: Radiology/Procedures: []IMAGING REPORT Signed PATIENT: BESSIE ZAPATA AACCOUNT: [id number] : 1965 LOCATION: ER AGE: 56 SEX: M EXAM STATUS: REG ER ORD. PHYSICIAN: YOLY EDEN DO REASON: abd pain PROCEDURE: PORTABLE CHEST 1V XR CHEST 1V INDICATION: Reason: abd pain / Spl. Instructions: / History: . COMPARISON STUDY: None. FINDINGS: Lungs: Normal lung volume. No pulmonary mass or consolidation. The tracheobronchial tree and hilar structures are normal. Pleura: No pleural effusion or pneumothorax. Heart and Mediastinum: The cardiomediastinal silhouette is normal. The great vessels of the thorax are normal. Bones and Soft Tissues: The bones and soft tissues are within normal limits. IMPRESSION: No acute cardiopulmonary process. Electronically signed by: Reza Falcon MD (03/01/2021 2:46 AM) [facility] DICTATED and SIGNED BY: REZA FALCON MD DATE: 03/01/21 [id number] 0 IMAGING REPORT Signed PATIENT: BESSIE ZAPATA AACCOUNT: [id number] : 1965 LOCATION: ER AGE: 56 SEX: M EXAM STATUS: PRE ER ORD. PHYSICIAN: YOLY EDEN DO REASON: abd pain PROCEDURE: CT ABD PELV W/ IV CONTRST ONLY CT ABDOMEN+PELVIS W History: abd pain Comparison: 08/26/2020. Technique: After administration of intravenous contrast, helical CT of the abdomen and pelvis was performed from the lung bases through the ischial tuberosities. Coronal and sagittal reconstructions were obtained. One or more of the following dose reduction techniques were utilized: Automated exposure control (AEC), Adjustment of mA and/or kV according to patient size, Use of iterative reconstruction technique such as ASiR, CT scan done according to ALARA and image gently/image wisely Abdomen Findings: The visualized lung bases are clear. The liver, pancreas, spleen, and bilateral adrenal glands are normal. Cholecystectomy. Symmetric renal enhancement. There is no focal renal mass. There is no hydronephrosis. The visualized loops of small bowel are normal. Colonic diverticulosis. There is no evidence of bowel obstruction. Appendix is normal. There is no free fluid. There is no mesenteric or retroperitoneal adenopathy. The abdominal aorta is normal in caliber. Pelvis Findings: Circumferential bladder wall thickening. Mildly enlarged prostate measures 4.7 cm transverse. No pelvic free fluid. There is no pelvic or inguinal adenopathy. There is no acute bony abnormality. Small fat-containing inguinal hernias. IMPRESSION: Mild bladder wall thickening could relate to underdistention, cystitis, or obstructive muscular hypertrophy. Colonic diverticulosis without evidence of acute diverticulitis. Cholecystectomy. Electronically signed by: Reza Falcon MD (03/01/2021 2:04 AM) [facility] DICTATED and SIGNED BY: REZA FALCON MD DATE: 03/01/21 [id number] 0 Course & Med Decision Making: Course & Med Decision Making Pertinent Labs and Imaging studies reviewed. (See chart for details) Concern for epigastric abdominal pain for the past 2 and half weeks, low heart score with negative troponin. EKG with no ischemia. Labs show nonspecific leukocytosis. CTA chest x-ray with no specific pathology to indicate patient symptoms. Patient has been noncompliant with his Pepcid. Possible cystitis on CT, patient with no dysuria or hematuria. Will DC home with Pepcid, strict ED return precautions were given for melena, hematochezia, hematemesis, syncope or exertional dyspnea. Encouraged urgent outpatient follow-up with PMD and GI. Life-threatening processes were considered but are low suspicion at this time, given history, physical exam and ED workup. Pt was educated on all prescription medications and adverse effects. All patient's questions were answered and pt was stable at time of discharge. Life/limb-threatening differential includes but is not limited to, aortic dissection, aortic aneurysm, acute coronary syndrome, surgical abdomen (appendicitis, cholecystitis, ischemic bowel, strangulated hernia, etc), bowel obstruction or volvulus, bladder outlet obstruction, gastrointestinal bleeding, inflammatory bowel disease, peptic ulcer disease, ACS/CAD, sepsis, diverticular disease, ureterolithiasis, nephrolithiasis, testicular torsion, or genitourinary infection. I have spoken with the patient and/or caregivers. I explained the patient's condition, diagnoses and treatment plan based on the information available to me at this time. I have answered the patient and/or caregiver's questions and addressed any concerns. The patient and/or caregivers have a good understanding of patient's diagnosis, condition and treatment plan as can be expected at this point. Vital signs have been stable. Patient's condition is stable and appropriate for discharge from the emergency department. Patient will pursue further outpatient evaluation with primary care physician or other designated or consulting physician as outlined in the discharge instructions. The patient and/or caregivers are agreeable to this plan of care and follow-up instructions have been explained in detail. The patient and/or caregivers have received these instructions in written form and have expressed an understanding of the discharge instructions. The patient and/or caregivers are aware that any significant change of condition or worsening of symptoms should prompt immediate return to this or the closest emergency department or call to 911. Johnny Disclaimer: Johnny Disclaimer: This electronic medical record was generated, in whole or in part, using a voice recognition dictation system. Departure Departure Impression: Primary Impression: Abdominal pain Additional Impression: Noncompliance with medications Disposition: 01 HOME / SELF CARE / HOMELESS Condition: STABLE Referrals: AMADA BROWN MD (PCP) Follow-up with your primary care physician in 24 to 48 hours OR FOLLOW UP WITH FAMILY MEDICINE: [address], [address] [place] [address] Patient Instructions: Abdominal Pain, Gastritis, Adult Additional Instructions: FOLLOW UP WITH GASTROENTEROLOGY: FOR DEFINITIVE MANAGEMENT of gastritis [facility] [address] [place] [address] EMERGENCY DEPARTMENT GENERAL DISCHARGE INSTRUCTIONS Thank you for coming to [facility] Emergency Department (ED) today and trusting us with you care. We trust that you had a positive experience in our Emergency Department. If you wish to speak to the department management, you may call the Director at [phone]. YOUR FOLLOW UP INSTRUCTIONS ARE FOLLOWS: 1. Do you have a private Doctor? If you do not have a private doctor, please ask for a resource list of physicians or clinics that may be able to assist you with follow up care. 2. The Emergency Physicain has interpreted your x-rays. The X-Ray specialist will also review them. If there is a change in the findings, you will be notified in 48 hours when at all possible. 3. A lab test or culture has been done, your results will be reviewed and you will be notified if you need a change in treatment. ADDITIONAL INSTRUCTIONS AND INFORMATION: 1. Your care today has been supervised by a physician who is specially trained in emergency care. Many problems require more than one evaluation for a complete diagnosis and treatment. We recommend that you schedule your follow up appointment as recommended to ensure complete treatment of you illness or injury. If you are unable to obtain follow up care and continue to have a problem, or if your condition worsens, we recommend that you return to the ED. 2. We are not able to safely determine your condition over the phone nor are we able to give sound medical advice over the phone. For these safety reasons, if you call for medical advice we will ask you to come to the ED for further evaluation. 3. If you have any questions regarding these discharge instructions please call the ED at [phone]. SAFETY INFORMATION: In the interest of safety, wellness, and injury prevention; we encourage you to wear your sealbelt, if you smoke; quite smoking, and we encourage family to use a protective helmet for bicycling and other sporting events that present an increased risk for head injury. IF YOUR SYMPTOMS WORSEN OR NEW SYMPTOMS DEVELOP, OR YOU HAVE CONCERNS ABOUT YOUR CONDITION; OR IF YOUR CONDITION WORSENS WHILE YOU ARE WAITING FOR YOUR FOLLOW UP APPOINTMENT; EITHER CONTACT YOUR PRIMARY CARE DOCTOR, THE PHYSICIAN WHOSE NAME AND NUMBER YOU WERE GIVEN, OR RETURN TO THE ED IMMEDIATELY. Scripts Famotidine (PEPCID) 20 Mg Tablet 20 MG PO BID for 14 Days, #28 TAB Prov: YOLY EDEN DO 03/01/21 Famotidine (PEPCID) 20 Mg Tablet 20 MG PO BID for 14 Days, #28 TAB Prov: YOLY EDEN DO 03/01/21 YOLY EDEN DO Mar 01, 2021 01:17
[2021-03-01] MEDS ORDERED: CONTRAST GIVEN. MC PRN (01:30)
[2021-03-01] MEDS ORDERED: ONDANSETRON PF 4 MG/2 ML VIAL. IVP ONE (01:30)
[2021-03-01] MEDS ORDERED: IOHEXOL 300 MG/ML 100ML VIAL. IV ONE (02:00)
--- NOTE | 2021-03-01 02:06 | RAD ---
CT ABDOMEN+PELVIS W History: abd pain Comparison: 08/26/2020. Technique: After administration of intravenous contrast, helical CT of the abdomen and pelvis was per formed from the lung bases through the ischial tuberosities. Coronal and sagittal reconstructions wer e obtained. One or more of the following dose reduction techniques were utilized: Automated exposure control (AEC), Adjustment of mA and/or kV according to patient size, Use of iterative reconstruction technique such as ASiR, CT scan done according to ALARA and image gently/image wisely Abdomen Findings: The visualized lung bases are clear. The liver, pancreas, spleen, and bilateral adrenal glands are normal. Cholecystectomy. Symmetric renal enhancement. There is no focal renal mass. There is no hydronephrosis. The visualized loops of small bowel are normal. Colonic diverticulosis. There is no evidence of bowel obstruction. Appendix is normal. There is no free fluid. There is no mesenteric or retroperitoneal adenopathy. The abdominal aorta is normal in caliber. Pelvis Findings: Circumferential bladder wall thickening. Mildly enlarged prostate measures 4.7 cm transverse. No pelv ic free fluid. There is no pelvic or inguinal adenopathy. There is no acute bony abnormality. Small fat-containing inguinal hernias. IMPRESSION: Mild bladder wall thickening could relate to underdistention, cystitis, or obstructive muscular hyper trophy. Colonic diverticulosis without evidence of acute diverticulitis. Cholecystectomy. Electronically signed by: Bola Falcon MD (03/01/2021 2:04 AM) [facility]
--- NOTE | 2021-03-01 02:49 | RAD ---
XR CHEST 1V INDICATION: Reason: abd pain / Spl. Instructions: / History: . COMPARISON STUDY: None. FINDINGS: Lungs: Normal lung volume. No pulmonary mass or consolidation. The tracheobronchial tree and hilar st ructures are normal. Pleura: No pleural effusion or pneumothorax. Heart and Mediastinum: The cardiomediastinal silhouette is normal. The great vessels of the thorax ar e normal. Bones and Soft Tissues: The bones and soft tissues are within normal limits. IMPRESSION: No acute cardiopulmonary process. Electronically signed by: Bola Falcon MD (03/01/2021 2:46 AM) [facility]
[2021-03-01] MEDS ORDERED: LIDO:MAALOX 1:1 20 ML SINGLE DOSE. SWSW ONE (04:30)
[2021-03-01] MEDS ORDERED: KETOROLAC 15 MG/ML VIAL. IVP ONE (04:30)
[2021-03-01] MEDS ORDERED: FAMO-63 PO ×2 (05:15→05:33)
[2021-03-01 05:16] VITALS: BP 136/71
--- NOTE | 2021-03-01 05:22 | EKG ---
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
== END 2021-03-01 05:40 | disposition home or self-care (01) ==
LOC: ER 22:42
DX: R10.13 Epigastric pain (principal); Z91.14 Patient's other noncompliance with medication regimen; I10 Essential (primary) hypertension; J44.9 Chronic obstructive pulmonary disease, unspecified; G89.29 Other chronic pain; Z90.49 Acquired absence of other specified parts of digestive tract; Z87.891 Personal history of nicotine dependence; Z88.1 Allergy status to other antibiotic agents
CPT/HCPCS: 36415; 71045; 74177; 80048; 80076; 82550; 83690; 84484; 85025; 93005; 96361; 96374; 96375; 96376; 99285; C9113; J1885; J2270; J2405; J3490; J7030; Q9967

== ENCOUNTER 2021-07-19 04:36 | Emergency (ER) | payer OTHER ==
[~2021-07-19] VITALS: Ht 175.3 cm; Wt 111.4 kg
[~2021-07-19 04:36] MED LIST changes: +CYCL10TA19 PO; -CYCL10TA2 PO; +FAMO-63 PO
--- NOTE | 2021-07-19 05:41 | PHYS DOC ---
Past Medical History Past Medical History: COPD, Hypertension, Other Additional Past Medical Histor: Upper Respiratory Infection,CHRONIC NECK PAIN (YOLY EDEN DO) Past Surgical History: Cholecystectomy, Other Additional Past Surgical Histo: R testicular surgery (YOLY EDEN DO) Smoking Status: Current Every Day Smoker Alcohol Use: None Drug Use: Marijuana (YOLY EDEN DO) General Adult EDM: Chief Complaint: SHOUDLER HPI: HPI: 56-year-old male past medical history of COPD, GERD, hypertension, former tobacco use, and history of cervical radiculopathy, presents to the ED with complaints of atraumatic, left shoulder and clavicular pain that started around 3 PM earlier today. Patient cannot recall a specific mechanism of injury but states he has difficulty lifting his left shoulder above the shoulder joint. No prior injury to this extremity. Denies any alcohol or drug use. States he is tolerating oral intake. Has not taken anything for the pain. No recent URI. (YOLY EDEN DO) Review of Systems: Review of Systems: Constitutional: Denies fever or chills or weight loss Eyes: Denies change in visual acuity. [] HENT: Denies nasal congestion or sore throat. [] Respiratory: Denies cough or shortness of breath. [] Cardiovascular: Denies chest pain or edema. [] GI: Denies abdominal pain, nausea, vomiting, bloody stools or diarrhea. [] Musculoskeletal: Denies back pain or flank pain Integument: Denies rash or diaphoresis Neurologic: Denies headache, focal weakness or sensory changes. [] Endocrine: Denies polyuria or polydipsia. [] Lymphatic: Denies swollen glands. [] Psychiatric: Denies depression or anxiety. [] (YOLY EDEN DO) Heart Score: C/O Chest Pain: No Risk Factors: Risk Factors: DM, Current or recent (<one month) smoker, HTN, HLP, family history of CAD, obesity. Risk Scores: Score 0 - 3: 2.5% MACE over next 6 weeks - Discharge Home Score 4 - 6: 20.3% MACE over next 6 weeks - Admit for Clinical Observation Score 7 - 10: 72.7% MACE over next 6 weeks - Early Invasive Strategies (YOLY EDEN DO) C/O Chest Pain: No (NONI STEPHENS MD) Allergies: Allergies: Allergies Coded Allergies Type Severity Reaction Last Updated Verified Penicillins Allergy Intermediate 07/19/21 Yes doxycycline Allergy Intermediate hives 07/19/21 Yes tetracycline Allergy Intermediate Hives 12/30/20 Yes (YOLY EDEN DO) Physical Exam: PE: Constitutional: Well developed, well nourished, no acute distress, non-toxic appearance, steady gait HENT: Normocephalic, atraumatic, moist mucous membranes Eyes: EOMI, conjunctiva normal, no discharge. Neck: Normal range of motion, supple, no midline pain Cardiovascular: S1/2 present, tachycardic rhythm Lungs & Thorax: Speaking in full sentences, bilateral equal chest rise, no tachypnea or increased work of breathing, nonpainful soft raised lump above mid left clavicle, no deformity, equal radial pulses, decreased left shoulder extension and adduction, median/ulnar/radial/axillary nerve sensation intact, normal range of motion of left elbow wrist and hand Abdomen: soft, no tenderness, obese, Skin: Warm, dry, no erythema, no rash. [] Back: No midline spinal step-offs or tenderness, no CVA tenderness. [] Extremities: No tenderness, no cyanosis, Neurologic: Alert and oriented X 3, normal motor function, normal sensory function, no focal deficits noted. [] Psychologic: Affect normal, judgement normal, mood normal. [] (YOLY EDEN DO) Current Patient Data: Vital Signs: Vital Signs Date Time Temp Pulse Resp B/P (MAP) Pulse Ox O2 Delivery O2 Flow Rate FiO2 07/19/21 04:45 97.8 109 18 144/95 (111) 97 Room Air 97.8 (YOLY EDEN DO) EKG: EKG: [] (YOLY EDEN DO) Radiology/Procedures: Radiology/Procedures: [] (YOLY EDEN DO) Course & Med Decision Making: Course & Med Decision Making Pertinent Labs and Imaging studies reviewed. (See chart for details) Concern for atraumatic left clavicule and left shoulder pain in the setting of p ossible lipoma versus supraclavicular lymph node and tachycardia. X-rays not consistent with any fracture or traumatic process. EKG with no active ischemia. Physical exam with no facial plethora or JVD. Patient is pending labs and CT imaging. Patient had a normal CT abd/pelvis in February. Unsure if patient's physical exam is an incidental finding. Due to shift change patient was signed out to oncoming physician Dr. Crews for further medical evaluation and disposition. (YOLY EDEN DO) Course & Med Decision Making Accepted patient care at shift change, pending repeat troponin and CT results.\\ Patient complaining of nontraumatic left shoulder pain x1 day and supraclavicular bump for the past few months. No emergent or life-threatening pathology found on work-up. Given information to follow-up with orthopedics for left shoulder pain, advised to follow-up with primary care for lump of her left clavicle. CT does not make any remarks on left superficial lump that looks like it is possibly cystic on CT. (NONI STEPHENS MD) Dragon Disclaimer: Dragon Disclaimer: This electronic medical record was generated, in whole or in part, using a voice recognition dictation system. (YOLY EDEN DO) Departure Departure Impression: Primary Impression: Left shoulder pain Disposition: HOME / SELF CARE / HOMELESS Condition: STABLE Referrals: AMADA BROWN MD (PCP) JULIETTE JACQUES II, MD Patient Instructions: RICE - Routine Care for Injuries YOLY EDEN DO Jul 19, 2021 05:41 NONI STEPHENS MD Jul 19, 2021 10:01
[2021-07-19] MEDS ORDERED: IV NORMAL SALINE 1000ML BAG 1,000 ML IV SCH (06:00)
[2021-07-19 06:11] LABS: BASO # 0.1 x10^3/uL (0.0-0.2); BASO % 1 % (0-3); EOS # 0.2 x10^3/uL (0.0-0.7); EOS % 2 % (0-3); HEMATOCRIT 39.4 % (39.0-53.0); HEMOGLOBIN 12.5 g/dL (13.0-17.5); LYMPH # 2.6 x10^3/uL (1.0-4.8); LYMPH % 23 % (24-48); MEAN CORPUSCULAR HEMOGLOBIN 23 pg (25-35); MEAN CORPUSCULAR HGB CONC 32 g/dL (31-37); MEAN CORPUSCULAR VOLUME 73 fL (79-100); MONO # 0.9 x10^3/uL (0.0-1.1); MONO % 8 % (0-9); NEUT # 7.4 x10^3/uL (1.8-7.7); NEUT % 66 % (31-73); PLATELET COUNT 296 x10^3/uL (140-400); RED BLOOD COUNT 5.42 x10^6/uL (4.30-5.70); RED CELL DISTRIBUTION WIDTH 14.7 % (11.5-14.5); WHITE BLOOD COUNT 11.2 x10^3/uL (4.0-11.0)
[2021-07-19 06:15] VITALS: BP 135/77
[2021-07-19 06:15] LABS: CALCIUM 8.1 mg/dL (8.5-10.1); GFR 77.3; POTASSIUM 3.9 mmol/L (3.5-5.1)
[2021-07-19 06:16] LABS: ALBUMIN 3.5 g/dL (3.4-5.0); ALBUMIN/GLOBULIN RATIO 1.1 (1.0-1.7); TOTAL BILIRUBIN 0.5 mg/dL (0.2-1.0); TOTAL PROTEIN 6.8 g/dL (6.4-8.2)
[2021-07-19] MEDS ORDERED: CONTRAST GIVEN. MC PRN (07:00)
--- NOTE | 2021-07-19 07:26 | RAD ---
EXAM: CT Chest, Abdomen and Pelvis with IV contrast CLINICAL HISTORY: Reason: supraclavicular node?, clavicle and left shoulder pain COMPARISON: 03/01/2021 08/26/2020 TECHNIQUE: Helical CT of the chest, abdomen and pelvis was performed following the administration of intravenous contrast. Axial, coronal and sagittal reformatted images were generated. ---PQRS compliance statement - One or more of the following individualized dose reduction techniques were utilized for this study: 1. Automated exposure control 2. Adjustment of the mA and/or kV according to patient size 3. Use of iterative reconstruction technique--- FINDINGS: Chest: 1.6 cm hypodense right thyroid nodule is seen. No axillary lymphadenopathy. No definite supraclavicular, mediastinal or hilar lymphadenopathy. No pleural effusion. No pneumothorax. Dependent groundglass opacities lower lobes likely atelectasis. Calcified granuloma right upper lobe. Evaluation of the lungs limited by motion artifact. Abdomen and Pelvis: Hepatic hypoattenuation, fatty liver. Accounting for postcholecystectomy change, no biliary ductal di latation. Spleen, adrenal glands and pancreas are unremarkable. Symmetric nephrograms. No focal renal lesion. No hydronephrosis. No hydroureter. Diffuse bladder wall thickening likely cystitis. Colonic diverticulosis. Trace fat-containing periumbilical hernia. Small fat-containing inguinal hernias. No abdominal or pelvic ascites. No abdominal or pelvic lymphadenopathy. Moderate colonic stool content. No small or large bowel dilatation. No bowel obstruction. Colonic div erticula are seen. No evidence for acute diverticulitis. Aorta is normal in caliber. Bones: Multifocal degenerative changes of the spine are seen. Hip joint degenerative changes are seen . IMPRESSION: 1. Diffuse bladder wall thickening seen with cystitis. 2. Hepatic hypoattenuation consistent with fatty liver. No thoracic, abdominal or pelvic lymphadenop athy by size criteria. 3. Fat-containing intraluminal in periumbilical hernia. 4. Punctate nonobstructing left lower pole renal calculus. Electronically signed by: Jaziel Mott MD (07/19/2021 7:24 AM) [id number]
[2021-07-19] MEDS ORDERED: IOHEXOL 300 MG/ML 100ML VIAL. IV ONE (07:30)
--- NOTE | 2021-07-19 08:28 | RAD ---
XR SHOULDER_LEFT 2+ VIEWS, XR LEFT CLAVICLE dated 07/19/2021 5:03 AM. History: Reason: left shoulder pain Comparison: None. Findings: Left clavicle: No fracture or dislocation is seen. There is no apparent destructive process. Mild art hritic changes are present at the AC joint. Left shoulder: No fracture or dislocation is seen. There is minimal OA at the glenohumeral joint. The re is no apparent destructive process. Impression: 1. Mild arthritic changes. No apparent acute abnormality. Electronically signed by: Tristan Benson Jr., MD (07/19/2021 8:25 AM) [facility]
== END 2021-07-19 10:10 | disposition home or self-care (01) ==
LOC: ER 04:36
DX: M25.512 Pain in left shoulder (principal); J44.9 Chronic obstructive pulmonary disease, unspecified; I10 Essential (primary) hypertension; F17.200 Nicotine dependence, unspecified, uncomplicated; G89.29 Other chronic pain; K21.9 Gastro-esophageal reflux disease without esophagitis; Z88.0 Allergy status to penicillin; Z88.1 Allergy status to other antibiotic agents
CPT/HCPCS: 36415; 71260; 73000; 73030; 74177; 80053; 83880; 84484; 85025; 93005; 96360; 99285; J7030; Q9967

== ENCOUNTER 2021-08-25 06:37 | Emergency (ER) | payer OTHER ==
[~2021-08-25] VITALS: Ht 175.3 cm; Wt 113.6 kg
--- NOTE | 2021-08-25 07:04 | PHYS DOC ---
Past Medical History Past Medical History: COPD, Hypertension, Other Additional Past Medical Histor: Upper Respiratory Infection,CHRONIC NECK PAIN Past Surgical History: Cholecystectomy, Other Additional Past Surgical Histo: R testicular surgery Smoking Status: Current Every Day Smoker Alcohol Use: None Drug Use: Marijuana General Adult HPI: HPI: Patient is a 56 year old male with history of HTN, COPD, previous smoker, obes ity who presents with left-sided chest pressure. Started 1.5 hours prior to arrival. Was sitting watching television when it began. Primarily over the left side of the chest and radiates into the left arm. He has chronic paresthesias in the left arm that he feels are worse. Denies history of similar pain. Accompanied by shortness of breath and chills. Denies cough, congestion, sore throat, rhinorrhea, or COVID exposure. Is not vaccinated against COVID. Has bilateral lower extremity edema, no new unilateral symptoms. No recent surgeries or immobilizations. No history of DVT/PE. No alleviating factors. Aggravating factors include palpation of the left-sided chest wall. No overlying rashes or skin changes. Review of Systems: Review of Systems: Constitutional: Denies fever. Reports chills Eyes: Denies change in visual acuity. [] HENT: Denies nasal congestion or sore throat. [] Respiratory: Denies cough. Reports shortness of breath. Cardiovascular: Reports chest pain and bilateral lower extremity edema. GI: Denies abdominal pain, nausea, vomiting, bloody stools or diarrhea. [] : Denies dysuria. [] Musculoskeletal: Denies back pain or joint pain. [] Integument: Denies rash. [] Neurologic: Denies headache, focal weakness. Reports worsening of chronic left arm paresthesias. Heart Score: C/O Chest Pain: Yes HEART Score for Chest Pain: HEART Score for Chest Pain Response (Comments) Value History Moderately Suspicious 1 ECG Normal 0 Age >45 - < 65 1 Risk Factors >3 Risk Factors or Hx CAD 2 Total 4 Risk Factors: Risk Factors: HTN, obesity, former smoker Risk Scores: Score 4 - 6: 20.3% MACE over next 6 weeks - Admit for Clinical Observation Current Medications: Current Medications Medications (Trade) Dose Ordered Sig/Job Start Time Stop Time Status Last Admin Dose Admin Aspirin (Aspirin Chewable) 324 mg 1X ONCE 08/25/21 06:45 08/25/21 06:48 DC Nitroglycerin (Nitrostat) 0.4 mg PRN Q5MIN PRN 08/25/21 06:45 Allergies: Allergies: Allergies Coded Allergies Type Severity Reaction Last Updated Verified Penicillins Allergy Intermediate 07/19/21 Yes doxycycline Allergy Intermediate hives 07/19/21 Yes tetracycline Allergy Intermediate Hives 12/30/20 Yes Physical Exam: PE: Constitutional: Clutching left-sided chest, mildly tachypneic, appears uncomfortable. Not diaphoretic. HENT: Normocephalic, atraumatic] Cardiovascular: Tachycardic and regular Lungs & Thorax: Bilateral breath sounds clear to auscultation. Pain seems to be reproducible with very light touch over the left pectoralis muscle. No overlying skin changes. [] Abdomen: Bowel sounds normal, soft, no tenderness, no masses, no pulsatile m asses. [] Skin: Warm, dry, no erythema, no rash. [] Back: No tenderness, no CVA tenderness. [] Extremities: Trace bilateral lower extremity edema. Bilateral radial and DP pulses equal and 2+. Neurologic: Alert and oriented X 3, normal motor function, normal sensory function, no focal deficits noted. [] EKG: EKG: Sinus tachycardia. Rate 117. Normal axis. Normal intervals. QTc 454. No ST elevation or depression. No pathologic Q waves or T wave inversions. [] Radiology/Procedures: Radiology/Procedures: [] Impression: [facility] [address] [place] [address] IMAGING REPORT Signed PATIENT: BESSIE ZAPATA AACCOUNT: [id number] : 1965 LOCATION: ER AGE: 56 SEX: M EXAM STATUS: REG ER ORD. PHYSICIAN: NELLY JOY MD REASON: left chest pain PROCEDURE: CHEST AP ONLY EXAMINATION: Chest radiograph. VIEWS: Single AP view of the chest COMPARISON: 03/01/2021 INDICATION:56 years, Male, left chest pain. FINDINGS: Lungs are mildly hypoinflated. Normal cardiomediastinal silhouette. Left basilar curvilinear opacities with associated volume loss. No focal consolidations. No pleural effusion or pneumothorax. No acute osseous process. IMPRESSION: Mildly hypoventilatory exam with left basilar curvilinear opacities favoring subsegmental atelectasis. Electronically signed by: Angelica Fierro DO (08/25/2021 7:31 AM) [facility] DICTATED and SIGNED BY: ANGELICA FIERRO DO DATE: 08/25/21 [id number] Course & Med Decision Making: Course & Med Decision Making Pertinent Labs and Imaging studies reviewed. (See chart for details) Patient 56-year-old male with history of HTN, obesity, smoking who presents with left-sided chest pressure beginning 1.5 hours prior to arrival with accompanying sob and chills. EKG shows sinus tachycardia without overt ischemia. DDx includes ACS, PE, pneumonia (including Covid). Less likely pneumothorax or aortic dissection given exam and history. No evidence of overlying skin changes to suggest shingles. He is very tender over the left pectoralis muscle with some reproducible pain, so potentially musculoskeletal, but seems less likely as this came on abruptly while at rest. 0703 Initial troponin is negative. Will require a serial troponins given timing to exclude CO. Dimer +, will obtain CTA chest. Patient is refusing COVID swab stating he's had too many friends with "bad reactions to it." When the testing was explained to the patient and reassurance that no "bad reactions" would result he repetetively stated, "not gonna do it." 0823 Patient was initially agreeable to CT angiography. However, he required a new IV to be placed. At that time he began to refuse further care and requested discharge AGAINST MEDICAL ADVICE. He is advised of the risks of missed CO, PE, pneumonia, COVID and risks of complications from missed diagnosis up to and including . 0905 Johnny Disclaimer: Johnny Disclaimer: This electronic medical record was generated, in whole or in part, using a voice recognition dictation system. Departure Departure Impression: Primary Impression: Chest pain Additional Impression: Left against medical advice Disposition: 07 LEFT AGAINST MEDICAL ADVICE Condition: GUARDED Referrals: AMADA BROWN MD (PCP) NELLY JOY MD Aug 25, 2021 07:04
--- NOTE | 2021-08-25 07:16 | EKG ---
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
[2021-08-25] MEDS: ASPIRIN CHEWABLE 81 MG TABLET. PO ONE (07:31)
[2021-08-25 07:33] LABS: GFR 77.3; POTASSIUM 3.7 mmol/L (3.5-5.1)
--- NOTE | 2021-08-25 07:33 | RAD ---
EXAMINATION: Chest radiograph. VIEWS: Single AP view of the chest COMPARISON: 03/01/2021 INDICATION:56 years, Male, left chest pain. FINDINGS: Lungs are mildly hypoinflated. Normal cardiomediastinal silhouette. Left basilar curvilinear opacitie s with associated volume loss. No focal consolidations. No pleural effusion or pneumothorax. No acute osseous process. IMPRESSION: Mildly hypoventilatory exam with left basilar curvilinear opacities favoring subsegmental atelectasis . Electronically signed by: Kirk Fierro DO (08/25/2021 7:31 AM) [facility]
[2021-08-25 07:39] LABS: BASO % 0 % (0-3); EOS # 0.1 x10^3/uL (0.0-0.7); EOS % 2 % (0-3); HEMATOCRIT 32.9 % (39.0-53.0); HEMOGLOBIN 10.7 g/dL (13.0-17.5); LYMPH # 0.6 x10^3/uL (1.0-4.8); LYMPH % 6 % (24-48); MEAN CORPUSCULAR HEMOGLOBIN 23 pg (25-35); MEAN CORPUSCULAR HGB CONC 32 g/dL (31-37); MEAN CORPUSCULAR VOLUME 72 fL (79-100); MONO # 0.8 x10^3/uL (0.0-1.1); MONO % 9 % (0-9); NEUT # 7.5 x10^3/uL (1.8-7.7); NEUT % 83 % (31-73); PLATELET COUNT 260 x10^3/uL (140-400); RED BLOOD COUNT 4.58 x10^6/uL (4.30-5.70); RED CELL DISTRIBUTION WIDTH 14.5 % (11.5-14.5)
[2021-08-25 07:40] LABS: ALBUMIN 3.2 g/dL (3.4-5.0); TOTAL BILIRUBIN 0.2 mg/dL (0.2-1.0); TOTAL PROTEIN 6.5 g/dL (6.4-8.2)
[2021-08-25] MEDS: NITROGLYCERIN SUBLINGUAL 0.4 MG BOTTLE OF 25. SL PRN (07:42)
[2021-08-25] MEDS: IOHEXOL 350 MG/ML 100 ML VIAL. IV ONE (08:30)
[2021-08-25] MEDS ORDERED: CONTRAST GIVEN. MC PRN (08:30)
[2021-08-25 08:43] VITALS: BP 170/93
[2021-08-25 10:05] LABS: ANISOCYTOSIS MOD; HYPOCHROMIA SLIGHT; PLT ESTIMATE ADEQUATE (ADEQUATE)
--- NOTE | 2021-08-25 14:20 | EKG ---
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
== END 2021-08-25 08:58 | disposition left against medical advice (07) ==
LOC: ER 06:37
DX: R07.89 Other chest pain (principal); J44.9 Chronic obstructive pulmonary disease, unspecified; I10 Essential (primary) hypertension; F17.200 Nicotine dependence, unspecified, uncomplicated; Z88.0 Allergy status to penicillin; Z88.1 Allergy status to other antibiotic agents
CPT/HCPCS: 36415; 71045; 80053; 84484; 85025; 85379; 93005; 99285-25